=== PATIENT | male | born 1980 | race Caucasian/White ===

== ENCOUNTER → 2019-07-05 09:04 | Outpatient (CLI) | payer OTHER, SELFPAY ==
--- NOTE | 2019-07-05 09:07 | US_ITS ---
PROCEDURE: US SOFT TISSUE HEAD AND NECK the CLINICAL INDICATION: CERVICAL LYMPHADENOPATHY COMPARISON: US THYROID from 07/05/2019 FINDINGS: No cyst or nodule is evident. There is homogeneous echogenicity the parotid and submandibular glands. No abnormal fluid collection. IMPRESSION: Unremarkable ultrasound of the soft tissues of the neck. Dictated by: Elian Klein MD 07/22/2019 11:20 Electronically signed by Elian Klein MD in [place] 07/22/2019 11:20
--- NOTE | 2019-07-05 09:07 | US_ITS ---
PROCEDURE: US THYROID CLINICAL INDICATION: THYROMEGALY Knot in throat COMPARISON: US SOFT TISSUE HEAD AND NECK from 07/05/2019 FINDINGS: Right lobe: The 4.6 x 1.8 x 1.3 cm. No nodules. Slight heterogeneous echogenicity Left lobe: 4.4 x 1.8 x 1.4 cm. No discrete nodule with slight heterogeneous echogenicity Isthmus: The isthmus is thickened at 8 mm Additional findings: IMPRESSION: Enlarged thyroid gland. No discrete nodules Dictated by: Elian Klein MD 07/05/2019 18:45 Electronically signed by Elian Klein MD in [place] 07/05/2019 18:45
== END ==
PROVIDERS: PCP Nurse Practitioner; Visit Provider Nurse Practitioner
DX: R59.0 Localized enlarged lymph nodes (principal); E01.0 Iodine-deficiency related diffuse (endemic) goiter
CPT/HCPCS: 76536

== ENCOUNTER → 2019-08-19 10:14 | Outpatient (POV) | payer OTHER, SELFPAY ==
[2019-08-19 10:29] VITALS: BP 135/80; PULSE 93; RESP 18; O2SAT 99; BMI 39.0
--- NOTE | 2019-08-19 12:28 | HMH.PMCON ---
Assessment and Plan (1) Degenerative joint disease (DJD) of lumbar spine Current visit: Yes Status: Acute Category: Medical Code(s): M47.816 - Spondylosis without myelopathy or radiculopathy, lumbar region (2) Lumbar radiculopathy Current visit: Yes Status: Acute Category: Medical Code(s): M54.16 - Radiculopathy, lumbar region (3) Bilateral sacroiliitis Current visit: Yes Status: Acute Category: Medical Code(s): M46.1 - Sacroiliitis, not elsewhere classified - Assessment and plan all Dx Assessment and Plan for all problems:: Given the patient symptoms, I do think he would benefit from a bilateral SI joint injection. He does have notable point tenderness over his bilateral SI joints. We will schedule him for the injections and see him back in the clinic to reassess his symptoms. I also discussed that in the event that the injections do not give him relief we may proceed to a lumbar epidural steroid injection he is in agreement with the plan of care. He is not on any anticoagulation therapy We will refill the patient's Flexeril 10 mg 1 tablet p.o. 3 times daily. Patient's been instructed to contact clinic if he has any concerns before his next appointment. Dr. Rivas has reviewed this note and agrees with this plan of care. This note was dictated using voice recognition software and make contain errors or omissions. HPI - Data of Consult Patient: new to practice Consult date: 08/19/19 Requesting Physician: Ashley Dash APRN Primary Care Provider: Sakina Walter APRN - Consult Narrative Reason for consult: Low back pain, bilateral leg pain History of present illness: Mr. Denis is a 38 year old male who presents today for consultation for low back pain with radiation into bilateral buttocks. With a burning sensation to his bilateral legs. Patient says his pain does stop at his bilateral knees. He says the pain has been ongoing for a couple years, that progressively got worse since June. Patient says he has not had any type of traumatic event. He states his pain developed after sneezing while in the shower. Patient says he is also had groin pain in the past and did follow-up with his primary care provider, however, was told that he needed more sex from his to relieve the groin pain . Patient says that he was blown off by my doctor . Patient says that they never did address his pain any further. He has tried steroids orally and says that he did get relief, however, his pain has returned. He says that steroids taken with muscle relaxers also gave him relief. He also says he did not follow-up with physical therapy for greater than 6 weeks and did get approximately 40 to 50% relief. Patient says unfortunately that his pain does return after he stopped physical therapy. He says he also sees chiropractic therapy. He has taken Flexeril and says he does get relief with this as well. Patient does have imaging of his spine. He has not tried any type of injective therapies. Patient rates his pain a 8 out of 10 today. He is using a cane for ambulation. He says that while he can walk, he feels that the cane does give him some stability with standing and sitting. Patient does state his pain is also worse when rising to a standing position and sitting in a chair. He does continue with anti-inflammatories and a home stretching program. CC: Ashley Dash APRN [facility] History I have reviewed the patient's past medical history: Yes Medical History: Reports:: Gastroesophageal Reflux Disease(GERD), Hyperlipidemia *Have you ever received a pneumonia vaccine?: Yes *Have you received a flu vaccine this season?: Yes - *Social History Smoking Status: Current every day smoker Tobacco Type: cigarettes # Packs/Day (cigarettes): 2 Alcohol Intake: never Alcohol Intake Frequency:: 0-2 drinks per day Substance Use Type: denies use *Occupational Status:: other Housing: house Household Members: family *Cristiane
== END ==
PROVIDERS: PCP Nurse Practitioner; Visit Provider Clinical Nurse Specialist Family Health
DX: M47.816 Spondylosis without myelopathy or radiculopathy, lumbar region (principal); M54.16 Radiculopathy, lumbar region; M46.1 Sacroiliitis, not elsewhere classified
CPT/HCPCS: 99202

== ENCOUNTER → 2019-09-16 14:34 | Outpatient (POV) | payer OTHER, SELFPAY ==
[2019-09-16 15:33] VITALS: BP 141/79; PULSE 86; RESP 18; O2SAT 99; BMI 39.9
--- NOTE | 2019-09-17 09:10 | P.CONS_ITS ---
[facility] Pain Management SOAP Note Subjective:: Patient is a pleasant 38-year-old white male who presents today for follow-up after his bilateral SI joint injections. Patient got 80% relief with this. Patient would like to repeat this given the efficacy I do believe that would be beneficial. He has a positive Sherrill test Bryant sign and SI joint compression test bilaterally. Patient rates his pain today a 5 out of 10. We also discussed an SI joint belt for while he is driving. Patient is continuing a home stretching program and anti-inflammatories. Patient and I also discussed potential cornerlock procedure in the future or an RFA of the SI joints. ROS General: no recent weight change, no fever, no sleep disturbances Respiratory: no cough, no shortness of air, no recurring pulmonary infections Cardiovascular/Peripheral Vascular: No chest pain, No palpitations, no edema, no shortness of breath. Gastrointestinal: no new onset incontinence, normal bowel movements reported Genitourinary: no new onset incontinence Musculoskeletal: Bilateral SI joint pain Psychiatric: normal mood/ affect, [denies depression], [denies anxiety] Neurological: [denies new onset weakness in extremities], [denies new onset balance issues] Objective:: Physical Exam General: Alert and oriented x3, no acute distress, pleasant and cooperative, [on room air] Lungs: Resps E/U, Symmetrical chest expansion, Eyes: PERRL Musculoskeletal: Flexion and extension of lumbar spine somewhat guarded secondary to pain, deep tendon reflexes normal, strength in upper and lower extremities [5/5], antalgic gait noted Neurological: speech clear, 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 Patient's been instructed to call the office if he has any issues prior to his next appointment. Dr. Rivas has reviewed this note and agrees with this plan of care. This note was dictated using voice recognition software and may contain errors or omissions [facility] History I have reviewed the patient's past medical history: Yes Medical History: Reports:: Gastroesophageal Reflux Disease(GERD), Hyperlipidemia Denies:: Cancer, Diabetes Mellitus Type 1, Diabetes Mellitus Type 2, Seizures *Have you ever received a pneumonia vaccine?: Yes *Have you received a flu vaccine this season?: Yes Other Medical History: Denies: Blood Transfusion Reaction Amputation: No Fractures: No - *Social History Smoking Status: Current every day smoker Tobacco Type: cigarettes # Packs/Day (cigarettes): 2 Alcohol Intake: never Alcohol Intake Frequency:: 0-2 drinks per day Substance Use Type: denies use *Occupational Status:: other Housing: house Household Members: family *Travel in the last 8 weeks: None Family Hx:: Unable to obtain
== END ==
PROVIDERS: PCP Nurse Practitioner; Visit Provider Clinical Nurse Specialist Family Health
DX: M46.1 Sacroiliitis, not elsewhere classified (principal); E78.5 Hyperlipidemia, unspecified; K21.9 Gastro-esophageal reflux disease without esophagitis; Z72.0 Tobacco use
CPT/HCPCS: 99212

== ENCOUNTER → 2019-12-03 11:54 | Outpatient (POV) | payer MEDICAID, SELFPAY ==
--- NOTE | 2019-12-03 12:25 | HMH.VVPMSO ---
[facility] Virtual Visit SOAP Consent for virtual visit:: With the recent concerns about the COVID-19, we are trying to minimize exposure to you by shifting to telehealth appointments whenever possible. It restricts me from seeing you in person, but the trade off is protecting you during this pandemic. Can you see and hear me okay, and do you consent to this option? If not, I would be happy to see if we can reschedule your appointment in the future, when feasible. Has patient consented to this virtual visit?: Yes Subjective:: This visit was performed via telemedicine. The patient has chosen to have telemedicine visit for his/her symptoms due to risk associated with COVID19 Patient is a pleasant 47-year-old white male who presents today via telemedicine. He is being treated for sacroiliitis along with low back pain. Patient has degenerative disc disease lumbar spine with lumbar radiculopathy symptoms. He did undergo bilateral SI joint injections for which the patient says he did not get any relief. He rates his pain an 8 out of 10. Patient says that he continues to have right low back pain with radiation into his bilateral hips. He says that the pain is worse to the right side. He says that he has a burning sensation into his right lateral thigh area. He says he also has numbness and tingling into his bilateral lower extremities if he sits in 1 position for more than 2 to 3 minutes. Patient says when he is toileting, he has severe numbness and tingling and difficulty standing due to the numbness and tingling in his legs. Patient has tried sulindac which has given him some relief to his bilateral leg pain, however, he does say that he does not help with his low back pain. He is also on Flexeril which he says he has been taking for many years and has not given him any relief. He does have imaging from [facility] that he says did show bulging disks along with facet arthropathy. Patient wanted to try least invasive procedures before proceeding with any other injective therapies. He does take anti-inflammatories, along with a continued home stretching program. The patient is also had physical therapy in the past. Review of Systems General: No recent weight changes, no fever, no sleep disturbances Respiratory: No cough, no shortness of air, no recurring pulmonary infections Cardiovascular/peripheral vascular: No chest pain, no palpitations, no edema, no shortness of breath Gastrointestinal: No new onset incontinence, normal bowel movements reported Genitourinary: No new onset incontinence Musculoskeletal: Low back pain, hip pain, right leg pain, bilateral leg numbness and tingling Psychiatric: Normal mood/affect Neurological: [Denies weakness in extremities], [denies balance issues] Objective:: Constitutional: Healthy appearing, well-developed, alert and oriented, no acute distress noted Psychiatric: Judgment and insight intact. Mood normal, affect appropriate Head: Normocephalic, atraumatic, extraocular movement intact Respiratory: Nonlabored, non-dyspneic Cardiovascular: No cyanosis, no clubbing, no edema observed Skin: Head and neck, no lesions or rashes noted. Bilateral upper extremities no lesions or rashes noted Gait: Able to walk without assist of heel and toe walk Neurological: Sensation grossly intact per patient C3-T1 Musculoskeletal: Full range of motion, positive straight leg raise Assessment:: Degenerative disc disease lumbar spine with lumbar radiculopathy symptoms, lumbar spondylosis, facet arthropathy Plan:: Unfortunately we are unable to perform any type of injections due to restrictions associated with pandemic. Once restrictions are lifted, we will schedule the patient for medial branch block/facet joint injections at L4-L5 and L5-S1 bilaterally. Given his symptoms and imaging he would likely benefit from this injection. Patient's pain is worse when he is leaning forward. He will also
== END ==
PROVIDERS: Visit Provider Clinical Nurse Specialist Family Health
DX: M51.16 Intervertebral disc disorders with radiculopathy, lumbar region (principal); M47.816 Spondylosis without myelopathy or radiculopathy, lumbar region; M54.06 Panniculitis affecting regions of neck and back, lumbar region
CPT/HCPCS: 99212

== ENCOUNTER 2019-12-27 10:24 | Day surgery (SDC) | payer MEDICAID, SELFPAY ==
[2019-12-27 10:46] VITALS: BP 129/71; PULSE 82; RESP 18; TEMP 36.7; O2SAT 97; BMI 36.2
--- NOTE | 2019-12-27 11:06 | P.PCN_ITS ---
- Procedure Date: 12/27/19 Time: 11:06 Anesthesiologist:: Jeovany Rivas MD Complications:: None Pre-procedure Diagnosis:: Degenerative disc disease of lumbar spine with lumbar spondylosis and facet arthropathy of lumbar spine Post-procedure Diagnosis:: Same Indications for Procedure:: This patient is a pleasant 47-year-old white male who we are treating for low back pain with lumbar spondylosis and facet arthropathy of lumbar spine. He has increasing pain over his low back worse with twisting and extension. He is tender over the facet joints of L4-5 and L5-S1 bilaterally. We will do bilateral lumbar medial branch block/facet joint injections of L4-5 and L5-S1 today to help with his pain symptoms. He has increasing pain which is affecting his activities of daily living and function. We will do these injections today to keep him off oral opioids and out of the emergency room. Procedure Details:: Lumbar medial branch block Informed consent was obtained and the risks and benefits of the procedure was explained to the patient. The back was prepped using ChloraPrep. The skin and subcutaneous tissues were anesthetized using lidocaine. I placed 22-gauge spinal needles into the facet joint/medial branches of L4-L5 and L5-S1 bilaterally. Needle placement was confirmed with dye. After this we injected 3 mL bupivacaine 0.25% and Depo-Medrol 20 mg into each facet joint/medial branch of L4-L5 and L5-S1 bilaterally. We used a total of 80 mg Depo-Medrol for both levels bilaterally. The patient tolerated the procedure well with no complicati ons. Plan and Disposition:: We will follow-up with him in 2 weeks. Will reevaluate symptoms at that time.
[2019-12-27 11:10] VITALS: BP 125/68; PULSE 82; RESP 18
[2019-12-27 11:11] VITALS: BP 132/87; PULSE 85; RESP 18; O2SAT 99
[2019-12-27 11:25] VITALS: BP 149/92; PULSE 85; RESP 18; O2SAT 97
== END 2019-12-27 11:10 | disposition home or self-care (01) ==
LOC: SC.PAINP 10:25
PROVIDERS: Visit Provider Anesthesiology
DX: M51.36 Other intervertebral disc degeneration, lumbar region (principal); M47.816 Spondylosis without myelopathy or radiculopathy, lumbar region; M54.06 Panniculitis affecting regions of neck and back, lumbar region
CPT/HCPCS: 64493; 64494; J1030; Q9966

== ENCOUNTER → 2020-01-13 08:51 | Outpatient (POV) | payer MEDICAID, SELFPAY ==
--- NOTE | 2020-01-13 09:03 | HMH.VVPMSO ---
[facility] Virtual Visit SOAP Consent for virtual visit:: With the recent concerns about the COVID-19, we are trying to minimize exposure to you by shifting to telehealth appointments whenever possible. It restricts me from seeing you in person, but the trade off is protecting you during this pandemic. Can you see and hear me okay, and do you consent to this option? If not, I would be happy to see if we can reschedule your appointment in the future, when feasible. Has patient consented to this virtual visit?: Yes Subjective:: Patient is a pleasant 39-year-old white male who presents today for follow-up after lumbar medial branch block. Patient got 90% relief of his symptomology postinjection. This lasted quite some time for him. The pain is beginning to return he is a neurotomy candidate. Patient is interested in pursuing an RFA/neurotomy. Patient's not on any anticoagulation therapy. He rates his pain today 6 out of 10. Medications along with anti-inflammatories have not been beneficial. Patient is tried and failed other conservative measures of pain relief. ROS General: no recent weight change, no fever, no sleep disturbances Respiratory: no cough, no shortness of air, no recurring pulmonary infections Cardiovascular/Peripheral Vascular: No chest pain, No palpitations, no edema, no shortness of breath. Gastrointestinal: no new onset incontinence, normal bowel movements reported Genitourinary: no new onset incontinence Musculoskeletal: Back pain Psychiatric: normal mood/ affect Neurological: [denies new onset weakness in extremities], [denies new onset balance issues] Objective:: Physical exam: Constitutional: Healthy appearing, well-developed, alert, in no acute distress Psychiatric: Judgment and insight intact, Alert and oriented x4 Mood and affect: Mood normal, affect appropriate Head and face: Inspection: Normocephalic atraumatic, extraocular movement intact Respiratory: Breathing nonlabored, nondyspneic Cardiovascular: No cyanosis, clubbing, or edema observed Skin: Head and neck: Skin with no lesions or rash observed Gait: Able to walk without assistive device: Able to heel and toe walk Neurologic: Sensation grossly intact per patient Musculoskeletal: Decreased range of motion lumbar spine patient has difficulty with twisting motions noted on camera Assessment:: Degenerative disc disease lumbar spine with lumbar spondylosis and facet arthropathy lumbar spine Plan:: We will schedule a repeat L4-L5 L5-S1 bilateral medial branch block/facet joint injection to help ensure that he will do well with an RFA. He is not on any anticoagulation therapy. I will follow-up with him after this reassess his symptoms at that time he has been instructed to call the office if he has any issues prior to his next appointment. This encounter was performed as a telemedicine visit via secure 2 way video and audio to minimize risk and transmission of Covid-19. The patient and we understand the limitations of a telemedicine visit including inability to check reflexes, possibly missing subtle findings on physical exam. Alternative options were presented to the patient and the patient elected to proceed with the visit. We specifically discussed risk factors for Covid-19 including age, heart or lung disease, diabetes, immunosuppression and travel. We also discussed that NSAIDs may worsen Covid-19 infection symptoms and that they should not be used to treat Covid-19 symptoms. Patient was also informed that corticosteroids in any form oral or injectable will decrease immune response and may increase risk of Covid-[address] Rivas has reviewed this patient's chart and this note and agrees with plan of care. Patient has been instructed to call the office if they have any issues prior to the next appointment. Time In:: 08:50 Time Out:: 09:00 [facility] History I have reviewed the patient's past medical history: Yes Medical History: Rep
== END ==
PROVIDERS: Visit Provider Clinical Nurse Specialist Family Health
DX: M51.36 Other intervertebral disc degeneration, lumbar region (principal); M47.816 Spondylosis without myelopathy or radiculopathy, lumbar region; M54.06 Panniculitis affecting regions of neck and back, lumbar region
CPT/HCPCS: 99212

== ENCOUNTER 2020-01-24 09:52 | Day surgery (SDC) | payer MEDICAID, SELFPAY ==
[2020-01-24 10:55] VITALS: BP 128/81; PULSE 89; RESP 18; TEMP 36.4; O2SAT 97; BMI 36.2
[2020-01-24 11:09] VITALS: BP 142/85; BP 145/85; PULSE 84; PULSE 85; RESP 18; TEMP 36.7; O2SAT 99
--- NOTE | 2020-01-24 11:13 | HMH.PMPROC ---
- Procedure Date: 01/24/20 Time: 11:13 Anesthesiologist:: Jeovany Rivas MD Complications:: None Pre-procedure Diagnosis:: Degenerative disc disease of lumbar spine with lumbar spondylosis and facet arthropathy of lumbar spine Post-procedure Diagnosis:: Same Indications for Procedure:: This patient is a pleasant 39-year-old white male who we are treating for low back pain with lumbar spondylosis and facet arthropathy of lumbar spine. He has had one round of medial branch blocks with 80 to 90% relief in his pain symptoms. He presents for repeat bilateral lumbar medial branch blocks of L4-5 and L5-S1 today. If he does well from these we will progress to radiofrequency ablation of these levels. Procedure Details:: Lumbar medial branch block Informed consent was obtained and the risks and benefits of the procedure was explained to the patient. The back was prepped using ChloraPrep. The skin and subcutaneous tissues were anesthetized using lidocaine. I placed 22-gauge spinal needles into the facet joint/medial branches of L4-L5 and L5-S1 bilaterally. Needle placement was confirmed with dye. After this we injected 5 mL bupivacaine 0.25% and Depo-Medrol 20 mg into each facet joint/medial branch of L4-L5 and L5-S1 bilaterally. We used a total of 80 mg Depo-Medrol for both levels bilaterally. The patient tolerated the procedure well with no complications. Plan and Disposition:: We will follow-up with him in 2 weeks. Will reevaluate symptoms at that time.
[2020-01-24 11:15] VITALS: BP 128/80; PULSE 69; RESP 18; O2SAT 96
== END 2020-01-24 11:15 | disposition home or self-care (01) ==
LOC: SC.PAINP 09:53
PROVIDERS: Visit Provider Anesthesiology
DX: M51.36 Other intervertebral disc degeneration, lumbar region (principal); M47.816 Spondylosis without myelopathy or radiculopathy, lumbar region; M12.88 Other specific arthropathies, not elsewhere classified, other specified site; Z72.0 Tobacco use
CPT/HCPCS: 64493; 64494; J1030; Q9966

== ENCOUNTER → 2020-02-10 14:19 | Outpatient (POV) | payer MEDICAID, SELFPAY ==
--- NOTE | 2020-02-10 14:48 | HMH.VVPMSO ---
[facility] Virtual Visit SOAP Consent for virtual visit:: With the recent concerns about the COVID-19, we are trying to minimize exposure to you by shifting to telehealth appointments whenever possible. It restricts me from seeing you in person, but the trade off is protecting you during this pandemic. Can you see and hear me okay, and do you consent to this option? If not, I would be happy to see if we can reschedule your appointment in the future, when feasible. Has patient consented to this virtual visit?: Yes Subjective:: Patient is a pleasant 39-year-old white male who presents today via virtual visit to discuss his recent lumbar medial branch block. Patient did get relief with this however it was not as long as the one previously. Patient got 90% relief with his medial branch block. He and I discussed radiofrequency ablation he would like to move forward with this he is a neurotomy candidate given the success of his 2 medial branch blocks. He is not on any anticoagulation therapy. Patient states his right side hurts worse than his left side. We will start with his right side. He is also on gabapentin 100 mg at nighttime he denies any side effects to this but states it is not beneficial for him. We will increase it to 300 mg at nighttime. ROS General: no recent weight change, no fever, no sleep disturbances Respiratory: no cough, no shortness of air, no recurring pulmonary infections Cardiovascular/Peripheral Vascular: No chest pain, No palpitations, no edema, no shortness of breath. Gastrointestinal: no new onset incontinence, normal bowel movements reported Genitourinary: no new onset incontinence Musculoskeletal: Back pain Psychiatric: normal mood/ affect, Neurological: [denies new onset weakness in extremities], [denies new onset balance issues] Objective:: Physical exam: Constitutional: Healthy appearing, well-developed, alert, in no acute distress Psychiatric: Judgment and insight intact, Alert and oriented x4 Mood and affect: Mood normal, affect appropriate Head and face: Inspection: Normocephalic atraumatic, extraocular movement intact Respiratory: Breathing nonlabored, nondyspneic Cardiovascular: No cyanosis, clubbing, or edema observed Skin: Head and neck: Skin with no lesions or rash observed Gait: Able to walk without assistive device: Able to heel and toe walk Neurologic: Sensation grossly intact per patient Musculoskeletal: Decreased range of motion lumbar spine Assessment:: Degenerative disc disease lumbar spine with lumbar facet arthropathy and spondylosis Plan:: We will set the patient up for 2 level RFA at L4-L5 L5-S1 bilaterally. We will start with the right side and then in 2 weeks to the left side. He has been instructed to call the office if he has any issues prior to his next appointment. Crease his gabapentin to 300 [address] Rivas has reviewed this note and agrees with this plan of care. This note was dictated using voice recognition software and may contain errors or omissions Time In:: 14:20 Time Out:: 14:30 [facility] History I have reviewed the patient's past medical history: Yes Medical History: Reports:: Gastroesophageal Reflux Disease(GERD), Hyperlipidemia, Seizures Denies:: Cancer, Diabetes Mellitus Type 1, Diabetes Mellitus Type 2, MRSA *Have you ever received a pneumonia vaccine?: Yes *Have you received a flu vaccine this season?: Yes Other Medical History: Denies: Blood Transfusion Reaction Amputation: No Fractures: No - *Social History Smoking Status: Current every day smoker Tobacco Type: cigarettes # Packs/Day (cigarettes): 2 Alcohol Intake: never Alcohol Intake Frequency:: 0-2 drinks per day Substance Use Type: denies use *Occupational Status:: other Housing: house Household Members: family *Travel in the last 8 weeks: None Family Hx:: Unable to obtain
== END ==
PROVIDERS: Visit Provider Clinical Nurse Specialist Family Health
DX: M51.36 Other intervertebral disc degeneration, lumbar region (principal); M12.88 Other specific arthropathies, not elsewhere classified, other specified site; M47.816 Spondylosis without myelopathy or radiculopathy, lumbar region
CPT/HCPCS: 99212

== ENCOUNTER → 2020-02-18 17:06 | Outpatient (CLI) | payer MEDICAID, SELFPAY ==
[2020-02-18 17:53] LABS: Basophils % 0.5 % (0.1-2.0); Eosinophils # 0.3 K/mm3 (0.0-0.4); Eosinophils % 3.9 % (0.1-12.0); Hematocrit 44.4 % (42.0-52.0); Hemoglobin 15.1 g/dL (14.1-18.0); Lymphocytes # 1.8 K/mm3 (0.7-4.5); Lymphocytes % 27.7 % (10-50); Mean Corpuscular HGB Conc 34.1 g/dL (31.8-35.4); Mean Corpuscular Hemoglobin 31.3 pg (27.0-31.2); Mean Platelet Volume 10.1 fl (7.4-10.4); Monocytes # 0.4 K/mm3 (0.1-1.0); Monocytes % 6.6 % (1.7-9.3); Neutrophils # 3.9 K/mm3 (1.8-7.8); Neutrophils % 61.2 % (37.0-80.0); Platelet Count 229 K/mm3 (142-424); Red Blood Count 4.83 M/mm3 (4.60-6.20); Red Cell Distribution Width 13.3 % (11.5-17.5); White Blood Count 6.3 K/mm3 (4.8-10.8)
[2020-02-18 17:55] LABS: Chloride 105 mmol/L (98-107); Sodium 139 mmol/L (136-145)
[2020-02-18 17:57] LABS: Alanine Aminotransferase 42 U/L (12-78); Alkaline Phosphatase 90 U/L (38-126); Aspartate Amino Transferase 29 U/L (17-59); Bilirubin,Total 0.6 mg/dl (0.2-1.3); Blood Urea Nitrogen 12 mg/dl (9-20); Estimated Glomerular Filt Rate 83 ml/min (>60); GFR (African American) 100 ML/MIN (>60)
[2020-02-18 17:58] LABS: Albumin Level 4.2 g/dl (3.5-5.0); Albumin/Globulin Ratio 1.7 (1.1-1.8); Calcium 9.3 mg/dl (8.4-10.2); Carbon Dioxide 29 mmol/L (22.0-30.0); Chol/HDL Ratio 2.8 (1-3.5); Cholesterol 131 mg/dl (140-200); Globulin 2.5 g/dL (1.3-3.2); Glucose 129 mg/dl (74-100); HDL Cholesterol 47 mg/dl (40-60); Total Protein,Serum 6.7 g/dl (6.3-8.2); Triglycerides 200 mg/dl (30-150); VLDL Cholesterol 40 mg/dL (0-40)
[2020-02-18 18:10] LABS: Direct LDL Cholesterol 61.95 mg/dL (100-129)
[2020-02-18 18:16] LABS: T4 (Thyroxine) 8.2 ug/dl (5.53-11.0)
[2020-02-18 18:29] LABS: Thyroid Stimulating Hormone 1.46 uIU/mL (0.465-4.68)
== END ==
PROVIDERS: Visit Provider Nurse Practitioner Family
DX: Z00.00 Encounter for general adult medical examination without abnormal findings (principal)
CPT/HCPCS: 80053; 80061; 84436; 84443; 85025

== ENCOUNTER 2020-02-28 13:53 | Day surgery (SDC) | payer MEDICAID, SELFPAY ==
[2020-02-28 14:40] VITALS: BP 132/87; PULSE 74; RESP 18; TEMP 36.9; O2SAT 97; BMI 39.9
--- NOTE | 2020-02-28 15:08 | HMH.PMPROC ---
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 He is done well with previous medial branch blocks. He presents for RFA to the facet joints of L4-5 and L5-S1 today. Procedure Details:: Lumbar RFA informed consent was obtained and the risk and benefits of the procedure was explained to the patient. Patient was placed prone on the procedure table. The patient was prepped and draped in sterile fashion. C-arm fluoroscopy was used to view the lumbar spine. The skin and subcutaneous tissues were anesthetized using lidocaine. I placed 20-gauge RF needles into the facet joints of L4-5 and L5-S1 levels on the right side. We underwent sensory stimulation. There is good sensory stimulation at 0.8 V. We underwent motor stimulation. There is no motor stimulation at 2 V. We then anesthetized these levels with lidocaine and Depo-Medrol. I used a total of 40 mg Depo-Medrol for both levels. I then burned both levels of L4-5 and L5-S1 facet joint/medial branches on the right side each one for 4 minutes at 80 ?C.Patient tolerated the procedure well with no complication. Plan and Disposition:: We will follow-up with him in 2 weeks. Will reevaluate his symptoms and plan on RFA to the facet joint/medial branches of L4-5 and L5-S1 on the left side.
[2020-02-28 15:09] VITALS: BP 136/89; PULSE 85; RESP 18; TEMP 36.6; O2SAT 99
[2020-02-28 15:11] VITALS: BP 152/89; PULSE 69; RESP 18; O2SAT 98
[2020-02-28 15:20] VITALS: BP 153/83; PULSE 66; RESP 18; O2SAT 97
== END 2020-02-28 15:20 | disposition home or self-care (01) ==
LOC: SC.PAINP 13:56
PROVIDERS: PCP Nurse Practitioner Family; Visit Provider Anesthesiology
DX: M51.36 Other intervertebral disc degeneration, lumbar region (principal); M12.88 Other specific arthropathies, not elsewhere classified, other specified site; M47.816 Spondylosis without myelopathy or radiculopathy, lumbar region; I10 Essential (primary) hypertension; M46.1 Sacroiliitis, not elsewhere classified; Z79.899 Other long term (current) drug therapy; Z72.0 Tobacco use; E78.5 Hyperlipidemia, unspecified; J45.909 Unspecified asthma, uncomplicated; F41.9 Anxiety disorder, unspecified; F32.9 Major depressive disorder, single episode, unspecified; Z82.49 Family history of ischemic heart disease and other diseases of the circulatory system
CPT/HCPCS: 64635; 64636; J1040

== ENCOUNTER 2020-03-13 09:30 | Day surgery (SDC) | payer MEDICAID, SELFPAY ==
[2020-03-13 09:45] VITALS: BP 136/86; PULSE 93; RESP 18; TEMP 36.6; O2SAT 97; BMI 39.0
--- NOTE | 2020-03-13 10:22 | HMH.PMPROC ---
- Procedure Date: 03/13/20 Time: 10:22 Anesthesiologist:: Jeovany Rivas MD Complications:: None Pre-procedure Diagnosis:: Degenerative disc disease of lumbar spine with lumbar facet arthropathy and lumbar spondylosis Post-procedure Diagnosis:: Same Indications for Procedure:: This patient is a pleasant 39-year-old white male who we are treating for low back pain with lumbar spondylosis and facet arthropathy of lumbar spine. He is done well with previous medial branch blocks and his right-sided RFA of L4-5 and L5-S1. He presents for RFA to the same levels of L4-5 and L5-S1 on the left side today. Procedure Details:: Lumbar RFA informed consent was obtained and the risk and benefits of the procedure was explained to the patient. Patient was placed prone on the procedure table. The patient was prepped and draped in sterile fashion. C-arm fluoroscopy was used to view the lumbar spine. The skin and subcutaneous tissues were anesthetized using lidocaine. I placed 20-gauge RF needles into the facet joints of L4-5 and L5-S1 levels on the left side. We underwent sensory stimulation. There is good sensory stimulation at 0.8 V. We underwent motor stimulation. There is no motor stimulation at 2 V. We then anesthetized these levels with lidocaine and Depo-Medrol. I used a total of 40 mg Depo-Medrol for both levels. I then burned both levels of 4 5 and L5-S1 facet joint/medial branches on the left side for 4 minutes at 80 ?C Patient tolerated the procedure well with no complication. Plan and Disposition:: We will follow-up with him in 2 weeks. Will reevaluate symptoms at that time.
[2020-03-13 10:24] VITALS: BP 125/88; BP 140/82; PULSE 88; RESP 18; O2SAT 99
[2020-03-13 10:44] LABS: POC Glucose,Bedside 155 (70-110)
[2020-03-13 11:00] VITALS: BP 115/80; PULSE 90; RESP 18; O2SAT 98
== END 2020-03-13 11:00 | disposition home or self-care (01) ==
LOC: SC.PAINP 09:31
PROVIDERS: PCP Nurse Practitioner Family; Visit Provider Anesthesiology
DX: M51.36 Other intervertebral disc degeneration, lumbar region (principal); M47.816 Spondylosis without myelopathy or radiculopathy, lumbar region; M12.88 Other specific arthropathies, not elsewhere classified, other specified site; E11.9 Type 2 diabetes mellitus without complications; I10 Essential (primary) hypertension; Z72.0 Tobacco use; J45.909 Unspecified asthma, uncomplicated; F41.9 Anxiety disorder, unspecified; F32.9 Major depressive disorder, single episode, unspecified; Z79.899 Other long term (current) drug therapy; E78.5 Hyperlipidemia, unspecified; R56.9 Unspecified convulsions
CPT/HCPCS: 64635; 64636; 82962; J1040

== ENCOUNTER 2020-03-31 16:20 | Emergency (ER) | payer MEDICAID, SELFPAY ==
[2020-03-31 16:44] VITALS: BP 140/85; PULSE 100; RESP 20; TEMP 36.6; O2SAT 99; BMI 39.9
--- NOTE | 2020-03-31 16:55 | HMH.EDUTC ---
[facility] [place] Clinical Impression: Acute viral pharyngitis Disposition: Home, Self-Care Condition on Discharge: Good Instructions: DI for Viral Pharyngitis, Preventing the Spread of Coronavirus Discharge Instructions Additional Instructions: increase fluids Tylenol or motrin as needed if symptoms worsen or do not improve return or be seen in ed covid precautions Referrals: Joe Joseph APRN [Primary Care Provider] - Forms: Work/School Release Time of Disposition: 16:57 Medical Decision Making - Kehinde Inquiry Pt receiving controlled substance: No Vital Signs: 03/31/20 16:44 Temperature 97.8 F Temperature Source Oral Pulse Rate [Right Brachial] 100 H Respiratory Rate 20 Blood Pressure [Right Arm] 140/85 Blood Pressure Mean [Right Arm] 103 Blood Pressure Source [Right Arm] Automatic Cuff Blood Pressure Position [Right Arm] Sitting 02 Sat by Pulse Oximetry 99 Oxygen Delivery Method Room Air Orders (Tests/Meds): ORDERS Category Date Time Status SARS-CoV-2, JEANIE Stat Lab 03/31/20 16:49 Ordered [facility] [place] HPI - General Chief complaint: Urgent Treatment Center Stated complaint: covid test request Time Seen by Provider: 03/31/20 16:55 Mode of Arrival: Ambulatory Source of Information: Patient Limitations: No Limitations Description of Symptoms (Recalled from Triage Doc. by RN): sore throat, cough HEENT Symptoms (Recalled from RN notes): Yes Resp Symptoms (Recalled from RN notes): Yes Skin Symptoms (Recalled from RN notes): No MS Symptoms (Recalled from RN notes): No Functional Status (Recalled from RN notes): none - History of Present Illness Provider Complaint: 39 yr old male c/o sore throat and low grade fever for 2 days and would like a covid test. Pt states they have to older people lives with them and just want to make sure. - Related Data Home Medications Medication Instructions Recorded Confirmed Atorvastatin Calcium [Atorvastatin 10 mg PO DAILY 08/29/19 03/31/20 10mg Tab] Montelukast Sodium [Montelukast 10 mg PO HS 08/29/19 03/31/20 10mg Tab] Omeprazole [Omeprazole 40mg 40 mg PO DAILY 08/29/19 03/31/20 Capsule] Gabapentin [Gabapentin 300mg Cap] 300 mg PO DAILY 12/27/19 03/31/20 Escitalopram Oxalate 10 mg PO DAILY 02/28/20 03/31/20 Fluticasone Propionate [Flonase 1 spray INTRANASAL DAILY 03/13/20 03/31/20 Allergy Relief NS] Loratadine [Allergy Relief] 10 mg PO DAILY 03/13/20 03/31/20 hydroCHLOROthiazide 25 mg PO DAILY 03/13/20 03/31/20 [Hydrochlorothiazide 12.5mg Tab] Previous Rx's Medication Instructions Recorded cyclobenzaprine 10 mg tablet 10 mg PO TID PRN #90 tab 06/15/19 Vistaril 25 mg capsule 25 mg PO TID PRN #60 cap NS 02/18/20 Allergies Allergy/AdvReac Type Severity Reaction Status Date / Time No Known Allergies Allergy Verified 03/31/20 16:49 - Worker's Comp Is this a Worker's Comp case?: No [facility] History - Hepatitis A Screen Drug use history?: No High risk sexual behaviors?: No History of sexually transmitted infection?: No Currently employed?: No Childcare worker?: No Do you have indoor plumbing?: No Do you have electricity?: Yes Attestation statement:: This patient has been screened for Hepatitis A risk factors. I have reviewed the patient's past medical history: Yes Medical History: Reports:: Gastroesophageal Reflux Disease(GERD), Hyperlipidemia, Hypertension Denies:: Cancer, Diabetes Mellitus Type 1, Diabetes Mellitus Type 2, Internal Pacemaker, MRSA, Seizures Other Medical History: Denies: Blood Transfusion Reaction Other Surgeries: Yes: Other. No: Pacemaker Amputation: No Fractures: No Comment: tumor on leg, teeth - Social History Smoking Status: Current every day smoker Tobacco Type: cigarettes # Packs/Day (cigarettes): 1 Alcohol Intake: never Alcohol Intake Frequency:: 0-2 drinks per day Substance Use Type: denies use Occupational Status: unemployed Housing: house Household Members: spouse, signifi
[2020-03-31 17:07] LABS: UTC Strep Screen (Rapid) Negative (Negative)
[2020-03-31 17:15] VITALS: BP 140/85; PULSE 100; RESP 20; TEMP 36.6; O2SAT 99
[2020-04-02 13:40] LABS: Covid-19 Nasal PCR Sendout Lex NOT DETECTED
== END 2020-03-31 17:20 | disposition home or self-care (01) ==
PROVIDERS: Emergency Provider Nurse Practitioner Family; PCP Nurse Practitioner Family
DX: J02.9 Acute pharyngitis, unspecified (principal); K21.9 Gastro-esophageal reflux disease without esophagitis; E78.5 Hyperlipidemia, unspecified; I10 Essential (primary) hypertension; F17.210 Nicotine dependence, cigarettes, uncomplicated; Z79.899 Other long term (current) drug therapy
CPT/HCPCS: 87880; 99202; U0004

== ENCOUNTER → 2020-04-20 11:39 | Outpatient (POV) | payer MEDICAID, SELFPAY ==
--- NOTE | 2020-04-20 12:17 | P.CONS_ITS ---
[facility] Pain Management SOAP Note Subjective:: Patient is a pleasant 39-year-old white male who presents today for follow-up after lumbar RFA. Patient states that the left side of his back is doing well however he was putting in an air conditioning unit and started having a right lower back pain that was significant. He rates it a 4 out of 10 today. He is a positive Sherrill test Marcy's test and SI joint compression test on this area. Patient and I discussed a right SI joint injection I do believe it would benefit him. He is quite uncomfortable. We also will continue his gabapentin and increase it to 3 times a day. We will also keep his muscle relaxers at this time. He is not having any luck with sleeping. ROS General: no recent weight change, no fever, no sleep disturbances Respiratory: no cough, no shortness of air, no recurring pulmonary infections Cardiovascular/Peripheral Vascular: No chest pain, No palpitations, no edema, no shortness of breath. Gastrointestinal: no new onset incontinence, normal bowel movements reported Genitourinary: no new onset incontinence Musculoskeletal: Back pain, SI joint pain Psychiatric: normal mood/ affect Neurological: [denies new onset weakness in extremities], [denies new onset balance issues] Objective:: Physical Exam General: Alert and oriented x3, no acute distress, pleasant and cooperative, [on room air] Lungs: Resps E/U, Symmetrical chest expansion, Eyes: PERRL Musculoskeletal: Flexion and extension of lumbar spine somewhat guarded secondary to pain, deep tendon reflexes normal, strength in upper and lower extremities [5/5], slightly antalgic gait noted Neurological: speech clear, r d intern equal, no gross sensory deficits Assessment:: Degenerative disc disease lumbar spine with lumbar facet arthropathy and sacroiliitis Plan:: Set up a right SI joint injection for the patient. We will continue his gabapentin 3 mg and increase it to 3 times a day. We will also continue his muscle relaxer.Dr. Rivas has reviewed this note and agrees with this plan of care. This note was dictated using voice recognition software and may contain errors or omissions [facility] History I have reviewed the patient's past medical history: Yes Medical History: Reports:: Gastroesophageal Reflux Disease(GERD), Hyperlipidemia, Hypertension Denies:: Cancer, Diabetes Mellitus Type 1, Diabetes Mellitus Type 2, Internal Pacemaker, MRSA, Seizures *Have you ever received a pneumonia vaccine?: No *Have you received a flu vaccine this season?: No Other Medical History: Denies: Blood Transfusion Reaction Other Surgeries: Yes: Other. No: Pacemaker Amputation: No Fractures: No - *Social History Smoking Status: Current every day smoker Tobacco Type: cigarettes # Packs/Day (cigarettes): 1 Alcohol Intake: never Alcohol Intake Frequency:: 0-2 drinks per day Substance Use Type: denies use *Occupational Status:: unemployed Housing: house Household Members: spouse, significant other, family *Travel in the last 8 weeks: None Family Hx:: Heart Attack, Hyperlipidemia, Hypertension
[2020-04-20 12:24] VITALS: BP 145/78; PULSE 85; RESP 18; TEMP 36.6; O2SAT 99; BMI 39.9
== END ==
PROVIDERS: PCP Nurse Practitioner Family; Visit Provider Clinical Nurse Specialist Family Health
DX: M51.36 Other intervertebral disc degeneration, lumbar region (principal); M12.88 Other specific arthropathies, not elsewhere classified, other specified site; M46.1 Sacroiliitis, not elsewhere classified
CPT/HCPCS: 99212

== ENCOUNTER 2020-05-01 14:49 | Day surgery (SDC) | payer MEDICAID, SELFPAY ==
[2020-05-01 14:53] VITALS: BP 135/77; PULSE 108; RESP 18; TEMP 36.4; O2SAT 96; BMI 40.1
[2020-05-01 15:12] VITALS: BP 139/92; PULSE 100; RESP 18
[2020-05-01 15:13] VITALS: BP 138/78; PULSE 85; RESP 18; O2SAT 98
--- NOTE | 2020-05-01 15:13 | P.PCN_ITS ---
- Procedure Date: 05/01/20 Time: 15:13 Anesthesiologist:: Jeovany Rivas MD Complications:: None Pre-procedure Diagnosis:: Sacroiliitis Post-procedure Diagnosis:: Same Indications for Procedure:: This patient is a pleasant 39-year-old white male who we are treating for low back pain. He is doing well after lumbar RFA. He has now developed some right- sided hip pain. He is tender over his right SI joint. Is positive Marcy's test on right side. Is positive Sherrill test on the right side. Is positive SI joint compression test on right side. We will do a right SI joint injection und er fluoroscopy to help with his pain symptoms. Procedure Details:: Right SI joint injection under fluoroscopy Informed consent was obtained and the risks and benefits of the procedure was going to the patient. Patient was taken to the procedure room. Patient was placed prone on the procedure table. The right hip was prepped using ChloraPrep. The skin and subcutaneous tissues were anesthetized using lidocaine. I placed a 22-gauge spinal needle into the inferior aspect of the right SI joint. Needle placement was confirmed with dye. After this we injected 5 mL bupivacaine 0.25% and Depo-Medrol 40 mg into the right SI joint. The patient tolerated the procedure well with no complication. Plan and Disposition:: We will follow-up with him in 2 weeks. Will reevaluate symptoms at that time.
[2020-05-01 15:20] VITALS: BP 135/80; PULSE 99; RESP 20; O2SAT 96
== END 2020-05-01 15:21 | disposition home or self-care (01) ==
LOC: SC.PAINP 14:50
PROVIDERS: PCP Nurse Practitioner Family; Visit Provider Anesthesiology
DX: M46.1 Sacroiliitis, not elsewhere classified (principal); Z72.0 Tobacco use; I10 Essential (primary) hypertension; E78.5 Hyperlipidemia, unspecified; J45.909 Unspecified asthma, uncomplicated; F41.9 Anxiety disorder, unspecified; F32.9 Major depressive disorder, single episode, unspecified; M19.90 Unspecified osteoarthritis, unspecified site; Z79.899 Other long term (current) drug therapy; G47.33 Obstructive sleep apnea (adult) (pediatric)
CPT/HCPCS: 27096; G0260; J1040; Q9966

== ENCOUNTER → 2020-05-25 13:12 | Outpatient (POV) | payer MEDICAID, SELFPAY ==
[2020-05-25 13:31] VITALS: BP 133/78; PULSE 85; RESP 18; TEMP 36.7; O2SAT 98; BMI 39.0
--- NOTE | 2020-05-25 14:09 | HMH.PAINSOAP ---
[facility] Pain Management SOAP Note Subjective:: Patient is pleasant 39-year-old white male who presents today for follow-up. Patient had a right SI joint injection. He states he got 3 days of relief with his injection. Patient is very interested in the coronary lock procedure. Patient has had an RFA in the past and his back pain is better however he is having a lot of right-sided SI joint pain. It does not past his knee. Patient has radiation into his groin. Patient and I had a long discussion in regard to the process of getting a corner lock. I do believe repeating his SI joint injection would be beneficial. He is currently not on any prescribed anti-inflammatory we will start him on diclofenac 75 mg 1 p.o. twice daily. He is on gabapentin however he states is not beneficial for him. We will change the medication to Lyrica 75 mg 1 p.o. twice daily. [facility] #[id number] reviewed and appropriate. Patient currently has been out of work for a year he states due to pain. ROS General: no recent weight change, no fever, no sleep disturbances Respiratory: no cough, no shortness of air, no recurring pulmonary infections Cardiovascular/Peripheral Vascular: No chest pain, No palpitations, no edema, no shortness of breath. Gastrointestinal: no new onset incontinence, normal bowel movements reported Genitourinary: no new onset incontinence Musculoskeletal: SI joint pain on the right side Psychiatric: normal mood/ affect Neurological: [denies new onset weakness in extremities], [denies new onset balance issues] Objective:: Physical Exam General: Alert and oriented x3, no acute distress, pleasant and cooperative, [on room air] Lungs: Resps E/U, Symmetrical chest expansion, Eyes: PERRL Musculoskeletal: Flexion and extension of lumbar spine somewhat guarded secondary to pain, deep tendon reflexes normal, strength in upper and lower extremities [5/5], slightly antalgic gait noted, positive Sherrill test SI joint compression test and Marcy's test on the right side. Neurological: speech clear, salt grinder equal, no gross sensory deficits Assessment:: Sacroiliitis Plan:: We will set him up for another repeat our right SI joint injection to see if this is beneficial we will start him on Lyrica 75 mg 1 p.o. twice daily and diclofenac 75 mg 1 p.o. twice daily. I will follow-up with him after this reassess his symptoms at that time he has been instructed to call the office if he has any issues prior to his next appointment. Dr. Rivas has reviewed this note and agrees with this plan of care. This note was dictated using voice recognition software and may contain errors or omissions [facility] History I have reviewed the patient's past medical history: Yes Medical History: Reports:: Gastroesophageal Reflux Disease(GERD), Hyperlipidemia, Hypertension Denies:: Cancer, Diabetes Mellitus Type 1, Diabetes Mellitus Type 2, Internal Pacemaker, MRSA, Seizures *Have you ever received a pneumonia vaccine?: No *Have you received a flu vaccine this season?: No Other Medical History: Reports: Arthritis. Denies: Blood Transfusion Reaction Other Surgeries: Yes: Other. No: Pacemaker Amputation: No Fractures: No - *Social History Smoking Status: Current every day smoker Tobacco Type: cigarettes # Packs/Day (cigarettes): 1 Alcohol Intake: never Alcohol Intake Frequency:: 0-2 drinks per day Substance Use Type: denies use *Occupational Status:: other Housing: house Household Members: spouse, significant other, family *Travel in the last 8 weeks: None Family Hx:: Heart Attack, Hyperlipidemia, Hypertension
== END ==
PROVIDERS: Visit Provider Clinical Nurse Specialist Family Health
DX: M46.1 Sacroiliitis, not elsewhere classified (principal)
CPT/HCPCS: 99212

== ENCOUNTER 2020-05-29 14:22 | Day surgery (SDC) | payer MEDICAID, SELFPAY ==
--- NOTE | 2020-05-29 14:35 | HMH.PMPROC ---
- Procedure Date: 05/29/20 Time: 14:35 Anesthesiologist:: Jeovany Rivas MD Complications:: None Pre-procedure Diagnosis:: Sacroiliitis Post-procedure Diagnosis:: Same Indications for Procedure:: Patient is a pleasant 39-year-old white male who we are treating for right-sided hip pain. He is tender over his right SI joint. Is positive Marcy's test on right side. Is positive SI joint compression test on the right side. He has a positive Sherrill test on the right side. We will plan on right SI joint injection under fluoroscopy today to help him with his pain symptoms. Procedure Details:: Right SI joint injection under fluoroscopy Informed consent was obtained and the risks and benefits of the procedure was going to the patient. Patient was taken to the procedure room. Patient was placed prone on the procedure table. The right hip was prepped using ChloraPrep. The skin and subcutaneous tissues were anesthetized using lidocaine. I placed a 22-gauge spinal needle into the inferior aspect of the right SI joint. Needle placement was confirmed with dye. After this we injected 5 mL bupivacaine 0.25% and Depo-Medrol 40 mg into the right SI joint. The patient tolerated the procedure well with no complication. Plan and Disposition:: We will follow-up with him in 2 weeks. Will reevaluate symptoms at that time. If he does get relief from this injection however it is not long-lasting he may be a candidate for SI joint stabilization.
[2020-05-29 14:37] VITALS: BP 141/80; PULSE 86; RESP 19; TEMP 36.7; O2SAT 96; BMI 39.9
[2020-05-29 14:54] VITALS: BP 138/78; BP 140/65; PULSE 85; RESP 18; O2SAT 98
[2020-05-29 15:00] VITALS: BP 134/93; PULSE 78; RESP 18; O2SAT 96
== END 2020-05-29 15:01 | disposition home or self-care (01) ==
LOC: SC.PAINP 14:23
PROVIDERS: PCP Nurse Practitioner Family; Visit Provider Anesthesiology
DX: M46.1 Sacroiliitis, not elsewhere classified (principal); I10 Essential (primary) hypertension; K21.9 Gastro-esophageal reflux disease without esophagitis; Z72.0 Tobacco use; E78.5 Hyperlipidemia, unspecified; F41.9 Anxiety disorder, unspecified; F32.9 Major depressive disorder, single episode, unspecified
CPT/HCPCS: 27096; G0260; J1040; Q9966

== ENCOUNTER → 2020-06-15 18:05 | Outpatient (CLI) | payer MEDICAID, SELFPAY ==
[2020-06-15 19:31] LABS: Coronavirus 19 IgG Antibody Negative (Negative); Coronavirus 19 IgM Antibody Negative (Negative)
== END ==
PROVIDERS: Visit Provider Nurse Practitioner Family
DX: Z01.89 Encounter for other specified special examinations (principal); G47.33 Obstructive sleep apnea (adult) (pediatric); I10 Essential (primary) hypertension; R40.0 Somnolence; R06.83 Snoring
CPT/HCPCS: 36415; 86328

== ENCOUNTER → 2020-06-15 20:07 | Outpatient (CLI) | payer MEDICAID, SELFPAY | PROVIDERS: PCP Nurse Practitioner Family; Visit Provider Nurse Practitioner Family | DX: G47.33 Obstructive sleep apnea (adult) (pediatric) (principal); G47.10 Hypersomnia, unspecified; R06.83 Snoring; I10 Essential (primary) hypertension | CPT/HCPCS: 95810 ==

== ENCOUNTER → 2020-06-22 11:15 | Outpatient (POV) | payer MEDICAID, SELFPAY ==
[2020-06-22 11:26] VITALS: BP 132/88; PULSE 79; RESP 18; O2SAT 98; BMI 41.8
--- NOTE | 2020-06-22 12:58 | P.CONS_ITS ---
[facility] Pain Management SOAP Note Subjective:: Patient is a pleasant 39-year-old white male who presents today to discuss potential corner lock procedure. Patient has right-sided hip pain. He has a positive Marcy's test on the right side, positive SI joint compression test on the right side, positive Sherrill test on the right side, positive distraction test on the right side. Patient had a SI joint injection to which he got significant relief however it did not last. Patient states he had 0 pain in his hip for quite some time however it was less than 3 months. Patient wants to discuss joint stabilization. ROS General: no recent weight change, no fever, no sleep disturbances Respiratory: no cough, no shortness of air, no recurring pulmonary infections Cardiovascular/Peripheral Vascular: No chest pain, No palpitations, no edema, no shortness of breath. Gastrointestinal: no new onset incontinence, normal bowel movements reported Genitourinary: no new onset incontinence Musculoskeletal: Right SI joint pain Psychiatric: normal mood/ affect Neurological: [denies new onset weakness in extremities], [denies new onset balance issues] Objective:: Physical Exam General: Alert and oriented x3, no acute distress, pleasant and cooperative, [on room air] Lungs: Resps E/U, Symmetrical chest expansion, Eyes: PERRL Musculoskeletal: Flexion and extension of lumbar spine somewhat guarded secondary to pain, deep tendon reflexes normal, strength in upper and lower extremities [5/5], antalgic gait noted Neurological: speech clear, 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 I will follow-up with him after this reassess his symptoms at that time he has been instructed to call office if he has any issues prior to his next appointment. Dr. Rivas has reviewed this note and agrees with this plan of care. This note was dictated using voice recognition software and may contain errors or omissions [facility] History I have reviewed the patient's past medical history: Yes Medical History: Reports:: Gastroesophageal Reflux Disease(GERD), Hyperlipidemia, Hypertension Denies:: Cancer, Diabetes Mellitus Type 1, Diabetes Mellitus Type 2, Internal Pacemaker, MRSA, Seizures *Have you ever received a pneumonia vaccine?: Yes *Have you received a flu vaccine this season?: Yes Other Medical History: Reports: Arthritis. Denies: Blood Transfusion Reaction Other Surgeries: Yes: Other (fatty tumor removed right calf). No: Pacemaker Amputation: No Fractures: No - *Social History Smoking Status: Current every day smoker Tobacco Type: cigarettes # Packs/Day (cigarettes): 2 Alcohol Intake: never Alcohol Intake Frequency:: 0-2 drinks per day Substance Use Type: denies use *Occupational Status:: other Housing: house Household Members: significant other *Travel in the last 8 weeks: None Family Hx:: Heart Attack, Hyperlipidemia, Hypertension
== END ==
PROVIDERS: PCP Nurse Practitioner Family; Visit Provider Clinical Nurse Specialist Family Health
DX: M46.1 Sacroiliitis, not elsewhere classified (principal)
CPT/HCPCS: 99212

== ENCOUNTER → 2020-07-06 15:12 | Outpatient (CLI) | payer MEDICAID, SELFPAY ==
[2020-07-06 15:37] LABS: Basophils # 0.1 K/mm3 (0-0.2); Basophils % 0.6 % (0.1-2.0); Eosinophils # 0.3 K/mm3 (0.0-0.4); Eosinophils % 3.8 % (0.1-12.0); Hematocrit 48.7 % (42.0-52.0); Hemoglobin 16.2 g/dL (14.1-18.0); Lymphocytes # 2.1 K/mm3 (0.7-4.5); Lymphocytes % 27.1 % (10-50); Mean Corpuscular HGB Conc 33.2 g/dL (31.8-35.4); Mean Corpuscular Hemoglobin 31.4 pg (27.0-31.2); Mean Corpuscular Volume 94.8 fl (80-94); Mean Platelet Volume 8.4 fl (7.4-10.4); Monocytes # 0.5 K/mm3 (0.1-1.0); Monocytes % 6.3 % (1.7-9.3); Neutrophils # 4.9 K/mm3 (1.8-7.8); Neutrophils % 62.2 % (37.0-80.0); Platelet Count 269 K/mm3 (142-424); Red Blood Count 5.14 M/mm3 (4.60-6.20); Red Cell Distribution Width 14.3 % (11.5-17.5); White Blood Count 7.9 K/mm3 (4.8-10.8)
[2020-07-06 16:25] LABS: Alanine Aminotransferase 71 U/L (12-78); Albumin Level 4.6 g/dl (3.5-5.0); Albumin/Globulin Ratio 1.8 (1.1-1.8); Alkaline Phosphatase 80 U/L (38-126); Aspartate Amino Transferase 43 U/L (17-59); Bilirubin,Total 0.4 mg/dl (0.2-1.3); Blood Urea Nitrogen 14 mg/dl (9-20); Calcium 9.6 mg/dl (8.4-10.2); Carbon Dioxide 30 mmol/L (22.0-30.0); Chloride 101 mmol/L (98-107); Chol/HDL Ratio 3.7 (1-3.5); Cholesterol 161 mg/dl (140-200); Estimated Glomerular Filt Rate 83 ml/min (>60); GFR (African American) 100 ML/MIN (>60); Globulin 2.5 g/dL (1.3-3.2); Glucose 118 mg/dl (74-100); HDL Cholesterol 44 mg/dl (40-60); Sodium 139 mmol/L (136-145); Total Protein,Serum 7.1 g/dl (6.3-8.2); Triglycerides 210 mg/dl (30-150); VLDL Cholesterol 42 mg/dL (0-40)
[2020-07-06 16:36] LABS: Direct LDL Cholesterol 80.33 mg/dL (100-129)
[2020-07-06 16:58] LABS: Thyroid Stimulating Hormone 1.24 uIU/mL (0.465-4.68)
== END ==
PROVIDERS: Visit Provider Nurse Practitioner Family
DX: E03.9 Hypothyroidism, unspecified (principal); R53.83 Other fatigue; K59.00 Constipation, unspecified
CPT/HCPCS: 36415; 80053; 80061; 84439; 84443; 85025

== ENCOUNTER → 2020-07-15 13:46 | Outpatient (CLI) | payer MEDICAID, SELFPAY ==
[2020-07-15 14:47] LABS: Basophils # 0.1 K/mm3 (0-0.2); Basophils % 0.9 % (0.1-2.0); Eosinophils # 0.3 K/mm3 (0.0-0.4); Eosinophils % 3.9 % (0.1-12.0); Hematocrit 46.5 % (42.0-52.0); Hemoglobin 14.8 g/dL (14.1-18.0); Lymphocytes # 2.2 K/mm3 (0.7-4.5); Lymphocytes % 24.3 % (10-50); Mean Corpuscular HGB Conc 31.8 g/dL (31.8-35.4); Mean Corpuscular Hemoglobin 30.5 pg (27.0-31.2); Mean Corpuscular Volume 96.1 fl (80-94); Mean Platelet Volume 8.7 fl (7.4-10.4); Monocytes # 0.7 K/mm3 (0.1-1.0); Monocytes % 7.4 % (1.7-9.3); Neutrophils # 5.6 K/mm3 (1.8-7.8); Neutrophils % 63.5 % (37.0-80.0); Platelet Count 277 K/mm3 (142-424); Red Blood Count 4.84 M/mm3 (4.60-6.20); Red Cell Distribution Width 13.7 % (11.5-17.5); White Blood Count 8.8 K/mm3 (4.8-10.8)
[2020-07-15 16:18] LABS: Chloride 101 mmol/L (98-107)
[2020-07-15 16:19] LABS: Potassium 4.7 mmoL/L (3.5-5.1); Sodium 137 mmol/L (136-145)
[2020-07-15 16:21] LABS: Blood Urea Nitrogen 12 mg/dl (9-20)
[2020-07-15 16:22] LABS: Anion Gap 12.7 mEq/L (5-15); Calcium 9.9 mg/dl (8.4-10.2); Carbon Dioxide 28 mmol/L (22.0-30.0); Estimated Glomerular Filt Rate 93 ml/min (>60); GFR (African American) 113 ML/MIN (>60); Glucose 98 mg/dl (74-100)
[2020-07-15 17:10] LABS: Coronavirus 19 IgG Antibody Negative (Negative); Coronavirus 19 IgM Antibody Negative (Negative)
[2020-07-25 21:52] LABS: Miscellaneous Test SEE LABCORP REPORT
== END ==
PROVIDERS: Specialist; Visit Provider Anesthesiology
DX: Z01.818 Encounter for other preprocedural examination (principal); M53.3 Sacrococcygeal disorders, not elsewhere classified
CPT/HCPCS: 36415; 80048; 85025; 86328

== ENCOUNTER 2020-07-17 10:37 | Day surgery (SDC) | payer MEDICAID, SELFPAY ==
[2020-07-14 11:59] VITALS: BMI 41.7
[2020-07-17] VITALS (11 sets, daily range): BP systolic 103–169; BP diastolic 51–97; PULSE 66–80; RESP 14–18; TEMP 36.4–36.7; O2SAT 94–99
--- NOTE | 2020-07-17 13:05 | HMH.ANESCL ---
[facility] Anesthesia Checklist - Structural Data Admitted From: Home Planned Operative Procedure/s: r si joint fusion Consent for Planned Operative Procedure(s) Verified: Yes - Additional verifications Anesthesia Reactions: No Hx Blood Transfusions: No Blood Transfusion Reaction: No - Airway Assessment C-Spine Mobility Assessed: Yes TMJ Mobility Assessed: Yes Dentition: Edentulous - Neurological Assessment Level of Consciousness: Awake, Alert, Appropriate - Anesthesia Plan Anesthesia Risk discussed: Yes Anesthesia Plan: Verified Anesthesia Type: General [facility] History I have reviewed the patient's past medical history: Yes Medical History: Reports:: Gastroesophageal Reflux Disease(GERD), Hyperlipidemia, Hypertension Denies:: Cancer, Diabetes Mellitus Type 1, Diabetes Mellitus Type 2, Internal Pacemaker, MRSA, Seizures *Have you ever received a pneumonia vaccine?: No *Have you received a flu vaccine this season?: No Other Medical History: Reports: Arthritis, Other (jose roberto). Denies: Blood Transfusion Reaction Anesthesia experience/problems:: none Other Surgeries: Yes: Other (fatty tumor removed right calf). No: Pacemaker Amputation: No Fractures: No - *Social History Last grade of school completed: GED Smoking Status: Current every day smoker Tobacco Type: cigarettes # Packs/Day (cigarettes): 1 Alcohol Intake: never Alcohol Intake Frequency:: 0-2 drinks per day Substance Use Type: denies use *Occupational Status:: disabled Housing: house Household Members: spouse, other *Travel in the last 8 weeks: None Family Hx:: Heart Attack, Hyperlipidemia, Hypertension
--- NOTE | 2020-07-17 13:59 | P.PN_ITS ---
[facility] Anesthesia Record Part I Intake, IV Amount: 1,500 Estimated blood loss (mL): 0 Urine output (mL): 0 Blood Pressure: 103/68 SaO2: 94 Pulse Rate: 73 Respiratory Rate: 14 Temperature: 97.5 F Patient is:: Awake, Stable Stable to PACU at:: 13:55
--- NOTE | 2020-07-17 14:12 | HMH.OPNOTE ---
Date of procedure: 07/17/20 Pre-op Diagnosis:: Sacroiliitis Post-op Diagnosis:: Same Procedure performed:: Right SI joint stabilization Surgeon:: Jeovany Rivas MD WELLNESS INSTRUCTOR:: Jeremy Johnson Anesthesia: GETA Estimated blood loss (mL): 10 Clinical Note:: Patient is a pleasant 39-year-old white male who we are treating for sacroiliitis. He is done well with SI joint injections however they have not been long-lasting. They have given him 80 to 90% relief in his pain symptoms. He does have a positive Marcy's test on right side. Is positive SI joint compression test of the right side. He has a positive Sherirll test on right side. He has a positive distraction test on the right side. We will do a right SI joint stabilization today to help him with his pain symptoms. This will be with the Echo[employer] system. Operative findings:: None Operative note:: Informed consent was obtained and the risk and benefits of the procedure was explained to the patient. Patient was taken to the operating room placed prone on the procedure table. Patient was prepped and draped in sterile fashion. A lateral view of the sacrum with C-arm was taken to make sure it was out of anteversion. We then did an oblique view of the right sacroiliac joint. We lined up the anterior and posterior sides of the joint to achieve a [place] . A line was drawn on the skin with the SI joint. The superior and inferior aspect of the joint were anesthetized using lidocaine. The superior and inferior aspect of the joint were marked off. 1 cm medial and 1 cm superiorly into the upper quadrant and 1 cm medial and 1 cm distal a 1 1/2 cm longitudinal incisions were made through the skin and subcutaneous tissues. Guidepins were then placed superior and inferior at a 90 degree angle to each other under C-arm guidance through the incision was made into the superior third and inferior third of the SI joint. Lateral C-arm view was then taken to check the depth of the pins into the SI joint. On the lateral view the joint finder was placed over the guidepin into the appropriate position. The working cannula retractor was then placed over the joint finder into the SI joint into the appropriate position and depth. The joint finder and guidepin were removed. The SI joint was drilled to remove cartilage and to get into the subchondral bone of the sacrum and ilium. The broach was then used to prepare a triangular groove into both the sacrum and ilium for insertion of stabilization grafts. A collagen spine was then placed into the prepared space and the stabilization graft was placed. This was done both superiorly inferiorly into the SI joint. The cannulated retractor was removed. The incisions were then closed with 2-0 Vicryl followed by 4-0 nylon. Dressings were placed and the patient was taken recovery in stable condition. Patient tolerated the procedure well with no complications. We will give the patient [place] 5 mg 1 tablet every 4-6 hours for postoperative pain symptoms. We will also give him Bactrim DS 1 tablet twice a day for 1 week. Condition: stable Disposition: PACU Complications:: None
--- NOTE | 2020-07-20 08:28 | P.PN_ITS ---
[facility] Anesthesia Record Part II Discharge Time: 14:25 Destination: [facility] PACU nurse assessment reviewed?: Yes Patient Condition:: Good Anesthesia Complications:: None Swallowing reflex intact?: Yes Cyanosis?: No Blood Pressure: 141/97 Pulse Rate: 70 Temperature: 97.7 F Mental Status: Alert & Oriented Pain level:: 4 Nausea and/or vomitting:: None Intake, IV Amount: 1,500
[2020-07-20 08:29] VITALS: BP 141/97; PULSE 70; TEMP 36.5
== END 2020-07-17 15:29 | disposition home or self-care (01) ==
LOC: OR 10:39
PROVIDERS: PCP Nurse Practitioner Family; Visit Provider Anesthesiology
PROC: (CPT 27280; principal; 2020-07-17 12:45)
DX: M46.1 Sacroiliitis, not elsewhere classified (principal); K21.9 Gastro-esophageal reflux disease without esophagitis; E78.5 Hyperlipidemia, unspecified; I10 Essential (primary) hypertension; M19.90 Unspecified osteoarthritis, unspecified site; G47.33 Obstructive sleep apnea (adult) (pediatric); Z72.0 Tobacco use; Z79.899 Other long term (current) drug therapy
CPT/HCPCS: 27280; 96374; C1713; J2405; J2710; J3370

== ENCOUNTER 2020-07-17 21:08 | Emergency (ER) | payer MEDICAID, SELFPAY ==
[2020-07-17 21:20] VITALS: BP 121/74; PULSE 102; RESP 24; TEMP 36.8; O2SAT 99; BMI 41.8
--- NOTE | 2020-07-17 21:25 | ECG_ITS ---
APPROVED REPORT Exam: Resting ECG HR:87 bpm ECG Measurements Heart Rate 87 AXES WI 168 P 41 QRSd 90 QRS 39 QT 388 T 42 QTc 466 Conclusion Normal sinus rhythm Normal ECG Electronically signed by : Leonardo Delgado, 07/18/2020 06:55:09
--- NOTE | 2020-07-17 21:31 | XR_ITS ---
PROCEDURE: XR CHEST 2V CLINICAL HISTORY: Chest tighting Chest tightness COMPARISON: No exams were available for comparison FINDINGS: The cardiomediastinal silhouette and pulmonary vascularity are within normal limits. The lungs are clear without infiltrates, suspicious nodules, or pleural effusions. No acute bony abnormalities. IMPRESSION: No acute findings. Dictated by: Elian Klein MD 07/17/2020 23:59 Elian Klein MD in OV 07/17/2020 23:59
[2020-07-17 21:48] VITALS: BP 119/67; PULSE 85; RESP 18; O2SAT 94
[2020-07-17 21:52] LABS: Basophils % 0.1 % (0.1-2.0); Eosinophils % 0.2 % (0.1-12.0); Hematocrit 44.1 % (42.0-52.0); Hemoglobin 14.5 g/dL (14.1-18.0); Lymphocytes # 0.8 K/mm3 (0.7-4.5); Lymphocytes % 5.5 % (10-50); Mean Corpuscular HGB Conc 32.9 g/dL (31.8-35.4); Mean Corpuscular Hemoglobin 30.9 pg (27.0-31.2); Mean Corpuscular Volume 93.9 fl (80-94); Mean Platelet Volume 8.3 fl (7.4-10.4); Monocytes # 0.2 K/mm3 (0.1-1.0); Monocytes % 1.2 % (1.7-9.3); Neutrophils # 13.6 K/mm3 (1.8-7.8); Platelet Count 276 K/mm3 (142-424); Red Blood Count 4.69 M/mm3 (4.60-6.20); Red Cell Distribution Width 14.5 % (11.5-17.5); White Blood Count 14.6 K/mm3 (4.8-10.8)
[2020-07-17 21:53] LABS: MANUAL DIFFERENTIAL MANUAL DIFFERENTIAL (MANUAL DIFF)
[2020-07-17 21:55] LABS: Chloride 98 mmol/L (98-107); Potassium 3.8 mmoL/L (3.5-5.1); Sodium 133 mmol/L (136-145)
[2020-07-17 21:58] LABS: Alanine Aminotransferase 92 U/L (12-78); Albumin Level 4.5 g/dl (3.5-5.0); Alkaline Phosphatase 55 U/L (38-126); Anion Gap 14.8 mEq/L (5-15); Aspartate Amino Transferase 63 U/L (17-59); Bilirubin,Direct 0.1 mg/dl (0.0-0.4); Bilirubin,Indirect 0.3 mg/dL (0.0-0.9); Bilirubin,Total 0.4 mg/dl (0.2-1.3); Bilirubin,Unconjugated 0.2 mg/dL (0.0-1.1); Blood Urea Nitrogen 12 mg/dl (9-20); Calcium 9.2 mg/dl (8.4-10.2); Carbon Dioxide 24 mmol/L (22.0-30.0); Creatinine Clearance Estimated 116 mL/min (50-200); Estimated Glomerular Filt Rate 93 ml/min (>60); GFR (African American) 113 ML/MIN (>60); Glucose 190 mg/dl (74-100)
[2020-07-17 22:10] LABS: Troponin I < 0.01 ng/ml (0.00-0.034)
[2020-07-17 22:12] LABS: Lymphocytes % 9 % (10-50); Monocytes % 2 % (2-9); Neutrophils % 82 % (42-76); Platelet Estimate Normal; RBC Morphology Normal; Total Cells Counted 100
--- NOTE | 2020-07-17 22:19 | HMH.EDEXTP ---
ED Disposition Clinical Impression: Adverse drug reaction, Acute anxiety Disposition: Home, Self-Care Condition on Discharge: Good Instructions: DI for Adverse Drug Reaction -- Other Referrals: Joe Joseph APRN [Primary Care Provider] - - Critical Care Critical Care Time: No Attestation: On 07/17/20, the high probability of a clinically significant, sudden or life threatening deterioration of the following system(s) required my full and direct attention, intervention and personal management. The time I documented below is in addition to time spent performing reported procedures but includes the following listed in this critical care notation. Medical Decision Making - Medical Records Medical records reviewed: Yes: I reviewed the patient's medical records. - [place] Inquiry Pt receiving controlled substance: No Vital Signs: 07/17/20 21:20 07/17/20 21:48 Temperature 98.3 F Temperature Source Oral Pulse Rate [Right] 102 H 85 Respiratory Rate 24 18 Blood Pressure [Right Arm] 121/74 119/67 Blood Pressure Mean [Right Arm] 89 84 Blood Pressure Source [Right Arm] Automatic Cuff Blood Pressure Position [Right Arm] Supine 02 Sat by Pulse Oximetry 99 94 L Oxygen Delivery Method Room Air - Lab Data Lab results reviewed: Yes: I reviewed the patient's lab results. Lab Results 07/17/20 21:40: WBC 14.6 H D, RBC 4.69, Hgb 14.5, Hct 44.1, MCV 93.9, MCH 30.9, MCHC 32.9, RDW 14.5, Plt Count 276, MPV 8.3, Neut % (Auto) 93.0 H, Lymph % (Auto) 5.5 L, Mcdowell % (Auto) 1.2 L, Eos % (Auto) 0.2, Baso % (Auto) 0.1, Neut # (Auto) 13.6 H, Lymph # (Auto) 0.8, Mcdowell # (Auto) 0.2, Eos # (Auto) 0.0, Baso # (Auto) 0.0, Total Counted 100, Neutrophils % (Manual) 82 H, Band Neutrophils % 7.0, Lymphocytes % (Manual) 9 L, Monocytes % (Manual) 2, Platelet Estimate Normal, RBC Morphology Normal 07/17/20 21:40: Sodium 133 L, Potassium 3.8, Chloride 98, Carbon Dioxide 24, Anion Gap 14.8, BUN 12, Creatinine 0.90, Estimated Creat Clear 116, Estimated GFR 93, Est GFR ( Amer) 113, Glucose 190 H, Calcium 9.2, Total Bilirubin 0.4, Direct Bilirubin 0.1, Conjugated Bilirubin 0.0, Indirect Bilirubin 0.3, Unconjugated Bilirubin 0.2, AST 63 H, ALT 92 H, Alkaline Phosphatase 55, Troponin I < 0.01, Total Protein 7.0, Albumin 4.5 Result diagrams: 07/17/20 21:40 07/17/20 21:40 Orders (Tests/Meds): ED MEDICATIONS Generic Name Dose Route Start Last Admin Trade Name Freq PRN Reason Stop Dose Admin Sodium Chloride 1,000 mls @ 999 mls/hr 07/17/20 21:45 07/17/20 21:47 Sod Chlor 0.9% 1000ml Bag IV 07/17/20 22:45 999 mls/hr .Q1H1M ANA LAURA Administration Discontinued Medications Generic Name Dose Route Start Last Admin Trade Name Freq PRN Reason Stop Dose Admin Lorazepam 1 mg 07/17/20 22:10 07/17/20 22:12 Lorazepam 2mg/Ml Vial IV 07/17/20 22:11 1 mg ONCE ONE Administration Methylprednisolone Sodium Succinate 125 mg 07/17/20 21:43 07/17/20 21:47 Methylprednisolone Sod Succ 125mg Vial IV 07/17/20 21:44 125 mg ONCE ONE Administration Ondansetron HCl 4 mg 07/17/20 21:43 07/17/20 21:47 Ondansetron 4mg/2ml Vial IV 07/17/20 21:44 4 mg ONCE ONE Administration ORDERS Category Date Time Status XR chest 2V Stat Exams 07/17/20 21:31 Ordered Troponin I Q3H Lab 07/18/20 00:45 Ordered Troponin I Q3H Lab 07/18/20 03:45 Ordered - Radiology Data #1 Image(s): Chest Image Reviewed: Yes I reviewed the patient's radiology results Preliminary Findings: Normal/NAD - ECG Data Tracing #2 I reviewed this ECG and interpreted as documented below: Normal Sinus Rhythm: Yes Extremity Problem HPI - General Chief complaint: Extremity Problem,Nontraumatic Stated complaint: Surg, Numbness in arms1 Time Seen by Provider: 07/17/20 22:00 Mode of Arrival: Wheelchair Source of Information: Patient Limitations: No Limitations Description of Symptoms (Recalled from ER Triage Doc. by RN): Pt had S.I.
[2020-07-17 23:16] VITALS: BP 113/73; PULSE 79; RESP 16; TEMP 36.7; O2SAT 92
== END 2020-07-17 23:20 | disposition home or self-care (01) ==
PROVIDERS: Emergency Provider Family Medicine; PCP Nurse Practitioner Family
DX: R20.0 Anesthesia of skin (principal); T38.0X5A Adverse effect of glucocorticoids and synthetic analogues, initial encounter; T39.95XA Adverse effect of unspecified nonopioid analgesic, antipyretic and antirheumatic, initial encounter; Y92.019 Unspecified place in single-family (private) house as the place of occurrence of the external cause; I10 Essential (primary) hypertension; E78.5 Hyperlipidemia, unspecified; K21.9 Gastro-esophageal reflux disease without esophagitis; F41.9 Anxiety disorder, unspecified; F17.210 Nicotine dependence, cigarettes, uncomplicated; Z79.899 Other long term (current) drug therapy
CPT/HCPCS: 71046; 80048; 80076; 84484; 85007; 85025; 93005; 96375; 99283; J2405

== ENCOUNTER → 2020-08-03 13:18 | Outpatient (POV) | payer MEDICAID, SELFPAY ==
--- NOTE | 2020-08-03 13:59 | HMH.PAINSOAP ---
[facility] Pain Management SOAP Note Subjective:: Patient is a pleasant 39-year-old white male who presents today for follow-up after right SI joint stabilization. Patient is doing well rating his pain a 2 out of 10. Patient is also in need of diclofenac and rare Lyrica refills. [facility] #[id number] reviewed and appropriate. Patient is on Lyrica 75 mg 1 p.o. twice daily. He denies side effects to this. Overall doing well. Patient is well-healed no sign symptoms of infection his stitches have been removed. ROS General: no recent weight change, no fever, no sleep disturbances Respiratory: no cough, no shortness of air, no recurring pulmonary infections Cardiovascular/Peripheral Vascular: No chest pain, No palpitations, no edema, no shortness of breath. Gastrointestinal: no new onset incontinence, normal bowel movements reported Genitourinary: no new onset incontinence Musculoskeletal: SI joint pain at times Psychiatric: normal mood/ affect Neurological: [denies new onset weakness in extremities], [denies new onset balance issues] Objective:: Physical Exam General: Alert and oriented x3, no acute distress, pleasant and cooperative, [on room air] Lungs: Resps E/U, Symmetrical chest expansion, Eyes: PERRL Musculoskeletal: Flexion and extension of lumbar spine somewhat guarded secondary to pain, deep tendon reflexes normal, strength in upper and lower extremities [5/5], [abnormal gait noted] Neurological: speech clear, emt i/85 equal, no gross sensory deficits Assessment:: Sacroiliitis, status post right SI joint stabilization Plan:: We will see the patient back in 1 month reassess his symptoms at that time we will continue his diclofenac and Lyrica. Patient's been instructed to call the office if he has any issues prior to his next appointment. Dr. Rivas has reviewed this note and agrees with this plan of care. This note was dictated using voice recognition software and may contain errors or omissions [facility] History I have reviewed the patient's past medical history: Yes Medical History: Reports:: Gastroesophageal Reflux Disease(GERD), Hyperlipidemia, Hypertension Denies:: Cancer, Diabetes Mellitus Type 1, Diabetes Mellitus Type 2, Internal Pacemaker, MRSA, Seizures *Have you ever received a pneumonia vaccine?: No *Have you received a flu vaccine this season?: No Other Medical History: Reports: Arthritis, Other (jose roberto). Denies: Blood Transfusion Reaction Other Surgeries: Yes: Other (fatty tumor removed right calf). No: Pacemaker Amputation: No Fractures: No - *Social History Smoking Status: Current every day smoker Tobacco Type: cigarettes # Packs/Day (cigarettes): 2 Alcohol Intake: never Alcohol Intake Frequency:: 0-2 drinks per day Substance Use Type: denies use *Occupational Status:: unemployed Housing: house Household Members: spouse, other *Travel in the last 8 weeks: None Family Hx:: Heart Attack, Hyperlipidemia, Hypertension
[2020-08-03 14:11] VITALS: BP 133/88; PULSE 74; RESP 18; TEMP 36.6; O2SAT 98; BMI 41.8
== END ==
PROVIDERS: PCP Nurse Practitioner Family; Visit Provider Clinical Nurse Specialist Family Health
DX: M46.1 Sacroiliitis, not elsewhere classified (principal); Z98.890 Other specified postprocedural states
CPT/HCPCS: 99212

== ENCOUNTER → 2020-08-31 11:47 | Outpatient (POV) | payer MEDICAID, SELFPAY ==
[2020-08-31 12:07] VITALS: BP 122/77; PULSE 68; RESP 18; O2SAT 98; BMI 41.8
--- NOTE | 2020-08-31 12:15 | HMH.PAINSOAP ---
[facility] Pain Management SOAP Note Subjective:: Patient is a pleasant 39-year-old white male who presents today for follow-up after right SI joint stabilization. Patient rates his pain a 2 out of 10. Patient is doing very well patient currently on diclofenac and Lyrica. He denies side effects to this. Patient states that the only pain that he has is in his left SI joint. He has had SI joint injections with good relief however it was not long-lasting. He would like to repeat his SI joint stabilization on the left side. He does have a positive SI joint compression test, distraction test, Marcy's test, Sherrill test on the left side. ROS General: no recent weight change, no fever, no sleep disturbances Respiratory: no cough, no shortness of air, no recurring pulmonary infections Cardiovascular/Peripheral Vascular: No chest pain, No palpitations, no edema, no shortness of breath. Gastrointestinal: no new onset incontinence, normal bowel movements reported Genitourinary: no new onset incontinence Musculoskeletal: SI joint pain Psychiatric: normal mood/ affect Neurological: [denies new onset weakness in extremities], [denies new onset balance issues] Objective:: Physical Exam General: Alert and oriented x3, no acute distress, pleasant and cooperative, [on room air] Lungs: Resps E/U, Symmetrical chest expansion, Eyes: PERRL Musculoskeletal: Flexion and extension of lumbar spine somewhat guarded secondary to pain, deep tendon reflexes normal, strength in upper and lower extremities [5/5], [abnormal gait noted] Neurological: speech clear, tablet machine operator equal, no gross sensory deficits Assessment:: Sacroiliitis Plan:: When it is appropriate we will set him up for a left SI joint stabilization. Patient has failed 6 months of conservative therapy including medications and anti-inflammatories. I will follow-up with him after his SI joint stabilization reassess his symptoms at that time he has been instructed to call the office if he has any issues prior to his next appointment Dr. Rivas has reviewed this note and agrees with this plan of care. This note was dictated using voice recognition software and may contain errors or omissions [facility] History I have reviewed the patient's past medical history: Yes Medical History: Reports:: Gastroesophageal Reflux Disease(GERD), Hyperlipidemia, Hypertension Denies:: Cancer, Diabetes Mellitus Type 1, Diabetes Mellitus Type 2, Internal Pacemaker, MRSA, Seizures *Have you ever received a pneumonia vaccine?: Yes *Have you received a flu vaccine this season?: Yes Other Medical History: Reports: Arthritis, Other (jose roberto). Denies: Blood Transfusion Reaction Other Surgeries: Yes: Other (fatty tumor removed right calf). No: Pacemaker Amputation: No Fractures: No - *Social History Smoking Status: Current every day smoker Tobacco Type: cigarettes # Packs/Day (cigarettes): 2 Alcohol Intake: never Alcohol Intake Frequency:: 0-2 drinks per day Substance Use Type: denies use *Occupational Status:: other Housing: house Household Members: spouse, other *Travel in the last 8 weeks: None Family Hx:: Heart Attack, Hyperlipidemia, Hypertension
== END ==
PROVIDERS: PCP Nurse Practitioner Family; Visit Provider Clinical Nurse Specialist Family Health
DX: M46.1 Sacroiliitis, not elsewhere classified (principal)
CPT/HCPCS: 99212

== ENCOUNTER → 2020-10-12 14:09 | Outpatient (CLI) | payer MEDICAID, SELFPAY ==
[2020-10-12 14:24] LABS: Basophils # 0.1 K/mm3 (0-0.2); Basophils % 0.7 % (0.1-2.0); Eosinophils # 0.3 K/mm3 (0.0-0.4); Eosinophils % 3.2 % (0.1-12.0); Hemoglobin 15.2 g/dL (14.1-18.0); Lymphocytes # 2.1 K/mm3 (0.7-4.5); Lymphocytes % 26.2 % (10-50); Mean Corpuscular HGB Conc 32.4 g/dL (31.8-35.4); Mean Corpuscular Hemoglobin 30.7 pg (27.0-31.2); Mean Corpuscular Volume 94.6 fl (80-94); Mean Platelet Volume 8.1 fl (7.4-10.4); Monocytes # 0.5 K/mm3 (0.1-1.0); Monocytes % 6.9 % (1.7-9.3); Platelet Count 252 K/mm3 (142-424); Red Blood Count 4.96 M/mm3 (4.60-6.20); Red Cell Distribution Width 13.9 % (11.5-17.5); White Blood Count 7.9 K/mm3 (4.8-10.8)
[2020-10-12 14:44] LABS: Chloride 102 mmol/L (98-107); Potassium 4.2 mmoL/L (3.5-5.1); Sodium 138 mmol/L (136-145)
[2020-10-12 14:47] LABS: Anion Gap 9.2 mEq/L (5-15); Blood Urea Nitrogen 15 mg/dl (9-20); Calcium 9.7 mg/dl (8.4-10.2); Carbon Dioxide 31 mmol/L (22.0-30.0); Estimated Glomerular Filt Rate 83 ml/min (>60); GFR (African American) 100 ML/MIN (>60); Glucose 124 mg/dl (74-100)
[2020-10-12 15:11] LABS: Coronavirus 19 IgG Antibody Negative (Negative); Coronavirus 19 IgM Antibody Negative (Negative)
== END ==
PROVIDERS: Visit Provider Anesthesiology
DX: Z01.812 Encounter for preprocedural laboratory examination (principal); Z20.822 Contact with and (suspected) exposure to COVID-19; M53.3 Sacrococcygeal disorders, not elsewhere classified
CPT/HCPCS: 36415; 80048; 85025; 86328

== ENCOUNTER 2020-10-14 08:09 | Day surgery (SDC) | payer MEDICAID, SELFPAY ==
[2020-10-12 11:29] VITALS: BMI 41.3
[2020-10-14] VITALS (14 sets, daily range): BP systolic 114–144; BP diastolic 50–96; PULSE 56–82; RESP 16–18; TEMP 36.1–36.2; O2SAT 94–100
--- NOTE | 2020-10-14 10:21 | HMH.ANESCL ---
[facility] Anesthesia Checklist - Patient Identification Patient Identification: Arm Band - Structural Data Admitted From: Home Planned Operative Procedure/s: Sacroiliac Joint Stabilization under Fluoroscopy Consent for Planned Operative Procedure(s) Verified: Yes Verified Documents: Surgical Consent, History and Physical - NPO Status Verified Time NPO: 00:00 - Additional verifications Anesthesia Reactions: No Hx Blood Transfusions: No Blood Transfusion Reaction: No - Airway Assessment C-Spine Mobility Assessed: Yes (mp2) TMJ Mobility Assessed: Yes Dentition: Good Dentition - Neurological Assessment Level of Consciousness: Awake, Alert - Anesthesia Plan Anesthesia Risk discussed: Yes Anesthesia Plan: Verified ASA Class: III Anesthesia Type: General [facility] History I have reviewed the patient's past medical history: Yes Medical History: Reports:: Gastroesophageal Reflux Disease(GERD), Hyperlipidemia, Hypertension Denies:: Cancer, Diabetes Mellitus Type 1, Diabetes Mellitus Type 2, Internal Pacemaker, MRSA, Seizures *Have you ever received a pneumonia vaccine?: No *Have you received a flu vaccine this season?: No Other Medical History: Reports: Arthritis, Other (jose roberto). Denies: Blood Transfusion Reaction Anesthesia experience/problems:: nac Other Surgeries: Yes: Other (fatty tumor removed right calf). No: Pacemaker Amputation: No Fractures: No - *Social History Last grade of school completed: High school graduate Smoking Status: Current every day smoker Tobacco Type: cigarettes # Packs/Day (cigarettes): 2 Alcohol Intake: never Alcohol Intake Frequency:: 0-2 drinks per day Substance Use Type: denies use *Occupational Status:: unemployed Housing: house Household Members: spouse, other *Travel in the last 8 weeks: None Family Hx:: Heart Attack, Hyperlipidemia, Hypertension
--- NOTE | 2020-10-14 11:06 | P.PN_ITS ---
[facility] Anesthesia Record Part I Intake, IV Amount: 800 Estimated blood loss (mL): 5 Urine output (mL): 0 Blood Pressure: 137/96 SaO2: 98 Pulse Rate: 76 Respiratory Rate: 16 Temperature: 97.1 F Patient is:: Drowsy, Stable Stable to PACU at:: 11:00
--- NOTE | 2020-10-14 11:29 | P.OP_ITS ---
Date of procedure: 10/14/20 Pre-op Diagnosis:: Chronic sacroiliitis Post-op Diagnosis:: Same Procedure performed:: Left SI joint stabilization with cornerloc Surgeon:: Jeovany Rivas MD ORACLE E BUSINESS DEVELOPER:: Otilio Stokes Anesthesia: MAC Estimated blood loss (mL): 20 Clinical Note:: Patient is a pleasant 39-year-old white male who we are treating for chronic sacroiliitis. He is status post right SI joint stabilization. He only has pain now on his left side. He is failed all conservative treatments including injections, physical therapy and oral medications. We will plan on left SI joint stabilization with the Cornerloc system. Operative findings:: None Operative note:: Informed consent was obtained and the risk and benefits of the procedure was explained to the patient. Patient was taken to the operating room placed prone on the procedure table. Patient was prepped and draped in sterile fashion. A lateral view of the sacrum with C-arm was taken to make sure it was out of anteversion. We then did an oblique view of the left sacroiliac joint. We lined up the anterior and posterior sides of the joint to achieve a [place] . A line was drawn on the skin with the SI joint. The superior and inferior aspect of the joint were anesthetized using lidocaine. The superior and inferior aspect of the joint were marked off. 1 cm medial and 1 cm superiorly into the upper quadrant and 1 cm medial and 1 cm distal a 1 1/2 cm longitudinal incisions were made through the skin and subcutaneous tissues. Guidepins were then placed superior and inferior at a 90 degree angle to each other under C-arm guidance through the incision was made into the superior third and inferior third of the SI joint. Lateral C-arm view was then taken to check the depth of the pins into the SI joint. On the lateral view the joint finder was placed over the guidepin into the appropriate position. The working cannula retractor was then placed over the joint finder into the SI joint into the appropriate position and depth. The joint finder and guidepin were removed. The SI joint was drilled to remove cartilage and to get into the subchondral bone of the sacrum and ilium. The broach was then used to prepare a triangular groove into both the sacrum and ilium for insertion of stabilization grafts. A collagen spine was then placed into the prepared space and the stabilization graft was placed. This was done both superiorly inferiorly into the SI joint. The cannulated retractor was removed. The incisions were then closed with 2-0 Vicryl followed by apples and 4-0 nylon. Dressings were placed and the patient was taken recovery in stable condition. Patient tolerated the procedure well with no complications. Plan and disposition: We will give the patient [place] 5 mg 1 tablet every 4 to 6 hours for postoperative pain. We will give him 20 tablets. We will also give him Bactrim DS 1 tablet twice a day for 5 days. We will follow-up with him in 2 weeks. Condition: stable Disposition: PACU Complications:: None
--- NOTE | 2020-10-14 12:45 | SUR.PHASEII ---
PT TOLERATED PHENERGAN WELL. REPORTS NAUSEA IS BETTER.
--- NOTE | 2020-10-14 15:40 | P.PN_ITS ---
[facility] Anesthesia Record Part II Discharge Time: 11:40 Destination: Surgical Day Care (OP Surgery) PACU nurse assessment reviewed?: Yes Patient Condition:: Good Anesthesia Complications:: None Swallowing reflex intact?: Yes Cyanosis?: No Blood Pressure: 144/76 Pulse Rate: 65 Temperature: 97.0 F Mental Status: Alert & Oriented Pain level:: 1 Nausea and/or vomitting:: None Intake, IV Amount: 0
== END 2020-10-14 12:46 | disposition home or self-care (01) ==
LOC: OR 08:10
PROVIDERS: PCP Nurse Practitioner Family; Visit Provider Anesthesiology
PROC: (CPT 27279; principal; 2020-10-14 09:30)
DX: M46.1 Sacroiliitis, not elsewhere classified (principal)
CPT/HCPCS: 27279; 96374; C1713; J1040; J2405; J2710; J3370

== ENCOUNTER → 2020-10-29 11:13 | Outpatient (POV) | payer MEDICAID, SELFPAY ==
--- NOTE | 2020-10-29 12:24 | HMH.PAINSOAP ---
[facility] Pain Management SOAP Note Subjective:: Patient is a 39-year-old white male who presents today for follow-up after a left SI stabilization procedure. He has had his right side stabilized as well. Patient did very well following his right SI stabilization. He is saying he is having some worsening pain on the left side in comparison to his previous right side. He says that he is having more incisional pain and it feels as though he is having some swelling and inflammation in the area in comparison to his previous surgery. He does rate his pain a 4 out of 10. He says he is sore with standing and walking. He is around 2 weeks postoperative. Does report to be having better pain to his SI joint, however. Review of Systems General: No recent weight changes, no fever, no sleep disturbances Respiratory: No cough, no shortness of air, no recurring pulmonary infections Cardiovascular/peripheral vascular: No chest pain, no palpitations, no edema, no shortness of breath Gastrointestinal: No new onset incontinence, normal bowel movements reported Genitourinary: No new onset incontinence Musculoskeletal: Incisional pain, intermittent left low back pain Psychiatric: Normal mood/affect Neurological: [Denies weakness in extremities], [denies balance issues] Objective:: Physical exam General: Alert and oriented x3, no acute distress, pleasant and cooperative, [on room air] Lungs: Respirations even and unlabored, symmetrical chest expansion Eyes: PERRL Musculoskeletal: Flexion and extension of lumbar spine somewhat guarded secondary to pain, deep tendon reflexes normal, strength in upper and lower extremities [5/5], [abnormal gait noted] Neurological: Speech clear, submarine element coordinator equal, no gross sensory deficit Integumentary: Incision well approximated, no redness, no drainage, no edema noted to site. Tenderness with palpation to incisional area Assessment:: Chronic sacroiliitis Plan:: Overall, the patient is doing better since having his SI stabilization on the right side. He and I discussed a compounding cream to apply topically to the area to see if this helps with his incisional pain. We will order him compounding cream and see him back in the clinic in 2 weeks to reevaluate his symptoms. The patient has been instructed to contact clinic if he has any concerns before his next appointment. The patient and I specifically discussed risk factors for COVID19. These risks include, but are not limited to age greater than 60, heart or lung disease, diabetes, immunosuppression, and travel. We also discussed NSAIDs may worsen COVID19 infection or symptoms. Patient should not use NSAIDs to treat COVID19 signs or symptoms. Patient was also informed that any type of corticosteroid of any form (oral or injection) will decrease the patient's immune system response and may increase the likelihood of COVID19 infection and symptoms[address] Dr. Rivas has reviewed this note and agrees with this plan of care. This note was dictated using voice recognition software and make contain errors or omissions. [facility] History I have reviewed the patient's past medical history: Yes Medical History: Reports:: Gastroesophageal Reflux Disease(GERD), Hyperlipidemia, Hypertension Denies:: Cancer, Diabetes Mellitus Type 1, Diabetes Mellitus Type 2, Internal Pacemaker, MRSA, Seizures *Have you ever received a pneumonia vaccine?: No *Have you received a flu vaccine this season?: No Other Medical History: Reports: Arthritis, Other (jose roberto). Denies: Blood Transfusion Reaction Other Surgeries: Yes: Other (fatty tumor removed right calf). No: Pacemaker Amputation: No Fractures: No - *Social History Smoking Status: Current every day smoker Tobacco Type: cigarettes # Packs/Day (cigarettes): 2 Alcohol Intake: never Alcohol Intake Frequency:: 0-2 drinks per day Substance Use Type: denies use *Occupational Status:: unemployed Housing: house Household Members: spouse, other *Travel in
[2020-10-29 12:27] VITALS: BP 136/85; PULSE 82; RESP 18; O2SAT 98; BMI 41.8
== END ==
PROVIDERS: PCP Nurse Practitioner Family; Visit Provider Clinical Nurse Specialist Family Health
DX: M46.1 Sacroiliitis, not elsewhere classified (principal)
CPT/HCPCS: 99212; G0463

== ENCOUNTER → 2020-11-19 10:58 | Outpatient (POV) | payer MEDICAID, SELFPAY ==
--- NOTE | 2020-11-19 11:28 | HMH.PAINSOAP ---
[facility] Pain Management SOAP Note Subjective:: 40-year-old white male who presents today for follow-up after left SI joint stabilization. He had the right SI joint stabilized sometime ago. The right side is doing well his left side he is having some issues with he does have a small draining spot beside one of his incisions. It is hard to determine if it is incisional or a unrelated spot. I do think a another week of Bactrim will be prudent. We will move forward with this. We will also give him nystatin mouthwash for thrush. Patient states he gets this every time that he has a antibiotic. Patient rates his pain today a 3 out of 10. Patient would like to discuss his arthritis pain. We will discuss changing his diclofenac to a different medication at his next visit. ROS General: no recent weight change, no fever, no sleep disturbances Respiratory: no cough, no shortness of air, no recurring pulmonary infections Cardiovascular/Peripheral Vascular: No chest pain, No palpitations, no edema, no shortness of breath. Gastrointestinal: no new onset incontinence, normal bowel movements reported Genitourinary: no new onset incontinence Musculoskeletal: back pain, SI joint pain at times Psychiatric: normal mood/ affect, Neurological: [denies new onset weakness in extremities], [denies new onset balance issues] Objective:: Physical Exam General: Alert and oriented x3, no acute distress, pleasant and cooperative, [on room air] Lungs: Resps E/U, Symmetrical chest expansion, Eyes: PERRL Musculoskeletal: Flexion and extension of lumbar spine somewhat guarded secondary to pain, deep tendon reflexes normal, strength in upper and lower extremities [5/5], [abnormal gait noted] Neurological: speech clear, 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 Patient wants to discuss his arthritis pain. I told him we would wait and readdress this in 1 week when he comes back after he is taking his Bactrim for 1 week. We will give him Bactrim DS 1 tab p.o. twice daily for 7 days we will also give him nystatin oral mouthwash for thrush. Patient has been instructed to call the office he has any issues prior to his next appointment. According to the family member in the room with him they have been sticking a needle into this area and draining it I discussed with him to not stick anything into this area. Dr. Rivas has reviewed this note and agrees with this plan of care. This note was dictated using voice recognition software and may contain errors or omissions [facility] History I have reviewed the patient's past medical history: Yes Medical History: Reports:: Gastroesophageal Reflux Disease(GERD), Hyperlipidemia, Hypertension Denies:: Cancer, Diabetes Mellitus Type 1, Diabetes Mellitus Type 2, Internal Pacemaker, MRSA, Seizures *Have you ever received a pneumonia vaccine?: Yes *Have you received a flu vaccine this season?: Yes Other Medical History: Reports: Arthritis, Other (jose roberto). Denies: Blood Transfusion Reaction Other Surgeries: Yes: Other (fatty tumor removed right calf). No: Pacemaker Amputation: No Fractures: No - *Social History Smoking Status: Current every day smoker Tobacco Type: cigarettes # Packs/Day (cigarettes): 2 Alcohol Intake: never Alcohol Intake Frequency:: 0-2 drinks per day Substance Use Type: denies use *Occupational Status:: employed Housing: house Household Members: spouse, other *Travel in the last 8 weeks: None Family Hx:: Heart Attack, Hyperlipidemia, Hypertension
[2020-11-19 12:05] VITALS: BP 142/77; PULSE 74; RESP 18; O2SAT 98; BMI 43.9
== END ==
PROVIDERS: PCP Nurse Practitioner Family; Visit Provider Clinical Nurse Specialist Family Health
DX: M46.1 Sacroiliitis, not elsewhere classified (principal); Z98.890 Other specified postprocedural states
CPT/HCPCS: 99212; G0463

== ENCOUNTER → 2020-11-26 14:34 | Outpatient (POV) | payer MEDICAID, SELFPAY ==
[2020-11-26 14:40] VITALS: BP 146/80; PULSE 75; RESP 20; O2SAT 98; BMI 44.6
--- NOTE | 2020-11-26 14:53 | HMH.PAINSOAP ---
[facility] Pain Management SOAP Note Subjective:: Patient is a pleasant 40-year-old white male who presents today for follow-up after SI joint stabilization. Patient had some discharge from his incision along with some redness at his last visit he was put on 1 additional week of Bactrim. This is since resolved. Patient incision site looks clean dry healthy with no sign symptoms of infection. Patient is tender over the area we discussed utilizing diclofenac cream in this area he is agreeable. Patient would like to start decreasing some of his medications. I discussed with him weaning schedules. He rates his pain today a 2 out of 10 ROS General: no recent weight change, no fever, no sleep disturbances Respiratory: no cough, no shortness of air, no recurring pulmonary infections Cardiovascular/Peripheral Vascular: No chest pain, No palpitations, no edema, no shortness of breath. Gastrointestinal: no new onset incontinence, normal bowel movements reported Genitourinary: no new onset incontinence Musculoskeletal: SI joint pain at times Psychiatric: normal mood/ affect Neurological: [denies new onset weakness in extremities], [denies new onset balance issues] Objective:: Physical Exam General: Alert and oriented x3, no acute distress, pleasant and cooperative, [on room air] Lungs: Resps E/U, Symmetrical chest expansion, Eyes: PERRL Musculoskeletal: Flexion and extension of lumbar spine somewhat guarded secondary to pain, deep tendon reflexes normal, strength in upper and lower extremities [5/5], antalgic gait noted Neurological: speech clear, 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 Dr. Rivas has reviewed this note and agrees with this plan of care. This note was dictated using voice recognition software and may contain errors or omissions [facility] History I have reviewed the patient's past medical history: Yes Medical History: Reports:: Gastroesophageal Reflux Disease(GERD), Hyperlipidemia, Hypertension Denies:: Cancer, Diabetes Mellitus Type 1, Diabetes Mellitus Type 2, Internal Pacemaker, MRSA, Seizures *Have you ever received a pneumonia vaccine?: No *Have you received a flu vaccine this season?: Yes Other Medical History: Reports: Arthritis, Other. Denies: Blood Transfusion Reaction Other Surgeries: Yes: Other (fatty tumor removed right calf). No: Pacemaker Amputation: No Fractures: No - *Social History Smoking Status: Current every day smoker Tobacco Type: cigarettes # Packs/Day (cigarettes): 2 Alcohol Intake: never Alcohol Intake Frequency:: 0-2 drinks per day Substance Use Type: denies use *Occupational Status:: employed Housing: house Household Members: spouse, other *Travel in the last 8 weeks: None Family Hx:: Heart Attack, Hyperlipidemia, Hypertension
== END ==
PROVIDERS: Visit Provider Clinical Nurse Specialist Family Health
DX: M46.1 Sacroiliitis, not elsewhere classified (principal)
CPT/HCPCS: 99212; G0463

== ENCOUNTER → 2020-12-10 15:01 | Outpatient (POV) | payer MEDICAID, SELFPAY ==
[2020-12-10 15:03] VITALS: BP 142/88; PULSE 89; RESP 18; O2SAT 99; BMI 44.6
--- NOTE | 2020-12-10 15:32 | P.CONS_ITS ---
[facility] Pain Management SOAP Note Subjective:: Pleasant 40-year-old white male who presents today for follow-up after SI joint stabilization he is overall doing very well rating his pain a 4 out of 10 he did overdo it in the last few days changing brakes on his car and having a's fall. Patient overall however doing well. Patient would like to discuss other medications instead of his diclofenac. We will change him to Celebrex 200 mg 1 p.o. daily. Patient's incisions have healed well there is no sign symptoms of infection ROS General: no recent weight change, no fever, no sleep disturbances Respiratory: no cough, no shortness of air, no recurring pulmonary infections Cardiovascular/Peripheral Vascular: No chest pain, No palpitations, no edema, no shortness of breath. Gastrointestinal: no new onset incontinence, normal bowel movements reported Genitourinary: no new onset incontinence Musculoskeletal: SI joint pain Psychiatric: normal mood/ affect Neurological: [denies new onset weakness in extremities], [denies new onset balance issues] Objective:: Physical Exam General: Alert and oriented x3, no acute distress, pleasant and cooperative, [on room air] Lungs: Resps E/U, Symmetrical chest expansion, Eyes: PERRL Musculoskeletal: Flexion and extension of lumbar spine somewhat guarded sec ondary to pain, deep tendon reflexes normal, strength in upper and lower extremities [5/5], [abnormal gait noted] Neurological: speech clear, rehabilitation technician equal, no gross sensory deficits Assessment:: Status post SI joint stabilization, sacroiliitis Plan:: We will start the patient on Celebrex 200 mg 1 p.o. daily we will see him back in 1 month reassess his symptoms at that time he has been instructed to call the office if he has any issues prior to his next appointment. Dr. Rivas has reviewed this note and agrees with this plan of care. This note was dictated using voice recognition software and may contain errors or omissions [facility] History I have reviewed the patient's past medical history: Yes Medical History: Reports:: Gastroesophageal Reflux Disease(GERD), Hyperlipidemia, Hypertension Denies:: Cancer, Diabetes Mellitus Type 1, Diabetes Mellitus Type 2, Internal Pacemaker, MRSA, Seizures *Have you ever received a pneumonia vaccine?: No *Have you received a flu vaccine this season?: No Other Medical History: Reports: Arthritis, Other. Denies: Blood Transfusion Reaction Other Surgeries: Yes: Other (fatty tumor removed right calf). No: Pacemaker Amputation: No Fractures: No - *Social History Smoking Status: Current every day smoker Tobacco Type: cigarettes # Packs/Day (cigarettes): 2 Alcohol Intake: never Alcohol Intake Frequency:: 0-2 drinks per day Substance Use Type: denies use *Occupational Status:: other Housing: house Household Members: spouse, other *Travel in the last 8 weeks: None Family Hx:: Heart Attack, Hyperlipidemia, Hypertension
== END ==
PROVIDERS: Visit Provider Clinical Nurse Specialist Family Health
DX: M46.1 Sacroiliitis, not elsewhere classified (principal); Z09 Encounter for follow-up examination after completed treatment for conditions other than malignant neoplasm
CPT/HCPCS: 99212; G0463

== ENCOUNTER 2020-12-11 15:07 | Emergency (ER) | payer MEDICAID, SELFPAY ==
[2020-12-11 15:48] VITALS: BP 151/86; PULSE 79; RESP 14; TEMP 37.2; O2SAT 96; BMI 44.6
--- NOTE | 2020-12-11 15:59 | HMH.EDUTC ---
[facility] Disposition Clinical Impression: Exposure to COVID-19 virus Disposition: Home, Self-Care Condition on Discharge: Good Instructions: Preventing the Spread of Coronavirus Discharge Instructions Referrals: Joe Joseph APRN [Primary Care Provider] - Time of Disposition: 16:00 Medical Decision Making - Medical Records Medical records reviewed: No: I reviewed the patient's medical records. - [place]hinde Inquiry Pt receiving controlled substance: No Vital Signs: 12/11/20 15:48 12/11/20 16:14 Temperature 98.9 F 98.7 F Temperature Source Oral Oral Pulse Rate 79 Pulse Rate [Right Brachial] 79 Respiratory Rate 14 18 Blood Pressure 151/86 H Blood Pressure [Right Arm] 151/86 H Blood Pressure Mean [Right Arm] 107 Blood Pressure Source Automatic Cuff Blood Pressure Source [Right Arm] Automatic Cuff Blood Pressure Position Supine Blood Pressure Position [Right Arm] Supine 02 Sat by Pulse Oximetry 96 Oxygen Delivery Method Room Air - Lab Data Lab results reviewed: Yes: I reviewed the patient's lab results. Orders (Tests/Meds): ORDERS Category Date Time Status Covid-19 Nasal PCR ([facility]) Routine Lab 12/11/20 15:40 Received [facility] HPI - General Stated complaint: covid test Time Seen by Provider: 12/11/20 15:59 Mode of Arrival: Ambulatory Source of Information: Patient Description of Symptoms (Recalled from Triage Doc. by RN): Patient was exposed to COVID pt son on 12/06/20. close proximity all day HEENT Symptoms (Recalled from RN notes): No Resp Symptoms (Recalled from RN notes): No Skin Symptoms (Recalled from RN notes): No MS Symptoms (Recalled from RN notes): No Functional Status (Recalled from RN notes): na - History of Present Illness Provider Complaint: He states that he was exposed to covid-19 last week. He denies any symptoms so far. - Related Data Home Medications Medication Instructions Recorded Confirmed Fluticasone Propionate [Flonase 1 spray INTRANASAL DAILY 03/13/20 11/26/20 Allergy Relief NS] Diclofenac Sodium [Diclofenac 75mg 75 mg PO BID 10/14/20 11/26/20 Tab] Fluconazole [Diflucan 100mg tablet] 100 mg PO DAILY 10/14/20 11/26/20 Loratadine [Allergy Relief] See Rx Instructions .ROUTE .COMPLEX 10/14/20 11/26/20 Pregabalin [Lyrica 75mg Cap] 75 mg PO BID 10/14/20 11/26/20 acetaminophen 500 mg capsule 500 mg PO QID 11/26/20 11/26/20 ascorbic acid (vitamin C) 250 mg 250 mg PO DAILY 11/26/20 11/26/20 chewable tablet hydroxyzine HCl 25 mg tablet 25 mg PO TID PRN 11/26/20 11/26/20 Previous Rx's Medication Instructions Recorded cyclobenzaprine 10 mg tablet 10 mg PO TID PRN #90 tab 06/15/19 Vistaril 25 mg capsule 25 mg PO TID PRN #60 cap NS 02/18/20 omeprazole 40 mg capsule,delayed 40 mg PO DAILY #90 cap 08/03/20 release montelukast 10 mg tablet 10 mg PO HS #90 tab 10/07/20 hydrochlorothiazide 25 mg tablet 25 mg PO DAILY #90 tab 10/27/20 atorvastatin 10 mg tablet 10 mg PO DAILY #90 tab 10/30/20 ropinirole 1 mg tablet 1 mg PO HS #30 tab 11/28/20 escitalopram oxalate 20 mg tablet 20 mg PO DAILY #30 tab 12/01/20 indomethacin 25 mg capsule 25 mg PO BID #60 cap 12/01/20 Celecoxib [Celebrex 200mg cap] 200 mg PO DAILY #30 cap 12/10/20 Allergies Allergy/AdvReac Type Severity Reaction Status Date / Time No Known Allergies Allergy Verified 11/26/20 14:55 - Worker's Comp Is this a Worker's Comp case?: No Is this an H Worker's Comp?: No Is this a [place] Worker's Comp?: No [facility] History - Hepatitis A Screen Drug use history?: No High risk sexual behaviors?: No History of sexually transmitted infection?: No Currently employed?: No Childcare worker?: No Do you have indoor plumbing?: Yes Do you have electricity?: Yes Attestation statement:: This patient has been screened for Hepatitis A risk factors. I have reviewed the patient's past medical history: Yes Medical History: Reports:: Gastroesophageal Reflux Disease(GERD), Hyperlipidemia, Hyperten
[2020-12-11 16:14] VITALS: BP 151/86; PULSE 79; RESP 18; TEMP 37.1; O2SAT 96
== END 2020-12-11 16:00 | disposition home or self-care (01) ==
PROVIDERS: Emergency Provider Nurse Practitioner Family; PCP Nurse Practitioner Family
DX: Z20.822 Contact with and (suspected) exposure to COVID-19 (principal); R50.9 Fever, unspecified; K21.9 Gastro-esophageal reflux disease without esophagitis; F17.210 Nicotine dependence, cigarettes, uncomplicated; E78.5 Hyperlipidemia, unspecified; Z79.899 Other long term (current) drug therapy
CPT/HCPCS: 99202; G0463; U0003

== ENCOUNTER → 2021-01-14 13:53 | Outpatient (POV) | payer MEDICAID, SELFPAY ==
--- NOTE | 2021-01-14 14:27 | HMH.PAINSOAP ---
[facility] Pain Management SOAP Note Subjective:: Patient is a pleasant 40-year-old white male who presents today for follow-up. Patient has had several instances of back pain with radiculopathy he has felt a popping sound in his lower back. He has no recent imaging. I do believe an MRI is warranted he rates his pain a 6 out of 10. He has been on anti-inflammatories for over 6 weeks. ROS General: no recent weight change, no fever, no sleep disturbances Respiratory: no cough, no shortness of air, no recurring pulmonary infections Cardiovascular/Peripheral Vascular: No chest pain, No palpitations, no edema, no shortness of breath. Gastrointestinal: no new onset incontinence, normal bowel movements reported Genitourinary: no new onset incontinence Musculoskeletal: Back pain, leg pain Psychiatric: normal mood/ affect Neurological: [denies new onset weakness in extremities], [denies new onset balance issues] Objective:: Physical Exam General: Alert and oriented x3, no acute distress, pleasant and cooperative, [on room air] Lungs: Resps E/U, Symmetrical chest expansion, Eyes: PERRL Musculoskeletal: Flexion and extension of lumbar spine somewhat guarded secondary to pain, deep tendon reflexes normal, strength in upper and lower extremities [5/5], [abnormal gait noted] Neurological: speech clear, 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 I will follow-up with him afterwards reassess his symptoms at that time he has been instructed to call the office if he has any issues prior to his next appointment. Dr. Rivas has reviewed this note and agrees with this plan of care. This note was dictated using voice recognition software and may contain errors or omissions [facility] History I have reviewed the patient's past medical history: Yes Medical History: Reports:: Gastroesophageal Reflux Disease(GERD), Hyperlipidemia, Hypertension Denies:: Cancer, Diabetes Mellitus Type 1, Diabetes Mellitus Type 2, Internal Pacemaker, MRSA, Seizures *Have you ever received a pneumonia vaccine?: No *Have you received a flu vaccine this season?: No Other Medical History: Reports: Arthritis, Other. Denies: Blood Transfusion Reaction Other Surgeries: Yes: Other (fatty tumor removed right calf). No: Pacemaker Amputation: No Fractures: No - *Social History Smoking Status: Current every day smoker Tobacco Type: cigarettes # Packs/Day (cigarettes): 2 Alcohol Intake: never Alcohol Intake Frequency:: 0-2 drinks per day Substance Use Type: denies use *Occupational Status:: other Housing: house Household Members: spouse, other *Travel in the last 8 weeks: None Family Hx:: Heart Attack, Hyperlipidemia, Hypertension
[2021-01-14 14:59] VITALS: BP 135/74; PULSE 69; RESP 18; O2SAT 98; BMI 44.6
== END ==
PROVIDERS: Visit Provider Clinical Nurse Specialist Family Health
DX: M54.16 Radiculopathy, lumbar region (principal); M54.9 Dorsalgia, unspecified
CPT/HCPCS: 99212; G0463

== ENCOUNTER → 2021-01-21 07:46 | Outpatient (CLI) | payer MEDICAID, SELFPAY ==
--- NOTE | 2021-01-21 07:47 | MR_ITS ---
PROCEDURE INFORMATION: Exam: MR Lumbar Spine Without Contrast Exam date and time: 01/21/2021 7:47 AM Age: 40 years old Clinical indication: Low back pain; Prior surgery; Additional info: Back pain. Low back pain, popping in back, stinging and pain down both legs, prior surgeries. No prior TECHNIQUE: Imaging protocol: Multiplanar magnetic resonance images of the lumbar spine without intravenous contrast. COMPARISON: No relevant prior studies available. FINDINGS: Vertebrae: 2 mm of retrolisthesis of L4 on L5 and L5 on S1. No acute fracture seen. Spinal cord: The conus medullaris ends normally. There is disc desiccation with [id number] disc height loss and spondylosis at L5-S1. Small lumbar endplate Schmorl's nodes. L1-L2: No significant disc disease. No significant spinal canal stenosis. No neural foraminal stenosis. L2-L3: No significant disc disease. No significant spinal canal stenosis. No neural foraminal stenosis. L3-L4: Mild right facet arthropathy. No stenoses. L4-L5: Caudally migrating central/left paracentral disc material measures approximately 9 mm in AP dimension and extends 18 mm below, this may represent disc extrusion, sequestration or a combination. Central spinal canal stenosis is mild. Disc material abuts the descending left L5 nerve root. Mild right lateral recess stenosis without jaleel nerve root impingement. No significant foraminal stenoses. L5-S1: [id number] diffuse disc osteophyte complex and moderate facet arthropathy. Disc osteophyte may contact the S1 nerve roots but there is no contribution to nerve root compression or displacement. No significant central spinal canal stenosis. Moderate bilateral neural foraminal stenoses at L5-S1. Soft tissues: Nonspecific edema in the back subcutaneous fat, potentially dependent/positional. Mild L5-S1 periarticular soft tissue edema, likely inflammatory/degenerative, present on the basis of advanced facet arthropathy. IMPRESSION: 1. Disc extrusion versus sequestration from L4-L5 may be cause of left L5 distribution radiculopathy. 2. L5-S1 degenerative disc disease with moderate bilateral neural foraminal stenoses.
== END ==
PROVIDERS: Visit Provider Clinical Nurse Specialist Family Health
DX: M54.5 Low back pain (principal)
CPT/HCPCS: 72148; 76376

== ENCOUNTER → 2021-02-04 14:47 | Outpatient (POV) | payer MEDICAID, SELFPAY ==
[2021-02-04 15:11] VITALS: BP 139/83; PULSE 72; RESP 18; O2SAT 95; BMI 45.3
--- NOTE | 2021-02-04 16:19 | HMH.PAINSOAP ---
[facility] Pain Management SOAP Note Subjective:: Patient is a 40-year-old white male who presents today for follow-up after MRI. He is being treated for chronic low back pain lumbar radicular symptoms. Patient says his pain is worse when he is standing and walking. He has had multiple injections in the clinic which include bilateral SI joint injections as well as medial branch blocks and RFA. He has also had SI stabilization procedures which not give him any significant relief. The patient rates his pain an 8 out of 10 today. Patient was also taking diclofenac and Celebrex together. He says he was prescribed both medications in the clinic and did not stop either medication. He is not getting relief from the medications. I have advised him to immediately stop these medications that he has been taking simultaneously. We also will discuss his MRI today. Patient says his pain does radiate into his bilateral lower extremities causing him to have bilateral leg pain as well. He has what he is calling a popping sensation to his low back. He has tried and failed physical therapy for greater than 6 weeks and continues with home stretching and ice and heat therapies. Review of Systems General: No recent weight changes, no fever, no sleep disturbances Respiratory: No cough, no shortness of air, no recurring pulmonary infections Cardiovascular/peripheral vascular: No chest pain, no palpitations, no edema, no shortness of breath Gastrointestinal: No new onset incontinence, normal bowel movements reported Genitourinary: No new onset incontinence Musculoskeletal: Low back pain worse with standing and walking radiating into lower extremities Psychiatric: Normal mood/affect Neurological: [Denies weakness in extremities], [denies balance issues] Objective:: Physical exam General: Alert and oriented x3, no acute distress, pleasant and cooperative, [on room air] Lungs: Respirations even and unlabored, symmetrical chest expansion Eyes: PERRL Musculoskeletal: Flexion and extension of lumbar spine somewhat guarded secondary to pain, deep tendon reflexes normal, strength in upper and lower extremities [5/5], [abnormal gait noted] Neurological: Speech clear, corporate relations director equal, no gross sensory deficit Assessment:: Degenerative disc disease lumbar spine with lumbar radiculopathy symptoms Plan:: Patient and I did discuss his options in the clinic. We reviewed his MRI. He has been advised to stop taking diclofenac and Celebrex. Patient has asked for neurosurgical referral. He has tried and failed RFA, medial branch block, SI stabilization and SI injections in the clinic. We did discuss possible implanted devices which would entail SCS therapy versus intrathecal therapy. The patient is not interested in either device. We will send him for neurosurgical consult and follow-up with him afterwards. He understands we are limited in our options in the clinic at this point. Patient has been instructed to contact the clinic with any concerns before the next appointment. Dr. Rivas has reviewed this note and agrees with this plan of care. This note was dictated using voice recognition software and make contain errors or omissions. [facility] History I have reviewed the patient's past medical history: Yes Medical History: Reports:: Gastroesophageal Reflux Disease(GERD), Hyperlipidemia, Hypertension Denies:: Cancer, Diabetes Mellitus Type 1, Diabetes Mellitus Type 2, Internal Pacemaker, MRSA, Seizures *Have you ever received a pneumonia vaccine?: No *Have you received a flu vaccine this season?: No Other Medical History: Reports: Arthritis, Other. Denies: Blood Transfusion Reaction Other Surgeries: Yes: Other (fatty tumor removed right calf). No: Pacemaker Amputation: No Fractures: No - *Social History Smoking Status: Current every day smoker Tobacco Type: cigarettes # Packs/Day (cigarettes): 2 Alcohol Intake: never Alcohol Intake Frequency:: 0-2 drinks per d
== END ==
PROVIDERS: Visit Provider Clinical Nurse Specialist Family Health
DX: M51.16 Intervertebral disc disorders with radiculopathy, lumbar region (principal)
CPT/HCPCS: 99212; G0463

== ENCOUNTER 2021-03-28 22:55 | Observation (INO) | payer MEDICAID, SELFPAY ==
[2021-03-28 22:55] VITALS: BP 123/87; PULSE 74; RESP 18; TEMP 36.4; O2SAT 96; BMI 45.3
[2021-03-28 22:59] VITALS: BMI 44.6
--- NOTE | 2021-03-28 23:00 | XR_ITS ---
PROCEDURE INFORMATION: Exam: XR Chest Exam date and time: 03/28/2021 11:00 PM Age: 40 years old Clinical indication: Chest pressure; Patient HX: Chest pain, ; additional info: Cp TECHNIQUE: Imaging protocol: XR of the chest. Views: 2 views. COMPARISON: CR XR CHEST 2V 07/17/2020 9:47 PM FINDINGS: Lungs: No focal consolidation. Pleural spaces: Unremarkable. No pleural effusion. No pneumothorax. Heart/Mediastinum: Unremarkable. No cardiomegaly. Bones/joints: Unremarkable. No evidence of acute displaced fracture. IMPRESSION: No acute findings.
--- NOTE | 2021-03-28 23:00 | ECG_ITS ---
APPROVED REPORT Exam: Resting ECG HR:68 bpm ECG Measurements Heart Rate 68 AXES NC 172 P 33 QRSd 92 QRS 22 QT 394 T -1 QTc 418 Conclusion Normal sinus rhythm with sinus arrhythmia Normal ECG Electronically signed by : Leonardo Delgado, 03/30/2021 17:03:15
[2021-03-28 23:06] LABS: Basophils # 0.1 K/mm3 (0-0.2); Basophils % 0.7 % (0.1-2.0); Eosinophils # 0.4 K/mm3 (0.0-0.4); Eosinophils % 4.7 % (0.1-12.0); Hematocrit 43.9 % (42.0-52.0); Hemoglobin 14.5 g/dL (14.1-18.0); Lymphocytes # 2.3 K/mm3 (0.7-4.5); Lymphocytes % 28.9 % (10-50); Mean Corpuscular HGB Conc 33.1 g/dL (31.8-35.4); Mean Corpuscular Hemoglobin 29.9 pg (27.0-31.2); Mean Corpuscular Volume 90.4 fl (80-94); Mean Platelet Volume 7.6 fl (7.4-10.4); Monocytes # 0.6 K/mm3 (0.1-1.0); Monocytes % 6.9 % (1.7-9.3); Neutrophils # 4.7 K/mm3 (1.8-7.8); Neutrophils % 58.8 % (37.0-80.0); Platelet Count 264 K/mm3 (142-424); Red Blood Count 4.86 M/mm3 (4.60-6.20); Red Cell Distribution Width 13.6 % (11.5-17.5)
[2021-03-28 23:17] LABS: Chloride 105 mmol/L (98-107)
[2021-03-28 23:18] LABS: Potassium 3.6 mmoL/L (3.5-5.1); Sodium 141 mmol/L (136-145)
[2021-03-28 23:20] LABS: Alanine Aminotransferase 99 U/L (12-78); Albumin Level 4.6 g/dl (3.5-5.0); Albumin/Globulin Ratio 1.7 (1.1-1.8); Alkaline Phosphatase 92 U/L (38-126); Anion Gap 11.6 mEq/L (5-15); Aspartate Amino Transferase 63 U/L (17-59); Bilirubin,Total 0.4 mg/dl (0.2-1.3); Blood Urea Nitrogen 12 mg/dl (9-20); Carbon Dioxide 28 mmol/L (22.0-30.0); Creatinine Clearance Estimated 104 mL/min (50-200); Estimated Glomerular Filt Rate 82 ml/min (>60); GFR (African American) 100 ML/MIN (>60); Globulin 2.7 g/dL (1.3-3.2); Total Protein,Serum 7.3 g/dl (6.3-8.2)
[2021-03-28 23:21] LABS: Calcium 9.5 mg/dl (8.4-10.2); Glucose 117 mg/dl (74-100)
[2021-03-28 23:35] LABS: Troponin I < 0.01 ng/ml (0.00-0.034)
[2021-03-28 23:48] VITALS: BP 104/58; PULSE 71; RESP 22; O2SAT 95
--- NOTE | 2021-03-28 23:50 | HMH.EDGENADL ---
ED Disposition Clinical Impression: Chest pain Disposition: Admitted As Inpatient Condition on Discharge: Good - Critical Care Critical Care Time: No Attestation: On 03/28/21, the high probability of a clinically significant, sudden or life threatening deterioration of the following system(s) required my full and direct attention, intervention and personal management. The time I documented below is in addition to time spent performing reported procedures but includes the following listed in this critical care notation. Medical Decision Making - [place] Inquiry Pt receiving controlled substance: No Vital Signs: 03/28/21 22:55 03/28/21 23:48 03/29/21 00:01 Temperature 97.6 F Temperature Source Oral Pulse Rate 71 63 Pulse Rate [Left] 74 Respiratory Rate 18 22 16 Blood Pressure 104/58 L 113/72 Blood Pressure [Right Arm] 123/87 Blood Pressure Mean 85 Blood Pressure Mean [Right Arm] 99 Blood Pressure Source Automatic Cuff Blood Pressure Source [Right Arm] Automatic Cuff Blood Pressure Position Blood Pressure Position [Right Arm] 02 Sat by Pulse Oximetry 96 95 97 Oxygen Delivery Method Room Air Room Air 03/29/21 00:40 03/29/21 01:09 03/29/21 01:27 Temperature 97.8 F Temperature Source Oral Pulse Rate 76 54 L Pulse Rate [Left] 67 Respiratory Rate 16 Blood Pressure 125/78 Blood Pressure [Right Arm] 116/63 Blood Pressure Mean Blood Pressure Mean [Right Arm] 80 Blood Pressure Source Automatic Cuff Blood Pressure Source [Right Arm] Automatic Cuff Blood Pressure Position Supine Blood Pressure Position [Right Arm] Sitting 02 Sat by Pulse Oximetry 93 L 97 Oxygen Delivery Method Room Air Room Air - Lab Data Lab Results 03/28/21 22:59: WBC 8.0, RBC 4.86, Hgb 14.5, Hct 43.9, MCV 90.4, MCH 29.9, MCHC 33.1, RDW 13.6, Plt Count 264, MPV 7.6, Neut % (Auto) 58.8, Lymph % (Auto) 28.9, [place] % (Auto) 6.9, Eos % (Auto) 4.7, Baso % (Auto) 0.7, Neut # (Auto) 4.7, Lymph # (Auto) 2.3, [place] # (Auto) 0.6, Eos # (Auto) 0.4, Baso # (Auto) 0.1 03/28/21 22:59: Sodium 141, Potassium 3.6, Chloride 105, Carbon Dioxide 28, Anion Gap 11.6, BUN 12, Creatinine 1.00, Estimated Creat Clear 104, Estimated GFR 82, Est GFR ( Amer) 100, Glucose 117 H, Calcium 9.5, Total Bilirubin 0.4, AST 63 H, ALT 99 H, Alkaline Phosphatase 92, Troponin I < 0.01, Total Protein 7.3, Albumin 4.6, Globulin 2.7, Albumin/Globulin Ratio 1.7 03/29/21 00:17: SARS-CoV-2 (PCR) Not detected, Influenza A Untype (PCR) Not detected, Influenza Type B (PCR) Not detected Result diagrams: 03/28/21 22:59 03/28/21 22:59 Orders (Tests/Meds): ED MEDICATIONS Generic Name Dose Route Start Last Admin Trade Name Freq PRN Reason Stop Dose Admin Acetaminophen 650 mg 03/29/21 00:37 Acetaminophen 325mg Tab PO 04/28/21 00:36 Q4HP PRN Fever or Mild Pain Atorvastatin Calcium 10 mg 03/29/21 21:00 Atorvastatin 10mg Tablet PO 04/28/21 20:59 [facility] Fluconazole 100 mg 03/29/21 09:00 Fluconazole 100mg Tablet PO 04/05/21 08:59 DAILY ANA LAURA Protocol Nicotine 21 mg 03/29/21 00:37 Nicotine 21mg/24hr Patch TD 04/28/21 00:36 DAILYP PRN Nicotine Cravings Nitroglycerin 0.4 mg 03/29/21 00:37 Nitroglycerin 0.4mg Sl Tablet SL 04/27/21 22:59 Q5MINP PRN Chest Pain Ondansetron HCl 4 mg 03/29/21 00:37 Ondansetron 4mg/2ml Vial IV 04/28/21 00:36 Q8HP PRN Nausea Pregabalin 75 mg 03/29/21 09:00 Pregabalin 25mg Capsule PO 04/28/21 08:59 BID ANA LAURA Ropinirole HCl 1 mg 03/29/21 21:00 Ropinirole 1mg Tablet PO 04/28/21 20:59 [facility] Discontinued Medications Generic Name Dose Route Start Last Admin Trade Name Freq PRN Reason Stop Dose Admin Aspirin 324 mg 03/28/21 23:00 03/28/21 23:02 Aspirin 81mg Chewable Tablet PO 03/28/21 23:01 324 mg ONCE ONE Administration Nitroglycerin 0.4 mg 03/28/21 23:00 03/28/21 23:02
[2021-03-29] VITALS (10 sets, daily range): BP systolic 113–139; BP diastolic 63–80; PULSE 54–80; RESP 16–20; TEMP 36.4–36.9; O2SAT 93–98; BMI 47.3
--- NOTE | 2021-03-29 | CA_ITS ---
APPROVED REPORT Exam: Pharmacologic Technologist: Yi Barbour, Ht: 5 ft 11 in Wt: 330 lbs BSA: 2.61 m2 HR: 63 bpm BP: 110/67 mmHg Medical History Medications: Omeprazole,,,,, Acetaminophen,,,,, LoraTADINE,,,,, FluTICASONE,,,,, Pregabalin,,,,, Vistaril,,,,, AtorvaASTATIN,,,,, CHANTIX,,,,, Ropinirole HCI,,,,, MonteKULAST,,,,, Stress Test Details Test: LEXISCAN HR Resting HR: 62 bpm Max Heart Rate (APMHR): 179.221383 bpm Max HR Achieved: 100 bpm Target HR (85% APMHR): 152.630709 bpm % of APMHR: 55.87 Recovery HR: 74 bpm BP Resting BP: 110/67 mmHg Max BP: 135/73 mmHg Recovery BP: 125.0/66.0 mmHg ECG Resting ECG: Sinus Rhythm Clinical Exercise duration: 04:01 min Highest Stage Achieved: Stress ECG Conclusion Lexiscan portion completed. Pt c/o shortness of breath during peak infusion. Resolved in recovery. Symptoms: No CP (+) SOB during peak infusion Arrhythmias/Ectopy: Occ PVC ST-T Changes: Less than 1.5mm ST depression Conclusion: Images to follow Test Summary REST . . . . . . . Resting REST 02:02 . . 62 . 110/ 67 . . Stage 1 . . . . . . . Myoview Injected Stage 1 01:00 . . 98 . . . . Stage 2 01:00 . . 97 . 114/ 69 . . Stage 3 01:00 . . 85 . 128/ 73 . . Stage 4 01:00 . . 85 . 128/ 71 . . Stage 4 01:01 . . 83 . 128/ 71 . Stop exercise at 04:01 RECOVERY 01:00 . . 77 . . . . RECOVERY 02:00 . . 71 . 135/ 73 . . RECOVERY 03:00 . . 77 . 135/ 73 . . RECOVERY 04:00 . . 72 . 125/ 66 . . RECOVERY 04:04 . . 74 . 125/ 66 . . Electronically signed by : Andrez Mcduffie, 03/29/2021 17:32:08
[2021-03-29 00:20] LABS: Coronavirus 19, PCR Not Detected (NotDetected); Influenza A, PCR Not Detected (NotDetected); Influenza B, PCR Not Detected (NotDetected)
--- NOTE | 2021-03-29 00:53 | PC.NURSE ---
report called to Lanette WINN
--- NOTE | 2021-03-29 01:08 | PC.NURSE ---
patient up to floor via wheelchair.
[2021-03-29 02:34] LABS: Troponin I < 0.01 ng/ml (0.00-0.034)
--- NOTE | 2021-03-29 03:13 | PC.NURSE ---
Patient was new admit this shift. Patient is A&Ox4. No complaints of pain. patient is on room air and oxygen saturation is in high 90's. Patient resting comfortably in bed. No further concerns voiced to RN.
[2021-03-29 05:37] LABS: Troponin I < 0.01 ng/ml (0.00-0.034)
--- NOTE | 2021-03-29 08:15 | CA_ITS ---
APPROVED REPORT EXAM: Comprehensive 2D, Doppler, and color-flow Echocardiogram Pump Tester: Chani Moreno RT(R) Ht: 5 ft 11 in Wt: 330lbs BSA: 2.61 BP: 104/58 mmHg Indications: CP, smoker, HTN, hyperlipidmia, GERD 2D Dimensions LVOT 2.30 cm (M/F) 1.5-2.5 LVEF (Norris's) 54.60 % M: 52 - 72 LV Volume 133.60 mL M: 62 - 150 LV Volume Index 51.18 mL/m2 M: 34 - 74 LA Volume 37.80 mL LA Volume Index 14.48 mL/m2 (M/F) 16-34 M-Mode Dimensions RVDd 2.43 cm (0.9-2.6) LA Diam 4.12 cm (1.9-4.0) LVDd 4.40 cm (3.5-5.7) Ao Diam 2.95 cm (2.0-3.7) LVDs 3.42 cm (3.5-5.7) IVSd 1.21 cm (0.6-1.1) PWd 0.96 cm (0.6-1.1) EF (Teich) 45.20% FS 22.30% EDV (Teich) 87.70 mL ESV (Teich) 48.10 mL LV Diastology E Decel Time 210.00 (160-240 msec) E/A Ratio 1.4 MED E' 11.60 (< 7 cm/sec) E'/MED E' Ratio 6.73 (>14) LAT E' 13.40 (<10 cm/sec) E/LAT E' Ratio 5.83 (>14) Mitral Valve MV E Max Jayro. 78.00 (40-130 cm/s) MV A Velocity 55.00 (40-130 cm/s) E/A Ratio 1.41 MV Decel. Time 210.00 (160-240 ms) MV PHT 62.00 ms Left Ventricle Left atrium is normal size, left ventricle is normal size, visually estimated ejection fraction 55% with no regional wall motion abnormality, diastolic parameters are inconclusive. Right Ventricle Right atrium and right ventricle are normal size and contractility. Aortic Valve Aortic valve is grossly normal, there is no aortic stenosis or aortic insufficiency. Mitral Valve Mitral valve grossly normal, there is trace mitral regurgitation. Tricuspid Valve Tricuspid valve grossly normal, there is trace tricuspid regurgitation, tricuspid regurgitation jet velocity is inadequate for calculation of the right ventricular systolic pressure. Pulmonic Valve Pulmonic valve is poorly visualized. Great Vessels Aortic root is normal size. No significant pericardial effusion noted. Conclusion 1. Normal left ventricular size, visually estimated ejection fraction 55% with no regional wall motion abnormality, diastolic parameters are inconclusive. 2. Trace mitral and tricuspid regurgitation. 3. No significant pericardial effusion noted. Electronically signed by : Andrez Mcduffie, 03/29/2021 21:52:01
--- NOTE | 2021-03-29 08:39 | P.CONPHA_ITS ---
[facility] Pharmacy VTE Monitoring - Patient Demographics Admission date: 03/28/21 Report Date: 03/29/21 Time: 08:39 Allergies/Adverse Reactions: Patient Allergies No Known Allergies Allergy (Verified 01/27/21 15:21) Height: 1.78 m Weight: 149.685 kg Patient Problems: Current Active Problems Chest pain (Acute) - VTE Risk Labs: VTE Related Lab Results Hgb 14.5 g/dL (14.1-18.0) 03/28/21 22:59 Hct 43.9 % (42.0-52.0) 03/28/21 22:59 Plt Count 264 K/mm3 (142-424) 03/28/21 22:59 BUN 12 mg/dl (9-20) 03/28/21 22:59 Creatinine 1.00 mg/dl (0.66-1.25) 03/28/21 22:59 Estimated Creat Clear 104 mL/min (50-200) 03/28/21 22:59 VTE Risk Level: Moderate Risk Clinical Trial Participant: No - Prophylaxis VTE Prophylaxis Ordered?: Yes Types of VTE Prophylaxis: TEDS Knee High Location of Applied Device: Bilateral Lower Extremeties
--- NOTE | 2021-03-29 09:09 | HMH.CNCARD ---
History of Present Illness Consult date: 03/29/21 Requesting physician: Damien Chavis Consult reason: chest pain Chief complaint: chest pain History of present illness: 40-year-old male presented to ED with midsternal chest pain radiating to the neck. Patient states while he was home started having a sharp pain in the center of his chest radiating to the center of his neck. Patient states he then became very short of breath and nauseated. Patient states on the way to the ED his chest pain was relieved with rest and nausea had been resolved. Since admission to facility patient denies chest pain, tightness or pressure. Patient denies shortness of breath. No swelling noted of the lower extremities. Patient does have history of tobacco use. Patient states he is currently on Chantix in which he has decreased to 1 pack/day instead of 3 to 4 packs/day. Patient denies any alcohol use. Patient denies history of coronary artery disease. Patient states he did have a stress test a few years ago which was negative. There is significant family history of coronary artery disease. Father and uncles are all noted to have MIs or coronary artery bypass. Patient does have history of hyperlipidemia in which he is on atorvastatin. This is managed by PCP. opthalmic tech reveals sinus bradycardia with a heart rate of 58 bpm. Blood pressure stable. Patient does have history of hypertension which is managed by PCP. Preliminary echocardiogram reveals EF greater than 50%. Patient does have history of obstructive sleep apnea. Patient is treated with CPAP. This is managed by PCP. Initial EKG revealed sinus bradycardia with a heart rate of 59 bpm. Serial troponins negative. Labs are unremarkable. Chest x-ray revealed no acute findings noted. Discussed plan of care with Dr. Winn. Recommendations and orders received from Dr. Winn. Obtain echocardiogram to assess LV function and valve status. Will obtain liver and lipid panel due to hyperlipidemia. We will set patient up for a Lexiscan Myoview stress test today. Patient is unable to walk on the treadmill due to lower chronic back pain. Pending on the results of the echocardiogram and Lexiscan Myoview stress test, medication and treatment therapies may be recommended. Please notify cardiology of any changes in patient status. Thank you for allowing cardiology to participate in the care of this patient. [facility] History I have reviewed the patient's past medical history: Yes Medical History: Reports:: Gastroesophageal Reflux Disease(GERD), Hyperlipidemia, Hypertension Denies:: Cancer, Diabetes Mellitus Type 1, Diabetes Mellitus Type 2, Internal Pacemaker, MRSA, Seizures *Have you ever received a pneumonia vaccine?: No *Have you received a flu vaccine this season?: No Other Medical History: Reports: Arthritis, Other. Denies: Blood Transfusion Reaction Other Surgeries: Yes: Other (fatty tumor removed right calf). No: Pacemaker Amputation: No Fractures: No - *Social History Smoking Status: Current every day smoker Tobacco Type: cigarettes # Packs/Day (cigarettes): 2 Alcohol Intake: current Alcohol Intake Frequency:: 0-2 drinks per day Substance Use Type: denies use *Occupational Status:: disabled Housing: house Household Members: spouse, other *Travel in the last 8 weeks: None Family Hx:: Cancer, Diabetes, Heart Attack, Hyperlipidemia, Hypertension, Stroke, Thyroid Disorder, Substance abuse, Alcoholism, Mental illness Meds Home Medications Medication Instructions Recorded Confirmed Type Vistaril 25 mg capsule 25 mg PO TID PRN #60 cap NS 02/18/20 03/29/21 Rx Pregabalin [Lyrica 75mg Cap] 75 mg PO BID 10/14/20 03/29/21 History atorvastatin 10 mg tablet 10 mg PO DAILY #90 tab 01/27/21 03/29/21 Rx montelukast 10 mg tablet 10 mg PO HS #90 tab 01/27/21 03/29/21 Rx fluticasone propionate 50 1 spray INTRANASAL DAILY #16 g 03/10/21 03/29/21 Rx mcg/actuation nasal spray,suspensi
--- NOTE | 2021-03-29 09:24 | NM_ITS ---
Dictated by: Ruben Radiologist 03/29/2021 14:53 Ruben Radiologist in [place] 03/29/2021 14:53
[2021-03-29 09:46] LABS: Alanine Aminotransferase 94 U/L (12-78); Albumin Level 4.1 g/dl (3.5-5.0); Alkaline Phosphatase 73 U/L (38-126); Aspartate Amino Transferase 69 U/L (17-59); Bilirubin,Direct 0.5 mg/dl (0.0-0.4); Bilirubin,Indirect 0.1 mg/dL (0.0-0.9); Bilirubin,Total 0.6 mg/dl (0.2-1.3); Cholesterol 159 mg/dl (140-200); HDL Cholesterol 32 mg/dl (40-60); Total Protein,Serum 6.7 g/dl (6.3-8.2); Triglycerides 238 mg/dl (30-150); VLDL Cholesterol 48 mg/dL (0-40)
[2021-03-29 09:57] LABS: Direct LDL Cholesterol 84.54 mg/dL (100-129)
--- NOTE | 2021-03-29 16:06 | HMH.HPDC ---
General - General Admission date:: 03/29/21 Discharge date: 03/29/21 *Admission Date: 03/28/21 *Chief complaint: chest pain *History of present illness: this patient presented to the [place] ed -patient to ED for chest pain since 2199. patient states that the pain is dull, and aches. but the pain radiates into right side of neck into right side of face. patient states now that he is sick to his stomach. States that after he took a shower at about 10 PM he developed chest pain in his right parasternal area that went up the right side of his neck to the right side of his face. Associated with diaphoresis and nausea. Denies shortness of breath. On arrival states that the pain was easing up and resolving. Pain initially resolved in his face and now all of his pain has resolved. Currently asymptomatic. States that he was admitted for chest pain to [facility] 3 years ago and had a stress test. He did not have a cardiac cath. He says the pain at that time did not radiate into his neck or face. pt was admitted for card eval and consult [facility] History I have reviewed the patient's past medical history: Yes Medical History: Reports:: Gastroesophageal Reflux Disease(GERD), Hyperlipidemia, Hypertension Denies:: Cancer, Diabetes Mellitus Type 1, Diabetes Mellitus Type 2, Internal Pacemaker, MRSA, Seizures *Have you ever received a pneumonia vaccine?: No *Have you received a flu vaccine this season?: No Other Medical History: Reports: Arthritis, Other. Denies: Blood Transfusion Reaction Other Surgeries: Yes: Other (fatty tumor removed right calf). No: Pacemaker Amputation: No Fractures: No - *Social History Smoking Status: Current every day smoker Tobacco Type: cigarettes # Packs/Day (cigarettes): 2 Alcohol Intake: current Alcohol Intake Frequency:: 0-2 drinks per day Substance Use Type: denies use *Occupational Status:: disabled Housing: house Household Members: spouse, other *Travel in the last 8 weeks: None Family Hx:: Cancer, Diabetes, Heart Attack, Hyperlipidemia, Hypertension, Stroke, Thyroid Disorder, Substance abuse, Alcoholism, Mental illness Review of Systems - Review of Systems Review of systems:: pertinent systems reviewed and negative unless documented below - Constitutional Denies fever(s) - Eyes Denies change in vision - ENT Denies headache(s) - *Cardiovascular Reports chest pain, Reports chest pain at rest, Reports radiating jaw, neck or arm pain - *Respiratory Denies cough - *Gastrointestinal Denies abdominal pain - *Genitourinary Denies blood in urine - *Musculoskeletal Denies joint pain - Integumentary/Breasts Denies rash - *Neurologic Reports abnormal walking, Denies dizziness, Denies headache(s) - Psychiatric Denies anxiety Exam Vital signs and Labs for Last 24 Hours: Temp Pulse Resp BP Pulse Ox 98.4 F 69 18 130/74 98 03/29/21 15:52 03/29/21 15:52 03/29/21 15:52 03/29/21 15:52 03/29/21 15:52 Laboratory Results - last 24 hr 03/28/21 22:59: WBC 8.0, RBC 4.86, Hgb 14.5, Hct 43.9, MCV 90.4, MCH 29.9, MCHC 33.1, RDW 13.6, Plt Count 264, MPV 7.6, Neut % (Auto) 58.8, Lymph % (Auto) 28.9, [place] % (Auto) 6.9, Eos % (Auto) 4.7, Baso % (Auto) 0.7, Neut # (Auto) 4.7, Lymph # (Auto) 2.3, [place] # (Auto) 0.6, Eos # (Auto) 0.4, Baso # (Auto) 0.1 03/28/21 22:59: Sodium 141, Potassium 3.6, Chloride 105, Carbon Dioxide 28, Anion Gap 11.6, BUN 12, Creatinine 1.00, Estimated Creat Clear 104, Estimated GFR 82, Est GFR ( Amer) 100, Glucose 117 H, Calcium 9.5, Total Bilirubin 0.4, AST 63 H, ALT 99 H, Alkaline Phosphatase 92, Troponin I < 0.01, Total Protein 7.3, Albumin 4.6, Globulin 2.7, Albumin/Globulin Ratio 1.7 03/29/21 00:17: SARS-CoV-2 (PCR) Not detected, Influenza A Untype (PCR) Not detected, Influenza Type B (PCR) Not detected 03/29/21 02:05: Troponin I < 0.01 03/29/21 05:01: Troponin I < 0.01 03/29/21 05:01: Total Bilirubin 0.6, Direct Bilirubin 0.5 H, Conjugated
== END 2021-03-29 17:17 | disposition home or self-care (01) ==
LOC: ER 23:21 → 2ND 03-29 00:55
PROVIDERS: Urology; Admitting Provider Internal Medicine Adolescent Medicine; Emergency Provider Emergency Medicine; PCP Nurse Practitioner Family; Visit Provider Emergency Medicine
DX: R07.9 Chest pain, unspecified (principal); I10 Essential (primary) hypertension; K21.9 Gastro-esophageal reflux disease without esophagitis; F17.210 Nicotine dependence, cigarettes, uncomplicated; M47.26 Other spondylosis with radiculopathy, lumbar region; G47.33 Obstructive sleep apnea (adult) (pediatric); Z79.899 Other long term (current) drug therapy
CPT/HCPCS: 36415; 71046; 78452; 80053; 80061; 80076; 84484; 85025; 93005; 93017; 93306; 99283; A9502; G0378; J2785; U0003

== ENCOUNTER 2021-04-05 13:57 | Emergency (ER) | payer MEDICAID, SELFPAY ==
[2021-04-05 13:58] VITALS: BP 135/77; PULSE 77; RESP 20; TEMP 36.7; O2SAT 97; BMI 45.3
[2021-04-05 14:13] VITALS: BP 135/77; PULSE 73; RESP 28; O2SAT 97
[2021-04-05 14:15] LABS: Coronavirus 19, PCR Not Detected (NotDetected); Influenza A, PCR Not Detected (NotDetected); Influenza B, PCR Not Detected (NotDetected)
--- NOTE | 2021-04-05 14:15 | ECG_ITS ---
APPROVED REPORT Exam: Resting ECG HR:74 bpm ECG Measurements Heart Rate 74 AXES DE 148 P 31 QRSd 84 QRS 16 QT 378 T 29 QTc 419 Conclusion Normal sinus rhythm Normal ECG Electronically signed by : Leonardo Delgado, 04/06/2021 08:23:32
--- NOTE | 2021-04-05 14:40 | XR_ITS ---
PROCEDURE: XR CHEST PORTABLE CLINICAL HISTORY: SOB COMPARISON: CR XR CHEST 2V from 07/17/2020 CR XR CHEST 2V from 03/28/2021 FINDINGS: The cardiomediastinal silhouette and pulmonary vascularity are within normal limits. The lungs are clear without infiltrates, suspicious nodules, or pleural effusions. No acute bony abnormalities. IMPRESSION: No acute findings. Dictated by: Elian Klein MD 04/05/2021 15:22 Elian Klein MD in [place] 04/05/2021 15:22
--- NOTE | 2021-04-05 14:43 | HMH.EDGENADL ---
ED Disposition Clinical Impression: Viral URI with cough Disposition: Home, Self-Care Condition on Discharge: Good Instructions: Cough Additional Instructions: May take Tylenol and ibuprofen as needed for pain relief. Please drink warm beverages with honey to soothe your throat If symptoms persist or worsen, please follow-up with your PCP Viral illnesses typically last 5 to 7 days but are worse around day 3 or 4. There is a chance you may feel worse tomorrow. Referrals: Mt Frost MD [Primary Care Provider] - - Critical Care Critical Care Time: No Attestation: On 04/05/21, the high probability of a clinically significant, sudden or life threatening deterioration of the following system(s) required my full and direct attention, intervention and personal management. The time I documented below is in addition to time spent performing reported procedures but includes the following listed in this critical care notation. Medical Decision Making - Medical Records Medical records reviewed: Yes: I reviewed the patient's medical records. - Kehinde Inquiry Pt receiving controlled substance: No Vital Signs: 04/05/21 13:58 04/05/21 14:13 04/05/21 15:01 Temperature 98.0 F Temperature Source Oral Pulse Rate 73 70 Pulse Rate [Left] 77 Respiratory Rate 20 28 H 11 L Blood Pressure 135/77 112/79 Blood Pressure [Right Arm] 135/77 Blood Pressure Mean [Right Arm] 96 Blood Pressure Source [Right Arm] Automatic Cuff Blood Pressure Position [Right Arm] Supine 02 Sat by Pulse Oximetry 97 97 97 Oxygen Delivery Method Room Air - Lab Data Lab Results 04/05/21 14:05: SARS-CoV-2 (PCR) Not detected, Influenza A Untype (PCR) Not detected, Influenza Type B (PCR) Not detected 04/05/21 14:15: WBC 6.5, RBC 5.14, Hgb 15.6, Hct 46.5, MCV 90.6, MCH 30.4, MCHC 33.5, RDW 14.0, Plt Count 236, MPV 8.4, Neut % (Auto) 62.5, Lymph % (Auto) 23.2, [place] % (Auto) 9.5 H, Eos % (Auto) 3.8, Baso % (Auto) 1.0, Neut # (Auto) 4.1, Lymph # (Auto) 1.5, [place] # (Auto) 0.6, Eos # (Auto) 0.3, Baso # (Auto) 0.1 04/05/21 14:15: Sodium 139, Potassium 4.0, Chloride 105, Carbon Dioxide 25, Anion Gap 13.0, BUN 14, Creatinine 0.80, Estimated Creat Clear 129, Estimated GFR 107, Est GFR ( Amer) 129, Glucose 126 H, Calcium 9.4, Total Bilirubin 0.4, AST 70 H, ALT 101 H, Alkaline Phosphatase 95, Troponin I < 0.01, Total Protein 7.5, Albumin 4.6, Globulin 2.9, Albumin/Globulin Ratio 1.6 04/05/21 14:15: NT-Pro-B Natriuret Pep < 11.1 Result diagrams: 04/05/21 14:15 04/05/21 14:15 Orders (Tests/Meds): ORDERS Category Date Time Status Troponin I Q3H Lab 04/05/21 17:45 Ordered Troponin I Q3H Lab 04/05/21 20:45 Ordered Medical Decision Narrative: Upon presentation, patient is hemodynamically stable and nontoxic-appearing. Patient presents with cough, throat pain, shortness of breath. Differential diagnosis includes but is not limited to COVID-19, pneumonia, viral URI. Labs including CBC, CMP, BNP were obtained along with a chest x-ray. Patient does not have wheezes on exam, does not require breathing treatment at this time. Reviewed patient's labs and images. Patient's labs were nonactionable. Patient's chest x-ray does not demonstrate any focal pneumonias, hilar infiltrates, pleural effusions, pulmonary edema. Patient's BNP is normal. Patient is negative for COVID-19 and flu. Patient is not hypoxic, and is moving air appropriately through both lungs. As such, patient likely has other viral URI. He was discharged in stable condition. He was agreeable to plan. General Adult HPI - General Chief complaint: Shortness of Breath/Dyspnea Stated complaint: weakness, muscle pain, vomiting Time Seen by Provider: 04/05/21 14:40 Mode of Arrival: Ambulatory Limitations: No Limitations Description of Symptoms (Recalled from ER Triage Doc. by RN): patient states that his grandsons daycare was recently closed due to a child testing positive to
[2021-04-05 14:46] LABS: Basophils # 0.1 K/mm3 (0-0.2); Chloride 105 mmol/L (98-107); Eosinophils # 0.3 K/mm3 (0.0-0.4); Eosinophils % 3.8 % (0.1-12.0); Hematocrit 46.5 % (42.0-52.0); Hemoglobin 15.6 g/dL (14.1-18.0); Lymphocytes # 1.5 K/mm3 (0.7-4.5); Lymphocytes % 23.2 % (10-50); Mean Corpuscular HGB Conc 33.5 g/dL (31.8-35.4); Mean Corpuscular Hemoglobin 30.4 pg (27.0-31.2); Mean Corpuscular Volume 90.6 fl (80-94); Mean Platelet Volume 8.4 fl (7.4-10.4); Monocytes # 0.6 K/mm3 (0.1-1.0); Monocytes % 9.5 % (1.7-9.3); Neutrophils # 4.1 K/mm3 (1.8-7.8); Neutrophils % 62.5 % (37.0-80.0); Platelet Count 236 K/mm3 (142-424); Red Blood Count 5.14 M/mm3 (4.60-6.20); Sodium 139 mmol/L (136-145); White Blood Count 6.5 K/mm3 (4.8-10.8)
[2021-04-05 14:49] LABS: Alanine Aminotransferase 101 U/L (12-78); Albumin Level 4.6 g/dl (3.5-5.0); Albumin/Globulin Ratio 1.6 (1.1-1.8); Alkaline Phosphatase 95 U/L (38-126); Aspartate Amino Transferase 70 U/L (17-59); Bilirubin,Total 0.4 mg/dl (0.2-1.3); Blood Urea Nitrogen 14 mg/dl (9-20); Calcium 9.4 mg/dl (8.4-10.2); Carbon Dioxide 25 mmol/L (22.0-30.0); Creatinine Clearance Estimated 129 mL/min (50-200); Estimated Glomerular Filt Rate 107 ml/min (>60); GFR (African American) 129 ML/MIN (>60); Globulin 2.9 g/dL (1.3-3.2); Glucose 126 mg/dl (74-100); Total Protein,Serum 7.5 g/dl (6.3-8.2)
--- NOTE | 2021-04-05 14:50 | PC.NURSE ---
RT at bedside
[2021-04-05 15:01] VITALS: BP 112/79; PULSE 70; RESP 11; O2SAT 97
[2021-04-05 15:07] LABS: Troponin I < 0.01 ng/ml (0.00-0.034)
[2021-04-05 15:16] LABS: NT Pro Brain Natriuretic Pep. < 11.1 pg/mL (0-125)
[2021-04-05 16:57] VITALS: BP 134/71; PULSE 76; RESP 18; TEMP 36.7; O2SAT 98
== END 2021-04-05 16:56 | disposition home or self-care (01) ==
PROVIDERS: Emergency Provider Emergency Medicine; PCP Family Medicine
DX: J06.9 Acute upper respiratory infection, unspecified (principal); K21.9 Gastro-esophageal reflux disease without esophagitis; E78.5 Hyperlipidemia, unspecified; I10 Essential (primary) hypertension; F17.210 Nicotine dependence, cigarettes, uncomplicated; Z79.899 Other long term (current) drug therapy
CPT/HCPCS: 71045; 80053; 83880; 84484; 85025; 93005; 99283; U0003

== ENCOUNTER → 2021-05-03 09:35 | Outpatient (CLI) | payer MEDICAID, SELFPAY ==
--- NOTE | 2021-05-03 09:40 | XR_ITS ---
PROCEDURE: XR FOOT WT BEARING LT 3V CLINICAL INDICATION: pain COMPARISON: No exams were available for comparison FINDINGS: No fracture or dislocation. No lytic or blastic change. There is normal mineralization. The joint spaces are well-preserved. No significant degenerative/arthritic changes. No erosive changes evident. Other findings:None. IMPRESSION: No acute findings. Dictated by: Elian Klein MD 05/03/2021 11:00 Elian Klein MD in [place] 05/03/2021 11:00
--- NOTE | 2021-05-03 09:40 | XR_ITS ---
PROCEDURE: XR FOOT WT BEARING RT 3V CLINICAL INDICATION: pain COMPARISON: No exams were available for comparison FINDINGS: No fracture or dislocation. No lytic or blastic change. There is normal mineralization. The joint spaces are well-preserved. No significant degenerative/arthritic changes. No erosive changes evident. Other findings:None. IMPRESSION: No acute findings. Dictated by: Elian Klein MD 05/03/2021 10:59 Elian Klein MD in [place] 05/03/2021 10:59
== END ==
PROVIDERS: PCP Nurse Practitioner Family; Visit Provider Podiatrist
DX: M79.672 Pain in left foot (principal); M79.671 Pain in right foot
CPT/HCPCS: 73630

== ENCOUNTER → 2021-05-03 11:50 | Outpatient (CLI) | payer MEDICAID, SELFPAY ==
[2021-05-03 12:04] LABS: Basophils # 0.1 K/mm3 (0-0.2); Basophils % 0.9 % (0.1-2.0); Eosinophils # 0.5 K/mm3 (0.0-0.4); Eosinophils % 4.1 % (0.1-12.0); Hematocrit 49.9 % (42.0-52.0); Lymphocytes # 2.5 K/mm3 (0.7-4.5); Lymphocytes % 22.2 % (10-50); Mean Corpuscular Hemoglobin 30.4 pg (27.0-31.2); Mean Corpuscular Volume 95.1 fl (80-94); Mean Platelet Volume 8.2 fl (7.4-10.4); Monocytes # 0.7 K/mm3 (0.1-1.0); Monocytes % 5.9 % (1.7-9.3); Neutrophils # 7.5 K/mm3 (1.8-7.8); Neutrophils % 66.8 % (37.0-80.0); Platelet Count 336 K/mm3 (142-424); Red Blood Count 5.25 M/mm3 (4.60-6.20); White Blood Count 11.2 K/mm3 (4.8-10.8)
[2021-05-03 12:50] LABS: Alanine Aminotransferase 100 U/L (12-78); Albumin Level 4.7 g/dl (3.5-5.0); Albumin/Globulin Ratio 1.7 (1.1-1.8); Alkaline Phosphatase 90 U/L (38-126); Anion Gap 18.4 mEq/L (5-15); Aspartate Amino Transferase 59 U/L (17-59); Bilirubin,Total 0.4 mg/dl (0.2-1.3); Blood Urea Nitrogen 15 mg/dl (9-20); Carbon Dioxide 27 mmol/L (22.0-30.0); Chloride 100 mmol/L (98-107); Estimated Glomerular Filt Rate 82 ml/min (>60); GFR (African American) 100 ML/MIN (>60); Globulin 2.8 g/dL (1.3-3.2); Glucose 139 mg/dl (74-100); Potassium 4.4 mmoL/L (3.5-5.1); Sodium 141 mmol/L (136-145); Total Protein,Serum 7.5 g/dl (6.3-8.2)
== END ==
PROVIDERS: Visit Provider Podiatrist
DX: B35.1 Tinea unguium (principal); L02.612 Cutaneous abscess of left foot; L03.119 Cellulitis of unspecified part of limb
CPT/HCPCS: 36415; 80053; 85025

== ENCOUNTER → 2021-06-15 11:28 | Outpatient (POV) | payer MEDICAID, SELFPAY ==
[2021-06-15 11:52] VITALS: BP 159/80; PULSE 70; RESP 18; O2SAT 95; BMI 45.3
--- NOTE | 2021-06-15 12:28 | HMH.PAINSOAP ---
[facility] Pain Management SOAP Note Subjective:: Patient is a 40-year-old white male who presents today due to recent fall. The patient has been seen in our clinic since 2019 for continued low back pain with radiation into lower extremities. The patient has had SI injections as well as medial branch blocks with RFA in 2019. He did undergo repeat SI injection on 04/23/2020 and a left SI stabilization procedure on 10/14/2020. Since his corner lock, he did have a fall causing him to have worse pain in the right low back area with radiation into the right leg. He says that he is having significant pain in his mid back and neck as well. He does have an MRI from 01/21/2021. Patient was referred to neurosurgery following his MRI. Unfortunately, he was informed by the physician that he is not a surgical candidate. Due to the patient's continued pain he has had a significant weight gain and worsening symptoms. He is not interested in oral medications or an implanted devices. He has not had any recent injective therapy. He does rate his pain a 6 out of 10. He is using a cane for ambulation. He is also having arthritic type pain in his shoulders, knees. He has taken ibuprofen as well as Tylenol and diclofenac with no relief. He does say the neurosurgeon did start him on gabapentin for pain in his lower extremities. He says the burning sensation has subsided since starting the medication but he does not feel it is helping with any of his pain. Patient does report a family history of narcotic abuse and does not feel comfortable taking opiates. Review of Systems General: No recent weight changes, no fever, no sleep disturbances Respiratory: No cough, no shortness of air, no recurring pulmonary infections Cardiovascular/peripheral vascular: No chest pain, no palpitations, no edema, no shortness of breath Gastrointestinal: No new onset incontinence, normal bowel movements reported Genitourinary: No new onset incontinence Musculoskeletal: Right shoulder pain, neck pain, mid back pain, low back pain with radiation into right buttock and right leg. Pain in leg stops at knee Psychiatric: [Normal mood/affect] Neurological: [Denies weakness in extremities], [denies balance issues] Objective:: Physical exam General: Alert and oriented x3, no acute distress, pleasant and cooperative Lungs: Respirations even and unlabored, symmetrical chest expansion Eyes: PERRL Musculoskeletal: Flexion and extension of cervical, thoracic, lumbar [spine] somewhat guarded secondary to pain, [antalgic gait noted] use of cane noted with ambulation Neurological: Speech clear, no gross sensory deficit Assessment:: Degenerative disc disease lumbar spine with lumbar radiculopathy symptoms, acute low back pain?status post fall Plan:: Patient is a 40-year-old white male who is following up after a fall. He is having acute versus chronic low back pain. The patient has had a corner lock stabilization procedure to the left SI joint in 10/14/2020. He does not feel he got significant relief with the procedure. He was referred to neurosurgery and is not considered a neurosurgical candidate. He has taken ibuprofen, Tylenol, diclofenac in the past with no substantial relief. He is currently taking gabapentin prescribed by the neurosurgeon. It is ordered 3 times a day, but he only takes it 2 times daily. He does feel that it has helped with the burning sensation in his lower extremities but has not relieved any of his pain. Since the fall his pain does seem to be worse in the low back and right leg. He is also having pain in his mid back and neck. We will schedule him for x-ray of lumbar spine and pelvis due to fall and worsening pain to the area. We did review his previous MRI. Per the MRI report Disc extrusion versus sequestration from L4-L5 may be cause of left L5 distribution radiculopathy, L5-S1 degenerative disc disease with moderate bilateral neural foraminal stenosis .
--- NOTE | 2021-06-15 12:55 | XR_ITS ---
PROCEDURE: XR LUMBAR SPINE MIN 4V CLINICAL INDICATION: FALL WITH WORESENING PAIN COMPARISON: MR MR LUMBAR SPINE WO CON from 01/21/2021 FINDINGS: No fracture or dislocation. No lytic or blastic change. There is normal mineralization. There is normal alignment. Degenerative disc disease is present at L5-S1. There is mild retrolisthesis of the tip of the coccyx by approximately 5 mm. Other findings:None. IMPRESSION: Degenerative disc disease L5-S1. 5 mm retrolisthesis the tip of the coccyx which could be posttraumatic in nature. Dictated by: Elian Klein MD 06/15/2021 14:18 Elian Klein MD in [place] 06/15/2021 14:18
--- NOTE | 2021-06-15 12:55 | XR_ITS ---
PROCEDURE: XR PELVIS 1-2V CLINICAL INDICATION: FALL WITH WORESENING PAIN COMPARISON: No exams were available for comparison TECHNIQUE: XR Pelvis AP View FINDINGS: No fracture or dislocation is evident. No significant degenerative change. No lytic or blastic change. IMPRESSION: No acute findings. Dictated by: Elian Klein MD 06/15/2021 14:31 Elian Klein MD in [place] 06/15/2021 14:31
== END ==
PROVIDERS: Visit Provider Clinical Nurse Specialist Family Health
DX: M51.16 Intervertebral disc disorders with radiculopathy, lumbar region (principal); W19.XXXA Unspecified fall, initial encounter; M79.673 Pain in unspecified foot
CPT/HCPCS: 72110; 72170; 99212; G0463

== ENCOUNTER → 2021-06-15 12:48 | Outpatient (CLI) | payer MEDICAID, SELFPAY | PROVIDERS: PCP Nurse Practitioner Family; Visit Provider Anesthesiology | DX: M54.50 Low back pain, unspecified (principal); R10.2 Pelvic and perineal pain ==

== ENCOUNTER 2021-07-02 14:09 | Day surgery (SDC) | payer MEDICAID, SELFPAY ==
[2021-07-02 14:17] VITALS: BP 125/81; PULSE 80; RESP 18; TEMP 36.6; O2SAT 96; BMI 45.3
[2021-07-02 14:40] VITALS: BP 135/80; PULSE 66; RESP 18; O2SAT 97
[2021-07-02 14:41] VITALS: BP 135/80; PULSE 66; RESP 18; O2SAT 97
--- NOTE | 2021-07-02 14:42 | P.PCN_ITS ---
- Procedure Date: 07/02/21 Time: 14:42 Anesthesiologist:: Jeovany Rivas MD Complications:: None Pre-procedure Diagnosis:: Degenerative disc disease of lumbar spine with lumbar radiculopathy symptoms Post-procedure Diagnosis:: Same Indications for Procedure:: Patient is a pleasant 40-year-old white male who we are treating for low back pain with lumbar radiculopathy symptoms. He has had previous SI joint injections, medial branch blocks, RFA, left SI joint stabilization. He was doing well up until recent fall in [place]. Since then he has had increasing pain in his back and down his legs. We will do lumbar epidural steroid injection today to see if this helps with his pain symptoms. Procedure Details:: Informed consent was obtained and the risk and benefits of the procedure was explained to the patient. The patient was taken to the procedure room. The patient was placed prone on the procedure table. The patient was prepped and draped in sterile fashion. C-arm fluoroscopy was used to view the lumbar spine. Skin and subcutaneous tissues were anesthetized using lidocaine. I placed an 18-gauge epidural needle and advanced into the L4-L5 interspace using fluoroscopic guidance and [id number] to air. After confirmation of needle placement in the epidural space with dye I injected 2 mL of lidocaine 1.5% with Depo-Medrol 80 mg. Patient tolerated the procedure well with no complications. Plan and Disposition:: Follow-up with him in 2 weeks. Will reevaluate symptoms at that time.
[2021-07-02 14:53] VITALS: BP 134/86; PULSE 67; RESP 20; O2SAT 96
== END 2021-07-02 14:55 | disposition home or self-care (01) ==
LOC: SC.PAINP 14:10
PROVIDERS: PCP Nurse Practitioner Family; Visit Provider Anesthesiology
DX: M51.16 Intervertebral disc disorders with radiculopathy, lumbar region (principal); E78.5 Hyperlipidemia, unspecified; I10 Essential (primary) hypertension; K21.9 Gastro-esophageal reflux disease without esophagitis; M19.90 Unspecified osteoarthritis, unspecified site; F41.9 Anxiety disorder, unspecified; Z72.0 Tobacco use; G47.33 Obstructive sleep apnea (adult) (pediatric)
CPT/HCPCS: 62323; J1040; Q9966

== ENCOUNTER → 2021-10-22 16:00 | Outpatient (CLI) | payer MEDICAID, SELFPAY | PROVIDERS: Visit Provider Nurse Practitioner Family | DX: R10.9 Unspecified abdominal pain (principal) | CPT/HCPCS: 87086 ==

== ENCOUNTER → 2021-12-22 14:11 | Outpatient (CLI) | payer MEDICAID, SELFPAY ==
--- NOTE | 2021-12-22 14:11 | CT_ITS ---
FINAL REPORT CLINICAL HISTORY: LUQ PAIN FINDINGS: CT ABDOMEN & PELVIS W/O CONTRAST Axial CT images of the abdomen and pelvis were obtained without intravenous contrast. Coronal reformatted images were also obtained.This study was performed with techniques to keep radiation doses as low as reasonably achievable (ALARA). Individualized dose reduction techniques using automated exposure control or adjustment of mA and/or kV according to the patient's size were employed. Abdomen: There is a ground-glass nodule in the right lung base measuring 10 mm. There is no evidence of renal stone or hydronephrosis. The gallbladder is present. There is diffuse fatty infiltration of the liver. The spleen and pancreas have an unremarkable, unenhanced appearance. No mass or adenopathy is seen. No inflammatory process is identified. Pelvis: Images of the pelvis reveal no evidence of ureteral dilation or ureteral stone. The appendix is normal. No mass or abnormal fluid collection is identified. IMPRESSION: No renal or ureteral stone, or hydronephrosis. Diffuse fatty infiltration of the liver. Reviewed, Interpreted and Dictated by Taye Jose III, MD Transcribed by Tiny Bardales Authenticated by Taye Jose III, MD on 12/22/2021 04:10:44 PM [facility]
== END ==
PROVIDERS: PCP Nurse Practitioner Family; Visit Provider Nurse Practitioner Family
DX: R10.12 Left upper quadrant pain (principal); R10.9 Unspecified abdominal pain
CPT/HCPCS: 74176

== ENCOUNTER → 2022-07-13 16:15 | Outpatient (CLI) | payer MEDICAID, SELFPAY ==
[2022-07-13 17:42] LABS: Basophils # 0.1 K/mm3 (0-0.2); Basophils % 1.2 % (0.1-2.0); Eosinophils # 0.4 K/mm3 (0.0-0.4); Eosinophils % 3.7 % (0.1-12.0); Hematocrit 50.4 % (42.0-52.0); Hemoglobin 16.3 g/dL (14.1-18.0); Lymphocytes # 2.8 K/mm3 (0.7-4.5); Lymphocytes % 30.1 % (10-50); Mean Corpuscular HGB Conc 32.4 g/dL (31.8-35.4); Mean Corpuscular Hemoglobin 30.1 pg (27.0-31.2); Mean Corpuscular Volume 92.9 fl (80-94); Mean Platelet Volume 9.1 fl (7.4-10.4); Monocytes # 0.6 K/mm3 (0.1-1.0); Monocytes % 6.2 % (1.7-9.3); Neutrophils # 5.5 K/mm3 (1.8-7.8); Neutrophils % 58.7 % (37.0-80.0); Platelet Count 280 K/mm3 (142-424); Red Blood Count 5.42 M/mm3 (4.60-6.20); Red Cell Distribution Width 13.9 % (11.5-17.5); White Blood Count 9.4 K/mm3 (4.8-10.8)
[2022-07-13 18:02] LABS: Amphetamine/Metha Screen,Urine Negative ng/ml (<1000)
[2022-07-13 18:04] LABS: Cannabinoid Screen,Urine Negative ng/ml (<50)
[2022-07-13 18:05] LABS: Benzodiazepines Screen,Urine Negative ng/ml (<200)
[2022-07-13 18:07] LABS: Cocaine Screen,Urine Negative ng/ml (<300); Methadone Screen,Urine Negative ng/ml (<300)
[2022-07-13 18:08] LABS: Opiate Screen,Urine Negative ng/ml (<300)
[2022-07-13 18:09] LABS: Phencyclidine Screen,Urine Negative ng/ml (<25)
[2022-07-13 18:30] LABS: Chloride 100 mmol/L (98-107); Sodium 139 mmol/L (136-145)
[2022-07-13 18:31] LABS: Potassium 4.4 mmoL/L (3.5-5.1)
[2022-07-13 18:33] LABS: Alanine Aminotransferase 65 U/L (12-78); Albumin Level 4.5 g/dl (3.5-5.0); Albumin/Globulin Ratio 1.9 (1.1-1.8); Alkaline Phosphatase 100 U/L (38-126); Anion Gap 17.4 mEq/L (5-15); Aspartate Amino Transferase 51 U/L (17-59); Bilirubin,Total 0.3 mg/dl (0.2-1.3); Blood Urea Nitrogen 12 mg/dl (9-20); Carbon Dioxide 26 mmol/L (22.0-30.0); Cholesterol 179 mg/dl (140-200); Estimated Glomerular Filt Rate 93 ml/min (>60); GFR (African American) 112 ML/MIN (>60); Globulin 2.4 g/dL (1.3-3.2); Total Protein,Serum 6.9 g/dl (6.3-8.2); Triglycerides 297 mg/dl (30-150); VLDL Cholesterol 59 mg/dL (0-40)
[2022-07-13 18:34] LABS: Barbiturates Screen,Urine Negative ng/ml (<200); Calcium 9.7 mg/dl (8.4-10.2); Chol/HDL Ratio 5.1 (1-3.5); Glucose 106 mg/dl (74-100); HDL Cholesterol 35 mg/dl (40-60)
[2022-07-13 18:45] LABS: Direct LDL Cholesterol 94.31 mg/dL (100-129)
[2022-07-13 19:15] LABS: Thyroid Stimulating Hormone 1.63 uIU/mL (0.465-4.68)
== END ==
PROVIDERS: PCP Nurse Practitioner Family; Visit Provider Nurse Practitioner Family
DX: I10 Essential (primary) hypertension (principal); R53.83 Other fatigue; Z79.899 Other long term (current) drug therapy; Z12.5 Encounter for screening for malignant neoplasm of prostate
CPT/HCPCS: 80053; 80061; 80305; 84443; 85025; G0103

== ENCOUNTER → 2022-08-04 13:57 | Outpatient (POV) | payer MEDICAID, SELFPAY ==
[2022-08-04 14:16] VITALS: BP 127/60; PULSE 74; RESP 18; O2SAT 98; BMI 43.4
--- NOTE | 2022-08-04 14:25 | EXP.PAIN.OV ---
HPI Data of Consult Patient: known to practice within the last 3 years Consult date: 08/04/22 Requesting Physician: Amelia Benedict APRN Consult Narrative Reason for consult: Low back pain, bilateral leg pain, bilateral hip pain, bilateral knee pain History of present illness: Mr. Denis is a 41 year old male who presents today as a new patient. He is a referral from Joe Joseph's office. He has been a previous [facility] pain management patient a little over a year ago. Today the patient rates his pain a 8 out of 10. Patient states the pain is all in his low back that radiates into primarily his right hip. Patient does state he has pain in both his hips along with burning and tingling in his legs. Patient states he has occasionally had a fall here in the ER. He states his last fall was approximately 2 weeks ago where his hip buckled and he went down. Patient denies any significant trauma or injury. Patient states this has been going on for years and have progressively worsened over time. Patient does state the pain in his hips is a deeper inward pain that is worse with increased activity. Patient states he has gained weight which is worsened his pain symptoms in his joints. Patient previously did have injective therapy that provided significant improvement including lumbar epidural, medial branch blocks with RFA in 2019 as well as SI injections and left SI stabilization in October 2020. Patient has tried lcgn-[id number]-fuejxse ibuprofen and Tylenol as well as diclofenac with minimal relief. Patient did see a neurosurgeon last year who started him on gabapentin for his pain in his lower extremities. Patient is prescribed gabapentin 300 mg twice a day from his primary care doctor. Patient denies any side effects from this medication. He states this medication does help manage his pain symptoms. His Kehinde is [id number]. It has been reviewed and appropriate. CC: Amelia Benedict APRN [facility] Disclaimer: The information contained in this section may have been updated after the patient was seen, as this information can be updated by other users. Medical History (Updated 08/04/22 @ 14:31 by Amelia Benedict APRN) Depression HLD (hyperlipidemia) HTN (hypertension) Restless legs Surgical History (Updated 08/04/22 @ 14:22 by Carmelina Bingham RN) Status post fusion of sacroiliac joint Social History (Updated 12/01/22 @ 14:22 by Carmelina Bingham RN) Smoking Status: Current every day smoker tobacco type: cigarettes packs per day: 2 second hand exposure: No alcohol intake: never substance use type: marijuana current occupational status: unemployed and disabled Travel in the last 8 weeks: None household members: spouse housing: house current occupational exposures/hazards: No caffeine: Yes Review of Systems Review of Systems Review of systems:: pertinent systems reviewed and negative unless documented below Review of systems (narrative): Review of Systems: General: No recent weight changes, no fever, no sleep disturbances Respiratory: No cough, no shortness of air, no recurring pulmonary infections Cardiovascular/peripheral vascular: No chest pain, no palpitations, no edema, no shortness of breath Gastrointestinal: No new onset incontinence, normal bowel movements reported Genitourinary: No new onset incontinence Musculoskeletal: Low back pain, bilateral hip pain, bilateral knee pain Psychiatric: [Normal mood/affect] Neurological: [Denies weakness in extremities], [denies balance issues] Meds Home Medications and Allergies Home Medications Medication Instructions Recorded Confirmed Type Vistaril 25 mg capsule 25 mg PO TID PRN itching #60 caps 02/18/20 08/04/22 Rx (hydroxyzine pamoate) ropinirole 1 mg tablet 1 mg PO HS RLS #90 tabs 11/24/21 08/04/22 Rx acetaminophen 500 mg capsule 500 mg PO QID Pain #90 caps 02/08/22 08/04/22 Rx montelukast 10 mg tablet 10 mg PO PM . #90 tabs 03/16/22 08/04/22 Rx atorvasta
== END ==
PROVIDERS: Visit Provider Nurse Practitioner Family
DX: M51.16 Intervertebral disc disorders with radiculopathy, lumbar region (principal); M46.1 Sacroiliitis, not elsewhere classified; M25.551 Pain in right hip; M25.552 Pain in left hip; M25.561 Pain in right knee; M25.562 Pain in left knee; Z72.0 Tobacco use
CPT/HCPCS: 99202; G0463

== ENCOUNTER 2022-08-16 12:54 | Day surgery (SDC) | payer MEDICAID, SELFPAY ==
[2022-08-16 13:04] VITALS: BP 143/89; PULSE 87; RESP 18; TEMP 36.6; O2SAT 98; BMI 43.2
[2022-08-16 13:11] VITALS: BP 130/70; PULSE 73; RESP 18; O2SAT 97
[2022-08-16 13:12] VITALS: BP 130/70; PULSE 73; RESP 18; O2SAT 97
--- NOTE | 2022-08-16 13:15 | P.PCN_ITS ---
Procedure Date: 08/16/22 Time: 13:10 Anesthesiologist:: Bryant De La Cruz CRNA Complications:: None Pre-procedure Diagnosis:: Osteoarthritis bilateral hips. Post-procedure Diagnosis:: Same. Indications for Procedure:: Very pleasant 41-year-old male that comes our clinic today for bilateral intra- articular hip injections. Patient is complaining today of bilateral groin pain. Pain intensifies when ambulating for any distance. Pain increases transitioning from sitting to standing. Patient rates his pain 8/10. Procedure Details:: Details of the procedure were explained to the patient. The patient was taken to procedure room placed in the supine position. The area over the bilateral hips was cleaned using chlorhexidine as a cleansing solution. Using fluoroscopy guidance a 3 and half inch 22-gauge spinal needle was used to access the right hip joint without difficulty. After negative aspiration 3 cc of 1% lidocaine +3 cc of 0.25% Marcaine and 40 mg of Depo-Medrol was injected. Same procedure was carried out over the left hip. Needle was withdrawn. Band-Aid applied. Patient tolerated procedure without difficulty. There are no complications. Plan and Disposition:: Patient was discharged without incident
[2022-08-16 13:18] VITALS: BP 142/76; PULSE 80; RESP 18; O2SAT 98
== END 2022-08-16 13:18 | disposition home or self-care (01) ==
PROVIDERS: PCP Nurse Practitioner Family; Visit Provider Nurse Anesthetist, Certified Registered
DX: M16.0 Bilateral primary osteoarthritis of hip (principal); F17.210 Nicotine dependence, cigarettes, uncomplicated
CPT/HCPCS: 20610; J1040

== ENCOUNTER → 2022-09-01 09:44 | Outpatient (POV) | payer MEDICAID, SELFPAY ==
[2022-09-01 09:58] VITALS: BP 137/74; PULSE 64; RESP 18; O2SAT 98; BMI 43.3
--- NOTE | 2022-09-01 10:02 | EXP.PAIN.SOA ---
[facility] Pain Management SOAP Note Subjective:: Patient is a pleasant 41-year-old male who presents today for follow-up of bilateral intra-articular hip injections on 08/16/2022. We are currently treating the patient for degenerative disc disease of lumbar spine with lumbar radiculopathy symptoms, bilateral sacroiliitis, bilateral hip pain, low back pain, bilateral knee pain. Today the patient states he had approximately 90 to 100% relief following these injections. Today he rates his pain a 0 out of 10. Patient states he has been able to increase his activity including walking for longer distances with decreased pain symptoms. Patient does state that he occasionally will have back pain however it does seem more dependent on the weather. Patient is currently managed with gabapentin 300 mg 3 times a day from his primary care doctor. Patient denies any side effects from this medication. He states this medication does help with his neuropathy symptoms. His Kehinde is [id number]. Its been reviewed and appropriate. Review of Systems: General: No recent weight changes, no fever, no sleep disturbances Respiratory: No cough, no shortness of air, no recurring pulmonary infections Cardiovascular/peripheral vascular: No chest pain, no palpitations, no edema, no shortness of breath Gastrointestinal: No new onset incontinence, normal bowel movements reported Genitourinary: No new onset incontinence Musculoskeletal: Low back pain Psychiatric: [Normal mood/affect] Neurological: [Denies weakness in extremities], [denies balance issues] Objective:: Physical Exam: General: Alert and oriented x3, no acute distress, pleasant and cooperative Lungs: Respirations even and unlabored, symmetrical chest expansion Eyes: PERRL Musculoskeletal: Flexion and extension of lumbar [spine] somewhat guarded secondary to pain, [antalgic gait noted] Neurological: Speech clear, no gross sensory deficit Assessment:: Degenerative disc disease of lumbar spine with lumbar radiculopathy symptoms, bilateral sacroiliitis, bilateral hip pain, low back pain, bilateral knee pain Plan:: Patient has had significant improvement of his bilateral hip pain following his last intra-articular injections and does not require any additional injective therapy. I have discussed with the patient that he may benefit from meloxicam 15 mg daily. I have counseled the patient to take this medication with food to minimize GI upset and to discontinue all other NSAIDs while taking this medication. I will send in a 1 month supply of this medication. Patient will return to clinic in 1 month for reevaluation of symptoms, medication refill if indicated and follow-up. Patient has been instructed to contact the clinic with any concerns before the next appointment. Dr. Rivas has reviewed this note and agrees with this plan of care. This note was dictated using voice recognition software and make contain errors or omissions. [facility] Disclaimer: The information contained in this section may have been updated after the patient was seen, as this information can be updated by other users. Medical History Depression HLD (hyperlipidemia) HTN (hypertension) Restless legs Surgical History Status post fusion of sacroiliac joint Family History (Updated 08/16/22 @ 12:59 by Loretta Amos RN) Other No significant family history Social History Smoking Status: Current every day smoker tobacco type: cigarettes packs per day: 2 second hand exposure: No alcohol intake: never substance use type: marijuana current occupational status: disabled Travel in the last 8 weeks: None household members: spouse housing: house current occupational exposures/hazards: No caffeine: Yes
== END | disposition home or self-care (01) ==
PROVIDERS: PCP Nurse Practitioner Family; Visit Provider Nurse Practitioner Family
DX: M51.16 Intervertebral disc disorders with radiculopathy, lumbar region (principal); M46.1 Sacroiliitis, not elsewhere classified; M25.551 Pain in right hip; M25.552 Pain in left hip; M25.561 Pain in right knee; M25.562 Pain in left knee; F17.210 Nicotine dependence, cigarettes, uncomplicated; Z79.899 Other long term (current) drug therapy
CPT/HCPCS: 99212; G0463

== ENCOUNTER → 2022-09-29 14:28 | Outpatient (POV) | payer MEDICAID, SELFPAY ==
[2022-09-29 14:35] VITALS: BP 127/69; PULSE 72; RESP 18; O2SAT 98; BMI 44.3
--- NOTE | 2022-09-29 14:42 | EXP.PAIN.SOA ---
[facility] Pain Management SOAP Note Subjective:: Patient is a 41-year-old male who presents today for follow-up. We are currently treating the patient for degenerative disc disease of lumbar spine with lumbar radiculopathy symptoms, bilateral sacroiliitis, bilateral hip pain, low back pain, bilateral knee pain. Today he rates his pain a 2 out of 10. Patient denies any new trauma or injury. Patient does state that he feels like his back pain has worsened since our last visit. Patient states he has to take more frequent breaks than previously. Patient does describe this as a aching, throbbing sensation that is worse with increased activity. Patient does state the pain goes down his bilateral lower extremities. Patient has had a lumbar epidural steroid injection in the past that provided significant improvement lasting several months. Patient is interested in repeating this injection. Patient was recently started on meloxicam at our last visit and states he has had significant improvement with this medication addition. Patient states he does seem to have significant improvement within his joints. Patient is requesting a refill at today's visit. He is also managed with gabapentin 300 mg 3 times a day from his primary care doctor. Patient denies any side effects from this medication. Patient states that his insurance may change at the end of October. His Kehinde is [phone]. Its been reviewed and appropriate. Review of Systems: General: No recent weight changes, no fever, no sleep disturbances Respiratory: No cough, no shortness of air, no recurring pulmonary infections Cardiovascular/peripheral vascular: No chest pain, no palpitations, no edema, no shortness of breath Gastrointestinal: No new onset incontinence, normal bowel movements reported Genitourinary: No new onset incontinence Musculoskeletal: Low back pain, leg pain Psychiatric: [Normal mood/affect] Neurological: [Denies weakness in extremities], [denies balance issues] Objective:: Physical Exam: General: Alert and oriented x3, no acute distress, pleasant and cooperative Lungs: Respirations even and unlabored, symmetrical chest expansion Eyes: PERRL Musculoskeletal: Flexion and extension of lumbar [spine] somewhat guarded secondary to pain, [antalgic gait noted] Neurological: Speech clear, no gross sensory deficit ORT score updated with low risk Assessment:: Degenerative disc disease of lumbar spine with lumbar radiculopathy symptoms, bilateral sacroiliitis, bilateral hip pain, low back pain, bilateral knee pain Plan:: Patient is experiencing significant pain in his low back with radiating symptoms into his lower extremities. Patient did have limited range of motion of his lumbar spine during today's visit. I have discussed with the patient that he may benefit from a lumbar epidural steroid injection. Risk and benefits were discussed with the patient. He would like to proceed forward with this plan of care. He is not on any blood thinners. I will also refill the patient's meloxicam 15 mg daily and provide a 3-month supply of this medication. We will schedule the patient for a LESI L4-L5. Patient has been instructed to contact the clinic with any concerns before the next appointment. Dr. Rivas has reviewed this note and agrees with this plan of care. This note was dictated using voice recognition software and make contain errors or omissions. [facility] Disclaimer: The information contained in this section may have been updated after the patient was seen, as this information can be updated by other users. Medical History Depression HLD (hyperlipidemia) HTN (hypertension) Restless legs Surgical History Status post fusion of sacroiliac joint Family History (Updated 08/16/22 @ 12:59 by Loretta Amos RN) Other No significant family history Social Histo
== END | disposition home or self-care (01) ==
PROVIDERS: PCP Nurse Practitioner Family; Visit Provider Nurse Practitioner Family
DX: M51.16 Intervertebral disc disorders with radiculopathy, lumbar region (principal); M46.1 Sacroiliitis, not elsewhere classified; M25.551 Pain in right hip; M25.552 Pain in left hip; M25.561 Pain in right knee; M25.562 Pain in left knee
CPT/HCPCS: 99212; G0463

== ENCOUNTER 2022-10-04 10:05 | Day surgery (SDC) | payer MEDICAID, SELFPAY ==
[2022-10-04 10:14] VITALS: BP 123/79; PULSE 87; RESP 18; O2SAT 99
[2022-10-04 10:16] VITALS: BP 134/76; PULSE 92; RESP 18; TEMP 36.5; O2SAT 97; BMI 44.6
--- NOTE | 2022-10-04 10:20 | EXP.PAIN.PRO ---
Procedure Date: 10/04/22 Time: 10:15 Anesthesiologist:: Bryant De La Cruz CRNA Complications:: None Pre-procedure Diagnosis:: Degenerative disc disease lumbar spine multilevels. Lumbar radiculopathy., Lumbar postlaminectomy syndrome Post-procedure Diagnosis:: Same. Indications for Procedure:: Very pleasant 41-year-old male that comes our clinic today for lumbar epidural steroid injections L4-5 level. Patient describes low back pain as well as bilateral hip and leg radicular symptoms at times. He has had significant improvement terms of his symptoms with previous lumbar epidural steroid injection. He rates his pain 03/13 Procedure Details:: Procedure: Lumbar epidural steroid injection under fluoroscopy Informed consent was obtained and the risks and benefits of the procedure were explained to the patient. The patient was taken to the procedure room and noninvasive monitors placed, including noninvasive blood pressure cuff and pulse oximeter. The back was viewed using C-arm Fluoroscopy and prepped using Chloraprep as a cleansing solution and the L4-L5 interspace was palpated. Skin and subcutaneous tissues were anesthetized using lidocaine 1.5% and a 25-gauge needle. After this, an 18-gauge Touhy epidural needle was placed into the L4-L5 interspace and advanced using fluoroscopic guidance and loss of resistance to air until the epidural space was encountered. After confirmation of needle placement in the epidural space, with dye, a solution containing normal saline, 3 mL and Depo-Medrol 80 mg were incrementally injected into the lumbar epidural space. The patient tolerated the procedure well with no complications. The patient was observed in the Pain Clinic and then discharged home neurologically intact. Plan and Disposition:: Patient was discharged without incident.
[2022-10-04 10:22] VITALS: BP 131/71; PULSE 73; RESP 18; TEMP 36.5; O2SAT 97
== END 2022-10-04 10:22 | disposition home or self-care (01) ==
PROVIDERS: PCP Nurse Practitioner Family; Visit Provider Nurse Anesthetist, Certified Registered
DX: M51.16 Intervertebral disc disorders with radiculopathy, lumbar region (principal); M96.1 Postlaminectomy syndrome, not elsewhere classified
CPT/HCPCS: 62323; J1040

== ENCOUNTER → 2022-10-19 13:21 | Outpatient (POV) | payer MEDICAID, SELFPAY ==
[2022-10-19 13:40] VITALS: BP 129/72; PULSE 73; RESP 18; O2SAT 98; BMI 44.6
--- NOTE | 2022-10-19 14:54 | EXP.PAIN.SOA ---
[facility] Pain Management SOAP Note Subjective:: Patient is a pleasant 41-year-old male who presents today for follow-up of lumbar epidural steroid injection at L4-L5 on 10/04/2022. We are currently treating the patient for degenerative disc disease of lumbar spine with lumbar radiculopathy symptoms, bilateral sacroiliitis, bilateral hip pain, low back pain, bilateral knee pain, status post SI stabilization procedure with corner loc. Today he states that he did not notice significant improvement with this injection. Patient states he did actually have worsening pain for 1 week following. Patient states this has resolved and he is back to his baseline. Patient rates his pain a 4 out of 10. Patient denies any new trauma or injury. Patient denies any change to location or type of pain he experiences. Patient states he does have more back pain that is worse with increased activity. Patient does describe this as a aching, throbbing sensation. Patient does state it affects his ability to perform activities of daily living such as working around the house or even simple ambulation. Patient states that he does have to frequently take breaks. Patient has had prior epidurals in the past that did provide significant improvement lasting several months. Patient is currently prescribed meloxicam 15 mg daily and compounding cream from our office. Patient was just given a 3-month supply of his meloxicam in our September appointment and does not need refills at this time. Patient denies any side effects from this medicine. He is also managed with gabapentin 300 mg 3 times a day by his primary care doctor. His Kehinde is [id number]. Its been reviewed and appropriate. Review of Systems: General: No recent weight changes, no fever, no sleep disturbances Respiratory: No cough, no shortness of air, no recurring pulmonary infections Cardiovascular/peripheral vascular: No chest pain, no palpitations, no edema, no shortness of breath Gastrointestinal: No new onset incontinence, normal bowel movements reported Genitourinary: No new onset incontinence Musculoskeletal: Low back pain Psychiatric: [Normal mood/affect] Neurological: [Denies weakness in extremities], [denies balance issues] Objective:: Physical Exam: General: Alert and oriented x3, no acute distress, pleasant and cooperative Lungs: Respirations even and unlabored, symmetrical chest expansion Eyes: PERRL Musculoskeletal: Flexion and extension of lumbar [spine] somewhat guarded secondary to pain, [antalgic gait noted] Neurological: Speech clear, no gross sensory deficit PROCEDURE:? XR LUMBAR SPINE MIN 4V CLINICAL INDICATION:? FALL WITH WORESENING PAIN COMPARISON:? MR MR LUMBAR SPINE WO CON from 01/21/2021 FINDINGS: No fracture or dislocation. No lytic or blastic change. There is normal mineralization. There is normal alignment.? Degenerative disc disease is present at L5-S1.? There is mild retrolisthesis of the tip of the coccyx by approximately 5 mm. Other findings:None. IMPRESSION: Degenerative disc disease L5-S1. 5 mm retrolisthesis the tip of the coccyx which could be posttraumatic in nature. Dictated by: ? Elian Klein MD? 06/15/2021 14:18 ?Elian Klein MD in [place] 06/15/2021 14:18 Assessment:: Degenerative disc disease of lumbar spine with lumbar radiculopathy symptoms, bilateral sacroiliitis, bilateral hip pain, low back pain, bilateral knee pain Plan:: Patient continues to experience significant pain in his back with radiating symptoms into his lower extremity. Patient did have limited range of motion of his lumbar spine during today's visit. I have discussed with the patient that he may benefit from a lumbar epidural steroid injection at a different level. Patient's previous x-ray did show degenerative disc disease more prominent at L5-S1 along with mild retrolisthesis of the tip of the coccyx. Risk and benefits of this injection were discussed with the patient and he would like to proceed forward
== END | disposition home or self-care (01) ==
PROVIDERS: PCP Nurse Practitioner Family; Visit Provider Nurse Practitioner Family
DX: M51.16 Intervertebral disc disorders with radiculopathy, lumbar region (principal); M46.1 Sacroiliitis, not elsewhere classified; M25.551 Pain in right hip; M25.552 Pain in left hip; M54.50 Low back pain, unspecified; M25.561 Pain in right knee; M25.562 Pain in left knee
CPT/HCPCS: 99212; G0463

== ENCOUNTER → 2022-11-08 07:39 | Outpatient (CLI) | payer MEDICAID, SELFPAY ==
--- NOTE | 2022-11-08 07:43 | MR_ITS ---
FINAL REPORT CLINICAL HISTORY: LOW BACK PAIN. RIGHT LEG BURNING. HISTORY LUMBAR SURGERY 2 YEARS AGO FINDINGS: Multiplanar MR imaging of the lumbar spine was performed without contrast. On the sagittal T2-weighted images, disc degeneration is seen at multiple levels. There are endplate changes at L5-S1. The vertebral alignment is normal. There is no evidence of fracture. The conus has an unremarkable appearance. T12-L1: There is no significant canal stenosis or neural foraminal narrowing. L1-2: There is no significant canal stenosis or neural foraminal narrowing. L2-3: An annular bulge is present. There is no significant canal stenosis or neural foraminal narrowing. L3-4: An annular bulge is present. There is no significant canal stenosis or neural foraminal narrowing. L4-5: An annular bulge is present. There is a central inferiorly extruded disc which indents the thecal sac and contacts the right L5 nerve root. There is mild bilateral neural foraminal narrowing. L5-S1: An annular bulge is present. Facet arthropathy and osteophytes are present. There is mild right and moderate left neural foraminal narrowing. There is mild spurring of the sacroiliac joints. IMPRESSION: Central inferiorly extruded disc at L4-5 contacts the right L5 nerve root. Multilevel degenerative disc disease and spondylosis. Reviewed, Interpreted and Dictated by Taye Jose III, MD Transcribed by Heather Pepe Authenticated and [facility]
== END ==
PROVIDERS: PCP Nurse Practitioner Family; Visit Provider Nurse Practitioner Family
DX: M54.50 Low back pain, unspecified (principal)
CPT/HCPCS: 72148; 76376

== ENCOUNTER 2022-11-08 08:46 | Day surgery (SDC) | payer MEDICAID, SELFPAY ==
[2022-11-08 09:08] VITALS: BP 129/76; PULSE 67; RESP 18; TEMP 36.7; O2SAT 100; BMI 44.6
[2022-11-08 09:32] VITALS: BP 150/94; PULSE 64; RESP 18; O2SAT 97
[2022-11-08 09:33] VITALS: BP 150/94; PULSE 64; RESP 18; O2SAT 97
[2022-11-08 09:40] VITALS: BP 130/66; PULSE 55; RESP 18; O2SAT 100
--- NOTE | 2022-11-08 09:41 | EXP.PAIN.PRO ---
Procedure Date: 11/08/22 Time: 09:30 Anesthesiologist:: Bryant De La Cruz CRNA Complications:: None Pre-procedure Diagnosis:: Degenerative disc disease lumbar spine multilevels. Lumbar radiculopathy Post-procedure Diagnosis:: Same. Indications for Procedure:: Very pleasant 42-year-old male who comes for L5-S1 lumbar epidural steroid injection. Patient is status post bilateral sacroiliac joint fusions. He is doing well in the posterior hip area. However, he has intense low back pain he describes as constant, dull, sharp and stabbing. He rates the pain 8/10. Patient also complains of bilateral leg radicular symptoms. Procedure Details:: Procedure: Lumbar epidural steroid injection under fluoroscopy Informed consent was obtained and the risks and benefits of the procedure were explained to the patient. The patient was taken to the procedure room and noninvasive monitors placed, including noninvasive blood pressure cuff and pulse oximeter. The back was viewed using C-arm Fluoroscopy and prepped using Chloraprep as a cleansing solution and the L4-L5 interspace was palpated. Skin and subcutaneous tissues were anesthetized using lidocaine 1.5% and a 25-gauge needle. After this, an 18-gauge Touhy epidural needle was placed into the L4-L5 interspace and advanced using fluoroscopic guidance and loss of resistance to air until the epidural space was encountered. After confirmation of needle placement in the epidural space, with dye, a solution containing normal saline, 3 mL and Depo-Medrol 80 mg were incrementally injected into the lumbar epidural space. The patient tolerated the procedure well with no complications. The patient was observed in the Pain Clinic and then discharged home neurologically intact. Plan and Disposition:: Patient was discharged without incident.
== END 2022-11-08 09:40 | disposition home or self-care (01) ==
PROVIDERS: PCP Nurse Practitioner Family; Visit Provider Nurse Anesthetist, Certified Registered
DX: M51.16 Intervertebral disc disorders with radiculopathy, lumbar region (principal); F17.210 Nicotine dependence, cigarettes, uncomplicated
CPT/HCPCS: 62323; J1040

== ENCOUNTER → 2022-11-24 14:28 | Outpatient (POV) | payer MEDICAID, SELFPAY ==
[2022-11-24 15:12] VITALS: BP 138/54; PULSE 72; RESP 19; O2SAT 96; BMI 43.2
--- NOTE | 2022-11-24 15:17 | EXP.PAIN.SOA ---
[facility] Pain Management SOAP Note Subjective:: Patient is a pleasant 42-year-old male who presents today for follow-up of lumbar epidural steroid injection at L4-L5 on 11/08/2022 and lumbar MRI follow-up. We are currently treating the patient for degenerative disc disease of lumbar spine with lumbar radiculopathy symptoms, bilateral sacroiliitis, bilateral hip pain, low back pain, bilateral knee pain, status post SI stabilization procedure with corner loc. Today he rates his pain a 1 out of 10. He states he has had at least 70% improvement following this injection and feels like it still continuing to provide relief. He denies any new trauma or injury. He denies any change to the location or type of pain that he experiences. He does state his pain is still all in his low back primarily along the right side and down his right leg. He does have burning and tingling into his upper thigh and describes his low back pain as an aching, throbbing sensation that is worse with increased activity. Following his injection he does state he has been able to increase his activity with decreased pain symptoms and better functionality. He is currently managed with meloxicam 15 mg daily and compounding cream. Patient denies any side effects from this medication. He is also prescribed gabapentin 300 mg twice a day from his primary care doctor. Patient denies any side effects from this medication. His Kehinde is [phone]. Its been reviewed and appropriate. Review of Systems: General: No recent weight changes, no fever, no sleep disturbances Respiratory: No cough, no shortness of air, no recurring pulmonary infections Cardiovascular/peripheral vascular: No chest pain, no palpitations, no edema, no shortness of breath Gastrointestinal: No new onset incontinence, normal bowel movements reported Genitourinary: No new onset incontinence Musculoskeletal: Low back pain Psychiatric: [Normal mood/affect] Neurological: [Denies weakness in extremities], [denies balance issues] Objective:: Physical Exam: General: Alert and oriented x3, no acute distress, pleasant and cooperative Lungs: Respirations even and unlabored, symmetrical chest expansion Eyes: PERRL Musculoskeletal: Flexion and extension of lumbar [spine] somewhat guarded secondary to pain, [antalgic gait noted] Neurological: Speech clear, no gross sensory deficit FINAL REPORT CLINICAL HISTORY: LOW BACK PAIN. RIGHT LEG BURNING. HISTORY LUMBAR SURGERY 2 YEARS AGO FINDINGS: Multiplanar MR imaging of the lumbar spine was performed without contrast. On the sagittal T2-weighted images, disc degeneration is seen at multiple levels.? There are endplate changes at L5-S1.? The vertebral alignment is normal.? There is no evidence of fracture.? The conus has an unremarkable appearance.? T12-L1: There is no significant canal stenosis or neural foraminal narrowing.? L1-2:? There is no significant canal stenosis or neural foraminal narrowing.? L2-3:? An annular bulge is present. There is no significant canal stenosis or neural foraminal narrowing.? L3-4:? An annular bulge is present.? There is no significant canal stenosis or neural foraminal narrowing.? L4-5: An annular bulge is present.? There is a central inferiorly extruded disc which indents the thecal sac and contacts the right L5 nerve root.? There is mild bilateral neural foraminal narrowing.? L5-S1:? An annular bulge is present.? Facet arthropathy and osteophytes are present.? There is mild right and moderate left neural foraminal narrowing.? There is mild spurring of the sacroiliac joints. IMPRESSION: Central inferiorly extruded disc at L4-5 contacts the right L5 nerve root.? ? Multilevel degenerative disc disease and spondylosis. Reviewed, Interpreted and Dictated by Taye Jose III, MD Transcribed by Heather Pepe Authenticated and [facility] Assessment:: Degenerative disc disea
== END ==
PROVIDERS: PCP Nurse Practitioner Family; Visit Provider Nurse Practitioner Family
DX: M51.16 Intervertebral disc disorders with radiculopathy, lumbar region (principal); M46.1 Sacroiliitis, not elsewhere classified; M25.551 Pain in right hip; M25.552 Pain in left hip; M25.561 Pain in right knee; M25.562 Pain in left knee
CPT/HCPCS: 99212; G0463

== ENCOUNTER → 2023-02-08 11:15 | Outpatient (POV) | payer MEDICAID, SELFPAY ==
[2023-02-08 11:22] VITALS: BP 120/63; PULSE 57; RESP 18; O2SAT 98; BMI 41.8
--- NOTE | 2023-02-08 11:54 | EXP.PAIN.SOA ---
[facility] Pain Management SOAP Note Subjective:: Patient is a pleasant 42-year-old male who presents today for medication refill and follow-up. We are currently treating the patient for degenerative disc disease of lumbar spine with lumbar radiculopathy symptoms, bilateral sacroiliitis, bilateral hip pain, low back pain, bilateral knee pain, status post SI stabilization procedure with corner lock. Today he rates his pain a 3 out of 10. Patient denies any new trauma or injury. Patient denies any change in location or type of pain he experiences. He is currently managed with meloxicam 15 mg daily and compounding cream. He is also prescribed gabapentin 300 mg twice a day from his primary care doctor. Patient denies any side effects from these medications. He is requesting a refill of his meloxicam during today's visit. He states he has been experiencing significant car problems and had difficulty getting to our office. His Kehinde is [phone]. Its been reviewed and appropriate. Review of Systems: General: No recent weight changes, no fever, no sleep disturbances Respiratory: No cough, no shortness of air, no recurring pulmonary infections Cardiovascular/peripheral vascular: No chest pain, no palpitations, no edema, no shortness of breath Gastrointestinal: No new onset incontinence, normal bowel movements reported Genitourinary: No new onset incontinence Musculoskeletal: Low back pain Psychiatric: [Normal mood/affect] Neurological: [Denies weakness in extremities], [denies balance issues] Objective:: Physical Exam: General: Alert and oriented x3, no acute distress, pleasant and cooperative Lungs: Respirations even and unlabored, symmetrical chest expansion Eyes: PERRL Musculoskeletal: Flexion and extension of lumbar [spine] somewhat guarded secondary to pain, [antalgic gait noted] Neurological: Speech clear, no gross sensory deficit Assessment:: Degenerative disc disease of lumbar spine with lumbar radiculopathy symptoms, bilateral sacroiliitis, bilateral hip pain, low back pain, bilateral knee pain, status post SI stabilization procedure with corner lock Plan:: I will refill the patient's meloxicam 15 mg daily and provide a 6-month supply of this medication. Patient will return to clinic in 6 months for reevaluation of symptoms and medication refill. Patient has been instructed to contact the clinic with any concerns before the next appointment. Dr. Rvias has reviewed this note and agrees with this plan of care. This note was dictated using voice recognition software and make contain errors or omissions. [facility] Disclaimer: The information contained in this section may have been updated after the patient was seen, as this information can be updated by other users. Medical History Depression HLD (hyperlipidemia) HTN (hypertension) Restless legs Surgical History Status post fusion of sacroiliac joint Family History Other No significant family history Social History Smoking Status: Current every day smoker tobacco type: cigarettes packs per day: 2 second hand exposure: No alcohol intake: never substance use type: marijuana current occupational status: employed Travel in the last 8 weeks: None household members: spouse housing: house current occupational exposures/hazards: No caffeine: Yes
[2023-02-08 19:10] LABS: Basophils # 0.1 K/mm3 (0-0.2); Basophils % 0.5 % (0.1-2.0); Eosinophils # 0.3 K/mm3 (0.0-0.4); Hematocrit 48.3 % (42.0-52.0); Hemoglobin 15.6 g/dL (14.1-18.0); Lymphocytes % 32.4 % (10-50); Mean Corpuscular HGB Conc 32.4 g/dL (31.8-35.4); Mean Corpuscular Hemoglobin 29.8 pg (27.0-31.2); Mean Corpuscular Volume 92.1 fl (80-94); Mean Platelet Volume 10.5 fl (7.4-10.4); Monocytes # 0.6 K/mm3 (0.1-1.0); Monocytes % 6.2 % (1.7-9.3); Neutrophils # 5.3 K/mm3 (1.8-7.8); Neutrophils % 57.8 % (37.0-80.0); Platelet Count 274 K/mm3 (142-424); Red Blood Count 5.25 M/mm3 (4.60-6.20); Red Cell Distribution Width 13.7 % (11.5-17.5); White Blood Count 9.2 K/mm3 (4.8-10.8)
[2023-02-08 19:48] LABS: Hemoglobin A1C 5.9 % (4.0-6.0)
[2023-02-08 19:49] LABS: Chloride 104 mmol/L (98-107); Sodium 139 mmol/L (136-145)
[2023-02-08 19:52] LABS: Alanine Aminotransferase 54 U/L (12-78); Albumin Level 4.5 g/dl (3.5-5.0); Alkaline Phosphatase 72 U/L (38-126); Aspartate Amino Transferase 43 U/L (17-59); Bilirubin,Total 0.3 mg/dl (0.2-1.3); Blood Urea Nitrogen 12 mg/dl (9-20); Calcium 9.3 mg/dl (8.4-10.2); Carbon Dioxide 23 mmol/L (22.0-30.0); Cholesterol 153 mg/dl (140-200); Creatinine Clearance Estimated 101 mL/min (50-200); Estimated Glomerular Filt Rate 82 ml/min (>60); GFR (African American) 99 ML/MIN (>60); Globulin 2.2 g/dL (1.3-3.2); Glucose 92 mg/dl (74-100); Total Protein,Serum 6.7 g/dl (6.3-8.2); Triglycerides 278 mg/dl (30-150); VLDL Cholesterol 56 mg/dL (0-40)
[2023-02-08 19:53] LABS: HDL Cholesterol 38 mg/dl (40-60)
[2023-02-08 19:55] LABS: 25-OH Vitamin D, Total 45.4 ng/mL (30-100)
[2023-02-08 20:23] LABS: Thyroid Stimulating Hormone 1.59 uIU/mL (0.465-4.68)
[2023-02-10 10:52] LABS: T4 (Thyroxine) 7.6 ug/dl (5.53-11.0)
[2023-02-15 18:06] LABS: Testosterone, Total, LC/MS 423 ng/dL (.)
== END | disposition home or self-care (01) ==
PROVIDERS: PCP Nurse Practitioner Family; Visit Provider Nurse Practitioner Family
DX: M51.16 Intervertebral disc disorders with radiculopathy, lumbar region (principal); M46.1 Sacroiliitis, not elsewhere classified; M25.551 Pain in right hip; M25.552 Pain in left hip; M25.561 Pain in right knee; M25.562 Pain in left knee
CPT/HCPCS: 80053; 80061; 82306; 83036; 84403; 84436; 84443; 85025; 99212; G0463

== ENCOUNTER → 2023-02-08 13:51 | Outpatient (CLI) | payer MEDICAID, SELFPAY | PROVIDERS: PCP Nurse Practitioner Family; Visit Provider Nurse Practitioner Family | DX: E55.9 Vitamin D deficiency, unspecified (principal) ==